=== PATIENT | female | born 1970 | race Caucasian/White ===

== ENCOUNTER 2022-12-18 10:50 | Outpatient (OUT) | payer OTHER, SELFPAY ==
--- NOTE | 2022-12-18 | MM_ITS ---
Patient: JANNETTE MORELOS. Exam Date: 12/18/2022 : 1970 Gender:F Ordering : DR. MINESH GARDNER M.D. Admission #: [id number] Family : Order #: [id number] CLICK HERE TO VIEW EXAM RADIOLOGY REPORT PROCEDURE: MM TOMOSYNTHESIS SCREENING BI COMPARISON: None. INDICATIONS: Justin Screening Mammogram Calculator Name NCI Breast Cancer Risk Assessment Tool 5 Year Breast Cancer Risk 0.90% Lifetime Breast Cancer Risk 7.90% Personal Breast Cancer No Personal Ovarian Cancer No Treatments None Family Cancers Aunt-maternal with breast cancer at age 45; Father with liver cancer at age 64; Grandfather-paternal with stomach/esophagus cancer at age 55. LOCATION: [facility] BREAST COMPOSITION: Scattered areas fibroglandular density. FINDINGS: DIAGNOSTIC CATEGORY 2--BENIGN FINDING. NO CHANGE FROM COMPARISON. Scattered benign-appearing nodules are present. Scattered benign-appearing calcifications are present. Scattered benign-appearing lymph nodes are present. RIGHT BREAST: No significant suspicious finding. LEFT BREAST: No significant suspicious finding. RECOMMENDATIONS: ROUTINE MAMMOGRAM AND CLINICAL EVALUATION IN 12 MONTHS. PLEASE NOTE: A NORMAL MAMMOGRAM DOES NOT EXCLUDE THE POSSIBILITY OF BREAST CANCER. A CLINICALLY SUSPICIOUS PALPABLE LUMP SHOULD BE BIOPSIED. Dictated by: Philippe Ballard MD on 12/18/2022 at 15:33 Approved by: Philippe Ballard MD on 12/18/2022 at 15:34
== END 2022-12-18 10:51 | disposition home or self-care (01) ==
LOC: MAMMO 10:52
PROVIDERS: PCP Family Medicine; Visit Provider Family Medicine
DX: Z12.31 Encounter for screening mammogram for malignant neoplasm of breast (principal); Z80.3 Family history of malignant neoplasm of breast; Z80.0 Family history of malignant neoplasm of digestive organs
CPT/HCPCS: 77063; 77067

== ENCOUNTER 2023-01-11 13:19 | Outpatient (OUT) | payer OTHER, SELFPAY ==
[2023-01-11 13:54] LABS: Alanine Aminotransferase 41 U/L (14-59); Albumin Globulin Ratio 0.9; Albumin Level 3.6 g/dL (3.4-5.0); Alkaline Phosphatase 85 U/L (46-116); Anion Gap 15.7; Aspartate Amino Transferase 37 U/L (15-37); BUN Creatinine Ratio 19.4; Bilirubin Total 0.3 mg/dL (0.2-1.0); Calcium 8.6 mg/dL (8.5-10.1); Carbon Dioxide 27.4 mmol/L (21.0-32.0); Chloride 98 mmol/L (98-107); Chol HDL Ratio 4.9; Cholesterol 173 mg/dL (<=200); Estimated GFR (African America >60 (>=60); Estimated GFR (Non-African Ame >60 (>=60); Globulin 4.2 g/dL; Glucose 173 mg/dL (74-106); HDL Cholesterol 35 mg/dL (40-60); Potassium 4.1 mmol/L (3.5-5.1); Sodium 137 mmol/L (136-145); Thyroid Stimulating Hormone 2.244 uIU/mL (0.358-3.740); Total Protein 7.8 g/dL (6.4-8.2); Triglycerides 195 mg/dL (<=150)
[2023-01-11 14:45] LABS: Basophils Percent Auto 0.4 % (0.2-2.0); Eosinophils Absolute Auto 0.2 10^3/uL (0.0-0.7); Hematocrit 35.9 % (36.0-48.0); Hemoglobin 11.3 g/dL (12.0-16.0); Immature Granulocytes Abs Auto 0.09 10^3/uL (0.00-0.03); Immature Granulocytes Pct Auto 1.2 % (0.0-0.5); Lymphocytes Absolute Auto 2.2 10^3/uL (1.2-3.8); Lymphocytes Percent Auto 28.4 % (20.5-60.0); Mean Corpuscular HGB Conc 31.5 g/dL (29.9-35.2); Mean Corpuscular Hemoglobin 29.4 pg (26.7-34.0); Mean Corpuscular Volume 93.2 fL (81.0-99.0); Monocytes Absolute Auto 0.4 10^3/uL (0.3-0.8); Neutrophils Absolute Auto 4.8 10^3/uL (1.4-6.5); Platelet Count 315 10^3/uL (150-450); Red Blood Count 3.85 10^6/uL (4.20-5.40); Red Cell Distribution Width 12.6 % (11.0-15.0); White Blood Count 7.6 10^3/uL (4.0-11.0)
[2023-01-11 14:52] LABS: Estimated Average Glucose 206 mg/dL; Glycohemoglobin A1C 8.8 % (4.5-6.2)
== END 2023-01-11 13:20 | disposition home or self-care (01) ==
LOC: LAB 13:19
PROVIDERS: PCP Family Medicine; Visit Provider Family Medicine
DX: I10 Essential (primary) hypertension (principal); R73.03 Prediabetes
CPT/HCPCS: 36415; 80053; 80061; 83036; 84443; 85025

== ENCOUNTER 2023-05-08 14:13 | Outpatient (RCR) | payer OTHER, SELFPAY | END 2023-06-03 12:28 | disposition home or self-care (01) | LOC: PT 14:13 | PROVIDERS: PCP Family Medicine; Visit Provider Nurse Practitioner Adult Health | DX: M54.2 Cervicalgia (principal); R20.2 Paresthesia of skin | CPT/HCPCS: 97014; 97110; 97140; 97162 ==

== ENCOUNTER 2023-06-06 11:40 | Outpatient (REF) | payer OTHER, SELFPAY ==
--- OUTSIDE RECORDS SUMMARY | 2023-06-06 11:55 | XMS_ITS | CCD ---
Author Organization [facility] Care Team Providers Care Contract Coordinator Name Role Phone [facility]mitting Unava ilable [facility] Attending Unava ilable [facility] Primary Care Unava ilable [facility] Consulting Unava ilable MISC, DR GOODE Admitting Unavailable MISC, DR GOODE Attending Unavailable MISC, DR GOODE Primary Care Unavailable MISC, DR GOODE Consulting Unavailable WINDNAGEL, DR LASHAUN Joaquin Admitting Unavaila ble WINDNAGEL, DR LASHAUN Joaquin Attending Unavaila ble [facility], [facility] Primary Care Unava ilable WINDNAGEL, DR LASHAUN Joaquin Consulting Unavaila ble MISC, DR GOODE Admitting Unavailable MISC, DR GOODE Attending Unavailable MISC, DR GOODE Primary Care Unavailable ALTOROKEBENEZERZAAsia I Attending Unavailable ALTOROK NEZAM I Attending Unavailable ALTOROK NEZAM I Attending Unavailable Allergies Allergy Classification Reported Allergen(s) Allergy Type Date of Onset Reaction(s) Facility (2 sources) Acetaminophen / HYDROcodone Drug Allergy 3 [facility] Repository (2 sources) Acetaminophen / oxyCODONE Drug Allergy 3 [facility] Repository (2 sources) Acetaminophen / oxyCODONE Drug Allergy 3 [facility] Repository (1 source) Acetaminophen / HYDROcodone; Translations: [HYDROCODONE-ACET AMINOPHEN] Drug Allergy 4 [facility] Repository (1 source) Acetaminophen / oxyCODONE; Translations: [OXYCODONE-ACETAM INOPHEN] Drug Allergy 4 [facility] Repository (1 source) diazePAM; Translations: [DIAZEPAM] Drug Allergy 2 [facility] Repository (1 source) HYDROcodone; Translations: [HYDROCODONE] Drug Allergy 2 [facility] Repository (1 source) oxyCODONE; Translations: [OXYCODONE] Drug Allergy 2 [facility] Repository (1 source) BEE VENOM PROTEIN (HONEY BEE); Translations: [BEE VENOM PROTEIN (HONEY BEE)] Propensity to adverse reactions to drug (disorder) 1 [facility] Repository (1 source) ADHESIVE TAPE-SILICONES; Translations: [ADHESIVE TAPE-SILICONES] Propensity to adverse reactions to drug (disorder) 1 [facility] Repository Problems Active Problems Problem Classification Problem Date Documented Da te Episodic/Chronic Disorders of lipid metabolism (3 sources) Pure hypercholesterolem ia, unspecified; Translations: [Other hyperlipidemia] Onset: 01-08-2022 Chronic Essential hypertension (1 source) Essential (primary) hypertension; Translations: [ESSENTIAL PRIMARY HYPERTENSION] Onset: 06-22-2022 Chronic Immunizations and screening for infectious disease (2 sources) Encounter for screening for other viral diseases; Translations: [Encounter for screening for other viral diseases] Onset: 03-27-2023 Episodic Other aftercare (2 sources) Other middle or intermediate school principal (current) drug therapy; Translations: [Other prison (current) drug therapy] Onset: 03-27-2023 Episodic Other nervous system disorders (4 sources) Tremor, unspecified; Translations: [TREMOR UNSPECIFIED] Onset: 06-20-2022 Episodic Other nervous system disorders (1 source) Anesthesia of skin; Translations: [ANESTHESIA OF SKIN] Onset: 06-22-2022 Episodic Rheumatoid arthritis and related disease (2 sources) Rheumatoid arthritis without rheumatoid factor, multiple sites; Translations: [Rheumatoid arthritis without rheumatoid factor, multiple sites] Onset: 03-27-2023 Chronic Past or Other Problems Problem Classification Problem Date Documented Da te Episodic/Chronic Diabetes mellitus without complication (4 sources) Impaired fasting glucose; Translations: [IMPAIRED FASTING GLUCOSE] Onset: 01-04-2022 Episodic Other connective tissue disease (2 sources) Fibromyalgia; Translations: [Fibromyalgia] Onset: 02-09-2022 Episodic Results Test Name Value Interpretation Reference Range Facil ity CBC WITH AUTO DIFFERENTIALon 03-27-2023 Basophils (Bld) [#/Vol] 0.03 10*3/uL Normal 0.00-0.20 [facility] Comment on above: Performed By: #### L [id number] #### [facility] ([facility]) [address] [place] [address] Basophils/100 WBC (Bld) 0.4 % Normal 0.0-1.0 [facility] Comment on above: Performed By: #### L [id number] #### [facility] ([facility]) [address] [place] [address] Eosinophils (Bld) [#/Vol] 0.11 10*3/uL Normal 0.00-0.50 [facility] Comment on above: Performed By: #### L [id number] #### [facility] ([facility]) [address] [place] [address] Eosinophils/100 WBC (Bld) 1.6 % Normal 0.0-6.0 [facility] Comment on above: Performed By: #### L [id number] #### [facility] ([facility]) [address] [place] [address] Erythrocyte distribution width (RBC) [Ratio] 12.5 % Normal 11.5-15.0 [facility] Comment on above: Performed By: #### L [id number] #### [facility] ([facility]) [address] [address] ERYTHROCYTE MEAN CORPUSCULAR HEMOGLOBIN CONCENTRATION (G/DL) BY AUTOMATED 31.0 g/dL Low 32.0-35.0 [facility] Comment on above: Performed By: #### L [id number] #### [facility] ([facility]) [address] [place] [address] Hematocrit (Bld) [Volume fraction] 40.0 % Normal 36.0-48.0 [facility] Comment on above: Performed By: #### L [id number] #### [facility] ([facility]) [address] [place] [address] Hemoglobin (Bld) [Mass/Vol] 12.4 g/dL Normal 12.0-15.0 [facility] Comment on above: Performed By: #### L [id number] #### [facility] ([facility]) [address] [place] [address] Immature granulocytes (Bld) [#/Vol] 0.03 10*3/uL Normal 0.00-0.20 [facility] Comment on above: Performed By: #### L [id number] #### [facility] ([facility]) [address] [address] Immature granulocytes/100 WBC (Bld) 0.4 % Normal 0.0-1.0 [facility] Comment on above: Performed By: #### L [id number] #### [facility] ([facility]) [address] [place] [address] Lymphocytes (Bld) [#/Vol] 1.89 10*3/uL Normal 1.20-4.00 [facility] Comment on above: Performed By: #### L [id number] #### [facility] ([facility]) [address] [place] [address] Lymphocytes/100 WBC (Bld) 27.3 % Normal 20.0-45.0 [facility] Comment on above: Performed By: #### L [id number] #### [facility] ([facility]) [address] [place] [address] MCH (RBC) [Entitic mass] 29.2 pg Normal 27.0-33.0 [facility] Comment on above: Performed By: #### L [id number] #### [facility] ([facility]) [address] [address] MCV (RBC) [Entitic vol] 94.3 fL Normal 82.0-98.0 [facility] Comment on above: Performed By: #### L [id number] #### [facility] ([facility]) [address] [place] [address] Monocytes (Bld) [#/Vol] 0.36 10*3/uL Normal 0.10-1.00 [facility] Comment on above: Performed By: #### L [id number] #### [facility] ([facility]) [address] [place] [address] Monocytes/100 WBC (Bld) 5.2 % Normal 5.0-12.0 [facility] Comment on above: Performed By: #### L [id number] #### [facility] ([facility]) [address] [place] [address] Neutrophils (Bld) [#/Vol] 4.51 10*3/uL Normal 1.60-7.60 [facility] Comment on above: Performed By: #### L [id number] #### [facility] ([facility]) [address] [place] [address] Neutrophils/100 WBC (Bld) 65.1 % Normal 40.0-72.0 [facility] Comment on above: Performed By: #### L [id number] #### [facility] ([facility]) [address] [place] [address] NRBC (PER 100 WBCS) BY AUTOMATED COUNT 0.0 % Normal 0 [facility] Comment on above: Performed By: #### L [id number] #### [facility] ([facility]) [address] [place] [address] PLATELETS (10*3/UL) IN BLOOD AUTOMATED COUNT 298 10*3/uL Normal 150-400 [facility] Comment on above: Performed By: #### L [id number] #### [facility] ([facility]) [address] [place] [address] RBC (Bld) [#/Vol] 4.24 10*6/uL Normal 3.80-5.00 [facility] Comment on above: Performed By: #### L [id number] #### [facility] ([facility]) [address] [place] [address] WBC (Bld) [#/Vol] 6.93 10*3/uL Normal 4.00-10.60 [facility] Comment on above: Performed By: #### L [id number] #### [facility] ([facility]) [address] [place] [address] COMPREHENSIVE METABOLIC PANE Edvin 03-27-2023 Albumin [Mass/Vol] 4.4 g/dL Normal 3.5-5.7 [facility] Comment on above: Performed By: #### L [id number] #### [facility] ([facility]) [address] [place] [address] ALP [Catalytic activity/Vol] 93 U/L Normal 34-104 [facility] Comment on above: Performed By: #### L [id number] #### [facility] ([facility]) [address] [place] [address] ALT [Catalytic activity/Vol] 46 U/L Normal 7-52 [facility] Comment on above: Performed By: #### L [id number] #### [facility] ([facility]) [address] [place] [address] Anion gap [Moles/Vol] 13 mmol/L Normal 7-20 [facility] Comment on above: Performed By: #### L [id number] #### [facility] ([facility]) [address] [place] [address] AST [Catalytic activity/Vol] 75 U/L High 13-39 [facility] Comment on above: Performed By: #### L [id number] #### [facility] ([facility]) [address] [place] [address] Bilirubin [Mass/Vol] 0.3 mg/dL Normal 0.3-1.0 [facility] Comment on above: Performed By: #### L [id number] #### [facility] ([facility]) [address] [place] [address] Calcium [Mass/Vol] 9.2 mg/dL Normal 8.6-10.3 [facility] Comment on above: Performed By: #### L [id number] #### [facility] ([facility]) [address] [place] [address] Chloride [Moles/Vol] 100 mmol/L Normal 98-107 [facility] Comment on above: Performed By: #### L [id number] #### [facility] ([facility]) [address] [place] [address] CO2 [Moles/Vol] 28 mmol/L Normal 21-31 [facility] Comment on above: Performed By: #### L [id number] #### [facility] ([facility]) [address] [place] [address] Creatinine [Mass/Vol] 0.79 mg/dL Normal 0.60-1.20 [facility] Comment on above: Performed By: #### L [id number] #### [facility] ([facility]) [address] [place] [address] GLOMERULAR FILTRATION RATE ML/MIN/1.73 SQ M.PREDICTED 90.5 mL/min/1.73m*2 Normal >60.0 [facility] Comment on above: Result Comment: The [facility]???s estimated glomerular filtration rate (eGFR) will no longer include consideration of race in its calculation. The National Kidney Foundation???s eGFR Task Force developed new recommendations for the estimation of the glomerular filtration rate in the [place] They recommend immediate implementation of the new equation refit without the race variable in all laboratories because the calculation does not include race. In addition to not including race in the calculation and reporting, it included diversity in its development, and has acceptable performance characteristics and potential consequences that do not disproportionately affect any one group of individuals. Performed By: #### L [id number] #### [facility] ([facility]) [address] [place] [address] Glucose [Mass/Vol] 140 mg/dL High 70-100 [facility] Comment on above: Performed By: #### L [id number] #### [facility] ([facility]) [address] [place] [address] Potassium [Moles/Vol] 4.6 mmol/L Normal 3.5-5.1 [facility] Comment on above: Performed By: #### L [id number] #### [facility] ([facility]) [address] [place] [address] Protein [Mass/Vol] 7.9 g/dL Normal 6.0-8.3 [facility] Comment on above: Performed By: #### L [id number] #### [facility] ([facility]) [address] [place] [address] Sodium [Moles/Vol] 136 mmol/L Normal 136-145 [facility] Comment on above: Performed By: #### L [id number] #### [facility] ([facility]) [address] [place] [address] Urea nitrogen [Mass/Vol] 19 mg/dL Normal 7-25 [facility] Comment on above: Performed By: #### L [id number] #### [facility] ([facility]) [address] [place] [address] UREA NITROGEN/CREATININE (MASS RATIO) IN SER/PLAS 24.1 Normal [facility] Comment on above: Performed By: #### L [id number] #### [facility] ([facility]) [address] [place] [address] Documentationon 03-27-2023 Documentation [id number] Asia Ramirez 1970 F Date Provider Department Center 03/27/2023 MARTHA SOSA [facility] Marisol Heal No family history on file [facility] Follow-Upon 03-27-2023 Follow-Up [id number] Asia Ramirez 1970 F Date Provider Department Center 03/27/2023 215-PAPITO STEWARD I [facility] Marisol Heal No family history on file Level of Service:91339 [place] OFFICE/OUTPATIENT ESTABLISHED MOD MDM 30 MIN (GC) Reason for Visit and Comments: Follow-up [[id number]] Normal [facility] HEPATITIS B CORE ANTIBODY, T Saeed 03-27-2023 HEPATITIS B VIRUS CORE AB (PRESENCE) IN SER/PLAS BY IMM Non-Reactive Normal Nonreactive [facility] Comment on above: Performed By: #### L [id number] #### [facility] ([facility]) [address] [place] [address] HEPATITIS B SURFACE ANTIGENo n 03-27-2023 HEPATITIS B VIRUS SURFACE AG PRESENCE IN SERUM Non-Reactive Normal Nonreactive [facility] Comment on above: Performed By: #### L [id number] #### [facility] ([facility]) [address] [place] [address] HEPATITIS C ANTIBODYon 03-27 HEPATITIS C VIRUS AB PRESENCE IN SERUM Non-Reactive Normal Nonreactive [facility] Comment on above: Performed By: #### L [id number] #### [facility] ([facility]) [address] [place] [address] QUANTIFERON TB GOLDon 2023 MITOGEN MINUS NIL 6.16 IU/mL Normal [facility] Comment on above: Performed By: #### L [id number] #### [facility] ([facility]) [address] [place] [address] NIL 0.05 IU/mL Normal [facility] Comment on above: Performed By: #### L [id number] #### [facility] ([facility]) [address] [place] [address] QUANTIFERON - TB GOLD TEST Negative Normal Negative [facility] Comment on above: Result Comment: Jomar tiferon TB Gold Interpretation (IU/mL): NEGATIVE: M. tuberculosis infection not likely. Nil: <=8.0 TB1 Antigen minus Nil ([id number]): <0.35 OR >=0.35; and <25% of Nil value. TB2 Antigen minus Nil ([id number]): <0.35 OR >=0.35; and <25% of Nil value. Performed By: #### L [id number] #### [facility] ([facility]) [address] [place] [address] TB1 AG 0.05 IU/mL [facility] Comment on above: Performed By: #### L [id number] #### [facility] ([facility]) [address] [place] [address] TB1 AG MINUS NIL 0.00 IU/mL Normal [facility] Comment on above: Performed By: #### L [id number] #### [facility] ([facility]) [address] [place] [address] TB2 AG 0.04 IU/mL Normal [facility] Comment on above: Performed By: #### L [id number] #### [facility] ([facility]) [address] [place] [address] TB2 AG MINUS NIL -0.01 IU/mL Normal [facility] Comment on above: Performed By: #### L [id number] #### [facility] ([facility]) [address] [place] [address] SEDIMENTATION RATEon 024 SEDIMENTATION RATE, ERYTHROCYTE 43 mm/hr High <=20 [facility] Comment on above: Performed By: #### L [id number] #### [facility] ([facility]) [address] [place] [address] 36on 01-10-2023 36 PT has requested all of her Rheum prescribed medications be transferred to [facility]. Pharmacy has requested new orders as created. Last vist: 11/21/22 Next visit: 03/27/23 CMP/CBC: 11/21/22 [facility] Refillon 01-10-2023 Refill [id number] Asia Ramirez 1970 F Date Provider Department Center 01/10/2023 ROXANNE BERRY [facility] Marisol Heal No family history on file Reason for Visit and Comments: Med Refill [[id number]] [facility] 36on 01-08-2023 36 Last visit: 11/21/22 Next visit: 03/27/23 CBC/CMP: 11/21/22 Patient has requested for medications to be filled at [facility] as noted. [facility] 01-08-2023 Refill [id number] Asia Ramirez 1970 F Date Provider Department Center 01/08/2023 [facility]OXANNE BERRY [facility] Marisol Heal No family history on file [facility] 36on 11-28-2022 36 Last visit 11/21/22 Upcoming visit 03/27/23 Last cbc/cmp 11/21/22 Normal [facility] 36on 11-21-2022 36 Last visit 06/29/22 Upcoming visit 11/21/22 Last cbc/cmp 06/29/22 Normal [facility] CBC WITH AUTO DIFFERENTIALon 11-21-2022 Basophils (Bld) [#/Vol] 0.03 10*3/uL Normal 0.00-0.20 [facility] Comment on above: Performed By: #### L [id number] #### [facility] ([facility]) [address] [place] [address] Basophils/100 WBC (Bld) 0.5 % Normal 0.0-1.0 [facility] Comment on above: Performed By: #### L [id number] #### [facility] ([facility]) [address] [place] [address] Eosinophils (Bld) [#/Vol] 0.13 10*3/uL Normal 0.00-0.50 [facility] Comment on above: Performed By: #### L [id number] #### [facility] ([facility]) [address] [place] [address] Eosinophils/100 WBC (Bld) 2.3 % Normal 0.0-6.0 [facility] Comment on above: Performed By: #### L [id number] #### [facility] ([facility]) [address] [place] [address] Erythrocyte distribution width (RBC) [Ratio] 12.9 % Normal 11.5-15.0 [facility] Comment on above: Performed By: #### L [id number] #### [facility] ([facility]) [address] [place] [address] ERYTHROCYTE MEAN CORPUSCULAR HEMOGLOBIN CONCENTRATION (G/DL) BY AUTOMATED 30.5 g/dL Low 32.0-35.0 [facility] Comment on above: Performed By: #### L [id number] #### [facility] ([facility]) [address] [place] [address] Hematocrit (Bld) [Volume fraction] 36.7 % Normal 36.0-48.0 [facility] Comment on above: Performed By: #### L [id number] #### [facility] ([facility]) [address] [place] [address] Hemoglobin (Bld) [Mass/Vol] 11.2 g/dL Low 12.0-15.0 [facility] Comment on above: Performed By: #### L [id number] #### [facility] ([facility]) [address] [place] [address] Immature granulocytes (Bld) [#/Vol] 0.20 10*3/uL Normal 0.00-0.20 [facility] Comment on above: Performed By: #### L [id number] #### [facility] ([facility]) [address] [place] [address] Immature granulocytes/100 WBC (Bld) 3.5 % High 0.0-1.0 [facility] Comment on above: Performed By: #### L [id number] #### [facility] ([facility]) [address] [place] [address] Lymphocytes (Bld) [#/Vol] 1.70 10*3/uL Normal 1.20-4.00 [facility] Comment on above: Performed By: #### L [id number] #### [facility] ([facility]) [address] [place] [address] Lymphocytes/100 WBC (Bld) 29.8 % Normal 20.0-45.0 [facility] Comment on above: Performed By: #### L [id number] #### [facility] ([facility]) [address] [place] [address] MCH (RBC) [Entitic mass] 29.1 pg Normal 27.0-33.0 [facility] Comment on above: Performed By: #### L [id number] #### [facility] ([facility]) [address] [place] [address] MCV (RBC) [Entitic vol] 95.3 fL Normal 82.0-98.0 [facility] Comment on above: Performed By: #### L [id number] #### [facility] ([facility]) [address] [place] [address] Monocytes (Bld) [#/Vol] 0.30 10*3/uL Normal 0.10-1.00 [facility] Comment on above: Performed By: #### L [id number] #### [facility] ([facility]) [address] [place] [address] Monocytes/100 WBC (Bld) 5.3 % Normal 5.0-12.0 [facility] Comment on above: Performed By: #### L [id number] #### [facility] ([facility]) [address] [place] [address] Neutrophils (Bld) [#/Vol] 3.35 10*3/uL Normal 1.60-7.60 [facility] Comment on above: Performed By: #### L [id number] #### [facility] ([facility]) [address] [place] [address] Neutrophils/100 WBC (Bld) 58.6 % Normal 40.0-72.0 [facility] Comment on above: Performed By: #### L [id number] #### [facility] ([facility]) [address] [place] [address] NRBC (PER 100 WBCS) BY AUTOMATED COUNT 0.0 % Normal 0 [facility] Comment on above: Performed By: #### L [id number] #### [facility] ([facility]) [address] [place] [address] PLATELETS (10*3/UL) IN BLOOD AUTOMATED COUNT 367 10*3/uL Normal 150-400 [facility] Comment on above: Performed By: #### L [id number] #### [facility] ([facility]) [address] [place] [address] RBC (Bld) [#/Vol] 3.85 10*6/uL Normal 3.80-5.00 [facility] Comment on above: Performed By: #### L [id number] #### [facility] ([facility]) [address] [place] [address] WBC (Bld) [#/Vol] 5.71 10*3/uL Normal 4.00-10.60 [facility] Comment on above: Performed By: #### L [id number] #### [facility] ([facility]) [address] [place] [address] COMPREHENSIVE METABOLIC PANE Edvin 11-21-2022 Albumin [Mass/Vol] 4.3 g/dL Normal 3.5-5.7 [facility] Comment on above: Performed By: #### L [id number] #### [facility] ([facility]) [address] [place] [address] ALP [Catalytic activity/Vol] 77 U/L Normal 34-104 [facility] Comment on above: Performed By: #### L [id number] #### [facility] ([facility]) [address] [place] [address] ALT [Catalytic activity/Vol] 51 U/L Normal 7-52 [facility] Comment on above: Performed By: #### L [id number] #### [facility] ([facility]) [address] [place] [address] Anion gap [Moles/Vol] 14 mmol/L Normal 7-20 [facility] Comment on above: Performed By: #### L [id number] #### [facility] ([facility]) [address] [place] [address] AST [Catalytic activity/Vol] 91 U/L High 13-39 [facility] Comment on above: Performed By: #### L [id number] #### [facility] ([facility]) [address] [place] [address] Bilirubin [Mass/Vol] 0.3 mg/dL Normal 0.3-1.0 [facility] Comment on above: Performed By: #### L [id number] #### [facility] ([facility]) [address] [place] [address] Calcium [Mass/Vol] 9.0 mg/dL Normal 8.6-10.3 [facility] Comment on above: Performed By: #### L [id number] #### [facility] ([facility]) [address] [place] [address] Chloride [Moles/Vol] 100 mmol/L Normal 98-107 [facility] Comment on above: Performed By: #### L [id number] #### [facility] ([facility]) [address] [place] [address] CO2 [Moles/Vol] 26 mmol/L Normal 21-31 [facility] Comment on above: Performed By: #### L [id number] #### [facility] ([facility]) [address] [place] [address] Creatinine [Mass/Vol] 0.74 mg/dL Normal 0.60-1.20 [facility] Comment on above: Performed By: #### L [id number] #### [facility] ([facility]) [address] [place] [address] GLOMERULAR FILTRATION RATE ML/MIN/1.73 SQ M.PREDICTED 97.9 mL/min/1.73m*2 Normal >60.0 [facility] Comment on above: Result Comment: The [facility]???s estimated glomerular filtration rate (eGFR) will no longer include consideration of race in its calculation. The National Kidney Foundation???s eGFR Task Force developed new recommendations for the estimation of the glomerular filtration rate in the [place] They recommend immediate implementation of the new equation refit without the race variable in all laboratories because the calculation does not include race. In addition to not including race in the calculation and reporting, it included diversity in its development, and has acceptable performance characteristics and potential consequences that do not disproportionately affect any one group of individuals. Performed By: #### L [id number] #### [facility] ([facility]) [address] [place] [address] Glucose [Mass/Vol] 191 mg/dL High 70-100 [facility] Comment on above: Performed By: #### L [id number] #### [facility] ([facility]) [address] [place] [address] Potassium [Moles/Vol] 3.9 mmol/L Normal 3.5-5.1 [facility] Comment on above: Performed By: #### L [id number] #### [facility] ([facility]) [address] [place] [address] Protein [Mass/Vol] 7.6 g/dL Normal 6.0-8.3 [facility] Comment on above: Performed By: #### L [id number] #### [facility] ([facility]) [address] [place] [address] Sodium [Moles/Vol] 136 mmol/L Normal 136-145 [facility] Comment on above: Performed By: #### L [id number] #### [facility] ([facility]) [address] [place] [address] Urea nitrogen [Mass/Vol] 12 mg/dL Normal 7-25 [facility] Comment on above: Performed By: #### L [id number] #### [facility] ([facility]) [address] [place] [address] UREA NITROGEN/CREATININE (MASS RATIO) IN SER/PLAS 16.2 Normal [facility] Comment on above: Performed By: #### L [id number] #### [facility] ([facility]) [address] [place] [address] Follow-Upon 11-21-2022 Follow-Up [id number] Asia Ramirez 1970 F Date Provider Department Center 11/21/2022 [place] I [facility] RHEUM Marisol Heal No family history on file Level of Service:24779 [place] OFFICE/OUTPATIENT ESTABLISHED MOD MDM 30-39 MIN () Reason for Visit and Comments: Follow-up [[id number]] Normal [facility] HEPATITIS B CORE ANTIBODY, T OTALon 11-21-2022 HEPATITIS B VIRUS CORE AB (PRESENCE) IN SER/PLAS BY IMM Non-Reactive Normal Nonreactive [facility] Comment on above: Performed By: #### L [id number] ####[facility] ([facility])[address] [place] [address] HEPATITIS B SURFACE ANTIGENo n 11-21-2022 HEPATITIS B VIRUS SURFACE AG PRESENCE IN SERUM Non-Reactive Normal Nonreactive [facility] Comment on above: Performed By: #### L [id number] #### [facility] ([facility]) [address] [place] [address] HEPATITIS C ANTIBODYon 11-21 HEPATITIS C VIRUS AB PRESENCE IN SERUM Non-Reactive Normal Nonreactive [facility] Comment on above: Performed By: #### L [id number] #### [facility] ([facility]) [address] [place] [address] LIPID PANELon 11-21-2022 CHOL/HDL 6.9 mg/dL Normal [facility] Comment on above: Performed By: #### L [id number] ####[facility] ([facility])[address] [place] [address] Cholesterol [Mass/Vol] 264 mg/dL High 120-200 [facility] Comment on above: Performed By: #### L [id number] ####[facility] ([facility])[address] [place] [address] CHOLESTEROL IN LDL (MG/DL) IN SERUM OR PLASMA BY CALCULATION Normal [facility] Comment on above: Result Comment: Calc ulated LDL invalid, triglycerides >400 mg/dl Performed By: #### L [id number] ####[facility] ([facility])[address] [place] [address] Magnesium [Mass/Vol] 491 mg/dL High 40-149 [facility] Comment on above: Result Comment: TRIG LYCERIDE REFERENCE RANGE: 20 YEARS AND OLDER CARDIOVASCULAR RISK LESS THAN 150 mg/dL LOW RISK 150 TO 199 mg/dL BORDERLINE RISK 200 mg/dL AND GREATER HIGH RISK Performed By: #### L [id number] ####[facility] ([facility])[address] [place] [address] Magnesium [Mass/Vol] 38 mg/dL Normal 23-92 [facility] Comment on above: Performed By: #### L [id number] ####[facility] ([facility])[address] [place] [address] NON HDL CHOL. (LDL+VLDL) 226 Normal [facility] Comment on above: Performed By: #### L [id number] ####[facility] ([facility])[address] [place] [address] TOTAL VLDL-C 98 mg/dL High 0-40 [facility] Comment on above: Performed By: #### L [id number] ####[facility] ([facility])[address] [place] [address] Orders Onlyon 11-21-2022 Orders Only [id number] Asia Ramirez 1970 F Date Provider Department Center 11/21/2022 [facility] R[facility]UM Marisol Heal No family history on file Normal [facility] QUANTIFERON TB GOLDon 2022 MITOGEN MINUS NIL 2.70 IU/mL Normal [facility] Comment on above: Performed By: #### L [id number] #### [facility] ([facility]) [address] [place] [address] NIL 0.09 IU/mL Normal [facility] Comment on above: Performed By: #### L [id number] #### [facility] ([facility]) [address] [place] [address] QUANTIFERON - TB GOLD TEST Negative Normal Negative [facility] Comment on above: Result Comment: Jomar tiferon TB Gold Interpretation (IU/mL): NEGATIVE: M. tuberculosis infection not likely. Nil: <=8.0 TB1 Antigen minus Nil ([id number]): <0.35 OR >=0.35; and <25% of Nil value. TB2 Antigen minus Nil ([id number]): <0.35 OR >=0.35; and <25% of Nil value. Performed By: #### L [id number] #### [facility] ([facility]) [address] [place] [address] TB1 AG 0.07 IU/mL Normal [facility] Comment on above: Performed By: #### L [id number] #### [facility] ([facility]) [address] [place] [address] TB1 AG MINUS NIL -0.02 IU/mL Normal [facility] Comment on above: Performed By: #### L [id number] #### [facility] ([facility]) [address] [place] [address] TB2 AG 0.06 IU/mL Normal [facility] Comment on above: Performed By: #### L [id number] #### [facility] ([facility]) [address] [place] [address] TB2 AG MINUS NIL -0.03 IU/mL Normal [facility] Comment on above: Performed By: #### L [id number] #### [facility] ([facility]) [address] [place] [address] Refillon 11-21-2022 Refill [id number] Asia Ramirez 1970 F Date Provider Department Center 11/21/2022 215-[place], [place] I [facility] Marisol Heal No family history on file Reason for Visit and Comments: Med Refill [[id number]] Normal [facility] SEDIMENTATION RATEon 023 SEDIMENTATION RATE, ERYTHROCYTE 55 mm/hr High <=20 [facility] Comment on above: Performed By: #### L [id number] #### [facility] ([facility]) [address] [place] [address] 36on 10-22-2022 36 Last visit 06/29/22 Upcoming visit 11/21/22 Last cbc/cmp 06/29/22 Normal [facility] 36 [facility] patient Normal [facility] Refillon 10-21-2022 Refill [id number] Asia Ramirez 1970 F Date Provider Department Center 10/21/2022 [place] I [facility] Marisol Heal No family history on file Reason for Visit and Comments: Med Refill [[id number]] Normal [facility] 36on 09-24-2022 36 R[facility] patient Normal [facility] Refillon 09-20-2022 Refill [id number] Asia Ramirez jud E 1970 F Date Provider Department Center 09/20/2022 [place] I [facility] RHEUM Marisol Heal No family history on file Reason for Visit and Comments: Med Refill [[id number]] Normal [facility] CBC WITH AUTO DIFFERENTIALon 06-29-2022 Basophils (Bld) [#/Vol] 0.04 10*3/uL Normal 0.00-0.20 [facility] Comment on above: Performed By: #### L [id number] ####[facility] ([facility])[address] [place] [address] Basophils/100 WBC (Bld) 0.5 % Normal 0.0-1.0 [facility] Comment on above: Performed By: #### L [id number] ####[facility] ([facility])[address] [place] [address] Eosinophils (Bld) [#/Vol] 0.14 10*3/uL Normal 0.00-0.50 [facility] Comment on above: Performed By: #### L [id number] ####[facility] ([facility])[address] [place] [address] Eosinophils/100 WBC (Bld) 1.7 % Normal 0.0-6.0 [facility] Comment on above: Performed By: #### L [id number] ####[facility] ([facility])[address] [place] [address] Erythrocyte distribution width (RBC) [Ratio] 13.2 % Normal 11.5-15.0 [facility] Comment on above: Performed By: #### L [id number] ####[facility] ([facility])[address] [place] [address] ERYTHROCYTE MEAN CORPUSCULAR HEMOGLOBIN CONCENTRATION (G/DL) BY AUTOMATED 32.0 g/dL Normal 32.0-35.0 [facility] Comment on above: Performed By: #### L [id number] ####[facility] ([facility])[address] [place] [address] Hematocrit (Bld) [Volume fraction] 36.9 % Normal 36.0-48.0 [facility] Comment on above: Performed By: #### L [id number] ####[facility] ([facility])[address] [place] [address] Hemoglobin (Bld) [Mass/Vol] 11.8 g/dL Low 12.0-15.0 [facility] Comment on above: Performed By: #### L [id number] ####[facility] ([facility])[address] [place] [address] Immature granulocytes (Bld) [#/Vol] 0.06 10*3/uL Normal 0.00-0.20 [facility] Comment on above: Performed By: #### L [id number] ####[facility] ([facility])[address] [place] [address] Immature granulocytes/100 WBC (Bld) 0.7 % Normal 0.0-1.0 [facility] Comment on above: Performed By: #### L [id number] ####[facility] ([facility])[address] [place] [address] Lymphocytes (Bld) [#/Vol] 1.46 10*3/uL Normal 1.20-4.00 [facility] Comment on above: Performed By: #### L [id number] ####[facility] ([facility])[address] [place] [address] Lymphocytes/100 WBC (Bld) 17.3 % Low 20.0-45.0 [facility] Comment on above: Performed By: #### L [id number] ####[facility] ([facility])[address] [place] [address] MCH (RBC) [Entitic mass] 29.5 pg Normal 27.0-33.0 [facility] Comment on above: Performed By: #### L [id number] ####[facility] ([facility])[address] [place] [address] MCV (RBC) [Entitic vol] 92.3 fL Normal 82.0-98.0 [facility] Comment on above: Performed By: #### L [id number] ####[facility] ([facility])[address] [place] [address] Monocytes (Bld) [#/Vol] 0.44 10*3/uL Normal 0.10-1.00 [facility] Comment on above: Performed By: #### L [id number] ####[facility] ([facility])[address] [place] [address] Monocytes/100 WBC (Bld) 5.2 % Normal 5.0-12.0 [facility] Comment on above: Performed By: #### L [id number] ####[facility] ([facility])[address] [place] [address] Neutrophils (Bld) [#/Vol] 6.30 10*3/uL Normal 1.60-7.60 [facility] Comment on above: Performed By: #### L [id number] ####[facility] ([facility])[address] [place] [address] Neutrophils/100 WBC (Bld) 74.6 % High 40.0-72.0 [facility] Comment on above: Performed By: #### L [id number] ####[facility] ([facility])[address] [place] [address] NRBC (PER 100 WBCS) BY AUTOMATED COUNT 0.0 % Normal 0.0-0.0 [facility] Comment on above: Performed By: #### L [id number] ####[facility] ([facility])[address] [place] [address] PLATELETS (10*3/UL) IN BLOOD AUTOMATED COUNT 278 10*3/uL Normal 150-400 [facility] Comment on above: Performed By: #### L [id number] ####[facility] ([facility])[address] [place] [address] RBC (Bld) [#/Vol] 4.00 10*6/uL Normal 3.80-5.00 [facility] Comment on above: Performed By: #### L [id number] ####[facility] ([facility])[address] [place] [address] WBC (Bld) [#/Vol] 8.44 10*3/uL Normal 4.00-10.60 [facility] Comment on above: Performed By: #### L [id number] ####[facility] ([facility])[address] [place] [address] COMPREHENSIVE METABOLIC PANE Edvin 06-29-2022 Albumin [Mass/Vol] 4.5 g/dL Normal 3.5-5.7 [facility] Comment on above: Performed By: #### L [id number] #### [facility] ([facility]) [address] [place] [address] ALP [Catalytic activity/Vol] 96 U/L Normal 34-104 [facility] Comment on above: Performed By: #### L [id number] #### [facility] ([facility]) [address] [place] [address] ALT [Catalytic activity/Vol] 50 U/L Normal 7-52 [facility] Comment on above: Performed By: #### L [id number] #### [facility] ([facility]) [address] [place] [address] Anion gap [Moles/Vol] 16 mmol/L Normal 7-20 [facility] Comment on above: Performed By: #### L [id number] #### [facility] ([facility]) [address] [place] [address] AST [Catalytic activity/Vol] 74 U/L High 13-39 [facility] Comment on above: Performed By: #### L [id number] #### [facility] ([facility]) [address] [place] [address] Bilirubin [Mass/Vol] 0.3 mg/dL Normal 0.3-1.0 [facility] Comment on above: Performed By: #### L [id number] #### [facility] ([facility]) [address] [place] [address] Calcium [Mass/Vol] 9.6 mg/dL Normal 8.6-10.3 [facility] Comment on above: Performed By: #### L [id number] #### [facility] ([facility]) [address] [place] [address] Chloride [Moles/Vol] 101 mmol/L Normal 98-107 [facility] Comment on above: Performed By: #### L [id number] #### [facility] ([facility]) [address] [place] [address] CO2 [Moles/Vol] 25 mmol/L Normal 21-31 [facility] Comment on above: Performed By: #### L [id number] #### [facility] ([facility]) [address] [place] [address] Creatinine [Mass/Vol] 0.98 mg/dL Normal 0.60-1.20 [facility] Comment on above: Performed By: #### L [id number] #### [facility] ([facility]) [address] [place] [address] GLOMERULAR FILTRATION RATE ML/MIN/1.73 SQ M.PREDICTED 70.3 mL/min/1.73m*2 Normal >60.0 [facility] Comment on above: Result Comment: The [facility]???s estimated glomerular filtration rate (eGFR) will no longer include consideration of race in its calculation. The National Kidney Foundation???s eGFR Task Force developed new recommendations for the estimation of the glomerular filtration rate in the [place] They recommend immediate implementation of the new equation refit without the race variable in all laboratories because the calculation does not include race. In addition to not including race in the calculation and reporting, it included diversity in its development, and has acceptable performance characteristics and potential consequences that do not disproportionately affect any one group of individuals. Performed By: #### L [id number] #### [facility] ([facility]) [address] [place] [address] Glucose [Mass/Vol] 177 mg/dL High 70-100 [facility] Comment on above: Performed By: #### L [id number] #### [facility] ([facility]) [address] [place] [address] Potassium [Moles/Vol] 4.6 mmol/L Normal 3.5-5.1 [facility] Comment on above: Performed By: #### L [id number] #### [facility] ([facility]) [address] [place] [address] Protein [Mass/Vol] 7.8 g/dL Normal 6.0-8.3 [facility] Comment on above: Performed By: #### L [id number] #### [facility] ([facility]) [address] [place] [address] Sodium [Moles/Vol] 137 mmol/L Normal 136-145 [facility] Comment on above: Performed By: #### L [id number] #### [facility] ([facility]) [address] [place] [address] Urea nitrogen [Mass/Vol] 29 mg/dL High 7-25 [facility] Comment on above: Performed By: #### L [id number] #### [facility] ([facility]) [address] [place] [address] UREA NITROGEN/CREATININE (MASS RATIO) IN SER/PLAS 29.6 Normal [facility] Comment on above: Performed By: #### L [id number] #### [facility] ([facility]) [address] [place] [address] Follow-Upon 06-29-2022 Follow-Up [id number] Asia Ramirez 1970 F Date Provider Department Center 06/29/[address] [place], [place] [address], [place] I [facility] RHEUM Marisol Heal No family history on file Level of Service:55882 [place] OFFICE/OUTPATIENT ESTABLISHED MOD MDM 30-39 MIN (GC) Reason for Visit and Comments: Follow-up [[id number]] Normal [facility] LIPID PANELon 06-29-2022 CHOL/HDL 4.8 mg/dL Normal [facility] Comment on above: Performed By: #### L [id number] #### [facility] ([facility]) [address] [facility] [place] [address] Cholesterol [Mass/Vol] 197 mg/dL Normal 120-200 [facility] Comment on above: Performed By: #### L [id number] #### [facility] ([facility]) [address] [place] [address] Magnesium [Mass/Vol] 258 mg/dL High 40-149 [facility] Comment on above: Result Comment: TRIG LYCERIDE REFERENCE RANGE: 20 YEARS AND OLDER CARDIOVASCULAR RISK LESS THAN 150 mg/dL LOW RISK 150 TO 199 mg/dL BORDERLINE RISK 200 mg/dL AND GREATER HIGH RISK Performed By: #### L [id number] #### [facility] ([facility]) [address] [place] [address] Magnesium [Mass/Vol] 104 mg/dL Normal 0-160 [facility] Comment on above: Performed By: #### L [id number] #### [facility] ([facility]) [address] [place] [address] Magnesium [Mass/Vol] 41 mg/dL Normal 23-92 [facility] Comment on above: Performed By: #### L [id number] #### [facility] ([facility]) [address] [place] [address] NON HDL CHOL. (LDL+VLDL) 156 Normal [facility] Comment on above: Performed By: #### L [id number] #### [facility] ([facility]) [address] [place] [address] TOTAL VLDL-C 52 mg/dL High 0-40 [facility] Comment on above: Performed By: #### L [id number] #### [facility] ([facility]) [address] [place] [address] Labon 06-29-2022 Lab [id number] Asia Ramirez 1970 F Date Provider Department Center 06/29/2022 2244-[facility] MP LAB RESOURCE MP DRAW Medical Pavi No family history on file Normal [facility] SEDIMENTATION RATEon 023 SEDIMENTATION RATE, ERYTHROCYTE 56 mm/hr High <=20 [facility] Comment on above: Performed By: #### L [id number] #### [facility] ([facility]) [address] [place] [address] 25-HYDROXY VIT D (D2+D3 FRAC ) LC/MS-MSon 06-26-2022 25-Hydroxy, Vitamin D 11 ng/mL Critically low [facility] Comment on above: Result Comment: Refe rence Range: All Ages: Target levels 30 - 100 Performed By: #### V ITDLC #### [facility] [address] [place] [address] Dr. Asia Potter 25-Hydroxy, Vitamin D-2 1.0 ng/mL Normal [facility] Comment on above: Result Comment: This test was developed and its performance characteristics determined by [facility]. It has not been cleared or approved by the Food and Drug Administration. Performed By: #### V ITDLC #### [facility] [address] [place] [address] Dr. Asia Potter 25-Hydroxy, Vitamin D-3 10 ng/mL Normal [facility] Comment on above: Result Comment: This test was developed and its performance characteristics determined by [facility]. It has not been cleared or approved by the Food and Drug Administration. Performed By: #### V ITDLC #### [facility] [address] [place] [address] Dr. Asia Potter PROF CHEM 8 (BAS METB)on Anion gap [Moles/Vol] 16.5 mmol/L Normal [facility] Comment on above: Performed By: #### B MP #### [facility] [address] [place] [address] Dr. Asia Potter Calcium [Mass/Vol] 10.0 mg/dL Normal 8.5-10.1 [facility] Comment on above: Performed By: #### B MP #### [facility] [address] [place] [address] [address] Asia Potter Chloride [Moles/Vol] 98 mmol/L Normal 98-107 [facility] Comment on above: Performed By: #### B MP #### [facility] [address] [place] [address] [address] Asia Potter CO2 [Moles/Vol] 28.3 mmol/L Normal 21.0-32.0 [facility] Comment on above: Performed By: #### B MP #### [facility] [address] [place] [address] Dr. Asia Potter Creatinine [Mass/Vol] 1.18 mg/dL Critically high 0.55-1.02 [facility] Comment on above: Performed By: #### B MP #### [facility] [address] [place] [address] Dr. Asia Potter EGFR-AF NEW ZEALANDER 59 mL/min/1.73m2 Critically low >=60 [facility] Comment on above: Performed By: #### B MP #### [facility] [address] [place] [address] Dr. Asia Potter EGFR-NON AF NEW ZEALANDER 48 mL/min/1.73m2 Critically low >=60 [facility] Comment on above: Performed By: #### B MP #### [facility] [address] [address] [address] Asia Potter Glucose [Mass/Vol] 238 mg/dL Critically high 74-[address] [facility] Comment on above: Performed By: #### B MP #### [facility] [address] [address] [address] Asia Potter Potassium [Moles/Vol] 4.8 mmol/L Normal 3.5-5.1 [facility] Comment on above: Performed By: #### B MP #### [facility] [address] [place] [address] Dr. Asia Potter Sodium [Moles/Vol] 138 mmol/L Normal 136-145 [facility] Comment on above: Performed By: #### B MP #### [facility] [address] [place] [address] Dr. Asia Potter Urea nitrogen [Mass/Vol] 30.0 mg/dL Critically high 7.0-18.0 [facility] Comment on above: Performed By: #### B MP #### [facility] [address] [place] [address] Dr. Asia Potter Urea nitrogen/Creatinine [Mass ratio] 25.4 mg/mg Normal [facility] Comment on above: Performed By: #### B MP #### [facility] [address] [place] [address] Dr. Asia Potter TSHon 06-20-2022 TSH 2.802 uIU/mL Normal 0.358-3.740 [facility] Comment on above: Performed By: #### T SH #### [facility] [address] [place] [address] Dr. Asia Potter VIT B12 AND FOLATEon 023 Cobalamin (Vitamin B12) [Mass/Vol] 369.0 pg/mL Normal 193.0-986.0 [facility] Comment on above: Performed By: #### B 12FOL #### [facility] [address] [place] [address] Dr. Asia Potter FOLATE 23.90 ng/mL Normal 8.60-58.90 [facility] Comment on above: Performed By: #### B 12FOL #### [facility] [address] [place] [address] Dr. Asia Potter CBC AUTO DIFFon 01-04-2022 BASO # 0.0 103/ul Normal 0.0-0.1 [facility] Comment on above: Performed By: #### C BC #### [facility] [address] [place] [address] Dr. Asia Potter Basophils/100 WBC (Bld) 0.3 % Normal 0.2-2.0 [facility] Comment on above: Performed By: #### C BC #### [facility] [address] [address] [address] Asia Potter EO # 0.2 103/ul Normal 0.0-0.7 The [facility] Comment on above: Performed By: #### C BC #### [facility] [address] [place] [address] Dr. Asia Potter Eosinophils/100 WBC (Bld) 2.1 % Normal 0.9-7.0 [facility] Comment on above: Performed By: #### C BC #### [facility] [address] [place] [address] Dr. Asia Potter Erythrocyte distribution width (RBC) [Ratio] 13.4 % Normal 11.0-15.0 [facility] Comment on above: Performed By: #### C BC #### [facility] [address] [place] [address] Dr. Asia Potter Hematocrit (Bld) [Volume fraction] 37.2 % Normal 36.0-48.0 [facility] Comment on above: Performed By: #### C BC #### [facility] [address] [place] [address] Dr. Asia Potter Hemoglobin (Bld) [Mass/Vol] 11.6 g/dL Critically low 12.0-16.0 [facility] Comment on above: Performed By: #### C BC #### [facility] [address] [place] [address] Dr. Asia Potter IG # 0.06 10e3/ul Critically high 0.00-0.03 [facility] Comment on above: Performed By: #### C BC #### [facility] [address] [place] [address] Dr. Asia Potter IG % 0.8 % Critically high 0.0-0.5 The [facility] Comment on above: Performed By: #### C BC #### [facility] [address] [place] [address] Dr. Asia Potter LYMPH # 1.7 103/ul Normal 1.2-3.8 The [facility] Comment on above: Performed By: #### C BC #### [facility] [address] [place] [address] Dr. Asia Potter Lymphocytes/100 WBC (Bld) 22.3 % Normal 20.5-60.0 [facility] Comment on above: Performed By: #### C BC #### [facility] [address] [place] [address] Dr. Asia Pottre MANUAL DIFF REQ NO Normal [facility] Comment on above: Performed By: #### C BC #### [facility] [address] [place] [address] Dr. Asia Potter MCH (RBC) [Entitic mass] 29.1 pg Normal 26.7-34.0 The [facility] Comment on above: Performed By: #### C BC #### [facility] [address] [place] [address] Dr. Asia Potter MCHC (RBC) [Mass/Vol] 31.2 g/dL Normal 29.9-35.2 The [facility] Comment on above: Performed By: #### C BC #### [facility] [address] [place] [address] Dr. Asia Potter MCV (RBC) [Entitic vol] 93.5 fL Normal 81.0-99.0 The [facility] Comment on above: Performed By: #### C BC #### [facility] [address] [place] [address] Dr. Asia Potter MONO # 0.4 103/ul Normal 0.3-0.8 The [facility] Comment on above: Performed By: #### C BC #### [facility] [address] [place] [address] Dr. Asia Potter Monocytes/100 WBC (Bld) 5.2 % Normal 1.7-12.0 The [facility] Comment on above: Performed By: #### C BC #### [facility] [address] [place] [address] Dr. Asia Ptoter NEUT # 5.4 103/ul Normal 1.4-6.5 The [facility] Comment on above: Performed By: #### C BC #### [facility] [address] [address] [address] Asia Potter Neutrophils/100 WBC (Bld) 69.3 % Normal 43.0-75.0 [facility] Comment on above: Performed By: #### C BC #### [facility] [address] [address] [address] Asia Potter Platelet mean volume (Bld) [Entitic vol] 9.4 fL Critically low 9.5-13.5 [facility] Comment on above: Performed By: #### C BC #### [facility] [address] [address] [address] Asia Potter PLT 316 103/ul Normal 150-450 [facility] Comment on above: Performed By: #### C BC #### [facility] [address] [address] [address] Asia Potter RBC 3.98 106/ul Critically low 4.20-5.40 [facility] Comment on above: Performed By: #### C BC #### [facility] [address] [address] [address] Asia Potter WBC 7.8 103/ul Normal 4.0-11.0 [facility] Comment on above: Performed By: #### C BC #### [facility] [address] [address] [address] Asia Potter GLYCOHEMOGLOBIN A1Con 2021 ADA RECOMMENDATION SEE BELOW Normal [facility] Comment on above: Result Comment: ADA RECOMMENDED LIMIT 4.0 - 6.0 ADA THERAPEUTIC TARGET < 7.0 ACTION SUGGESTED > 7.0 Performed By: #### A 1C #### [facility] [address] [place] [address] Dr. Asia Potter Glucose [Mass/Vol] 174 mg/dL Normal The [facility] Comment on above: Performed By: #### A 1C #### [facility] [address] [place] [address] Dr. Asia Potter HbA1c (Bld) [Mass fraction] 7.7 % Critically high 4.5-6.2 [facility] Comment on above: Performed By: #### A 1C #### [facility] [address] [address] [address] Asia Potter LIPID PROFILEon 01-04-2022 CHOL-HDL RATIO NORM SEE BELOW Normal [facility] Comment on above: Result Comment: 3.3 - 4.4 LOW RISK 4.4 - 7.1 AVERAGE RISK 7.1 - 11.0 MODERATE RISK >11.0 HIGH RISK Performed By: #### L IPID, TSH, CMP #### [facility] [address] [address] [address] Asia Potter Cholesterol [Mass/Vol] 161 mg/dL Normal <=200 [facility] Comment on above: Performed By: #### L IPID, TSH, CMP #### [facility] [address] [place] [address] Dr. Asia Potter Cholesterol in HDL [Mass/Vol] 37 mg/dL Critically low 40-60 [facility] Comment on above: Performed By: #### L IPID, TSH, CMP #### [facility] [address] [address] [address] Asia Potter Cholesterol in LDL [Mass/Vol] 94.8 mg/dL Normal [facility] Comment on above: Performed By: #### L IPID, TSH, CMP #### [facility] [address] [address] [address] Asia Potter Cholesterol.total/C holesterol in HDL [Mass ratio] 4.4 {ratio} Normal [facility] Comment on above: Performed By: #### L IPID, TSH, CMP #### [facility] [address] [place] [address] Dr. Asia Potter HDL NORMAL > or = 60 mg/dl - LO W CARDIOVASCULAR RISK <40 mg/dl - HIGH CARDIOVASCULAR RISK Normal [facility] Comment on above: Performed By: #### L IPID, TSH, CMP #### [facility] [address] [place] [address] Dr. Asia Potter LDL CALC NORMAL SEE BELOW Normal [facility] Comment on above: Result Comment: <100 mg/dl OPTIMAL 100 - 129 mg/dl NEAR OR ABOVE OPTIMAL 130 - 159 mg/dl BORDERLINE HIGH 160 - 189 mg/dl HIGH >190 mg/dl VERY HIGH Performed By: #### L IPID, TSH, CMP #### [facility] [address] [address] [address] Asia Potter Triglyceride [Mass/Vol] 146 mg/dL Normal <=150 [facility] Comment on above: Performed By: #### L IPID, TSH, CMP #### [facility] [address] [address] [address] Asia Potter VLDL CALC 29.2 mg/dL Normal [facility] Comment on above: Performed By: #### L IPID, TSH, CMP #### [facility] [address] [address] [address] Asia Potter PROF 14(COMP METB)on 022 Albumin [Mass/Vol] 3.7 g/dL Normal 3.4-5.0 [facility] Comment on above: Performed By: #### L IPID, TSH, CMP #### [facility] [address] [place] [address] Dr. Asia Potter Albumin/Globulin [Mass ratio] 0.9 {ratio} Normal [facility] Comment on above: Performed By: #### L IPID, TSH, CMP #### [facility] [address] [place] [address] Dr. Asia Potter ALP [Catalytic activity/Vol] 90 U/L Normal 46-116 [facility] Comment on above: Performed By: #### L IPID, TSH, CMP #### [facility] [address] [place] [address] Dr. Asia Potter ALT [Catalytic activity/Vol] 53 U/L Normal 14-59 The [facility] Comment on above: Performed By: #### L IPID, TSH, CMP #### [facility] [address] [place] [address] Dr. Asia Potter Anion gap [Moles/Vol] 11.8 mmol/L Normal [facility] Comment on above: Performed By: #### L IPID, TSH, CMP #### [facility] [address] [place] [address] Dr. Asia Potter AST [Catalytic activity/Vol] 42 U/L Critically high 15-37 The [facility] Comment on above: Performed By: #### L IPID, TSH, CMP #### [facility] [address] [address] [address] Asia Potter Bilirubin [Mass/Vol] 0.2 mg/dL Normal 0.2-1.0 [facility] Comment on above: Performed By: #### L IPID, TSH, CMP #### [facility] [address] [address] [address] Asia Potter Calcium [Mass/Vol] 9.3 mg/dL Normal 8.5-10.1 The [facility] Comment on above: Performed By: #### L IPID, TSH, CMP #### [facility] [address] [place] [address] Dr. Asia Potter Chloride [Moles/Vol] 100 mmol/L Normal 98-107 The [facility] Comment on above: Performed By: #### L IPID, TSH, CMP #### [facility] [address] [place] [address] Dr. Asia Potter CO2 [Moles/Vol] 27.5 mmol/L Normal 21.0-32.0 [facility] Comment on above: Performed By: #### L IPID, TSH, CMP #### [facility] [address] [place] [address] Dr. Asia Potter Creatinine [Mass/Vol] 0.77 mg/dL Normal 0.55-1.02 [facility] Comment on above: Performed By: #### L IPID, TSH, CMP #### [facility] [address] [place] [address] Dr. Asia Potter EGFR-AF NEW ZEALANDER >60 Normal >=60 [facility] Comment on above: Performed By: #### L IPID, TSH, CMP #### [facility] [address] [place] [address] Dr. Asia Potter EGFR-NON AF NEW ZEALANDER >60 Normal >=60 [facility] Comment on above: Performed By: #### L IPID, TSH, CMP #### [facility] [address] [address] [address] Asia Potter Globulin (S) [Mass/Vol] 4.1 g/dL Normal [facility] Comment on above: Performed By: #### L IPID, TSH, CMP #### [facility] [address] [address] [address] Asia Potter Glucose [Mass/Vol] 168 mg/dL Critically high 74-106 T [facility] Comment on above: Performed By: #### L IPID, TSH, CMP #### [facility] [address] [address] [address] Asia Potter Potassium [Moles/Vol] 4.3 mmol/L Normal 3.5-5.1 [facility] Comment on above: Performed By: #### L IPID, TSH, CMP #### [facility] [address] [place] [address] Dr. Asia Potter Protein [Mass/Vol] 7.8 g/dL Normal 6.4-8.2 [facility] Comment on above: Performed By: #### L IPID, TSH, CMP #### [facility] [address] [address] [address] Asia Potter Sodium [Moles/Vol] 135 mmol/L Critically low 136-145 [facility] Comment on above: Performed By: #### L IPID, TSH, CMP #### [facility] [address] [address] [address] Asia Potter Urea nitrogen [Mass/Vol] 17.0 mg/dL Normal 7.0-18.0 [facility] Comment on above: Performed By: #### L IPID, TSH, CMP #### [facility] [address] [address] [address] Asia Potter Urea nitrogen/Creatinine [Mass ratio] 22.1 mg/mg Normal [facility] Comment on above: Performed By: #### L IPID, TSH, CMP #### [facility] [address] [address] [address] Asia Potter TSHon 01-04-2022 TSH 2.411 uIU/mL Normal 0.358-3.740 [facility] Comment on above: Performed By: #### L IPID, TSH, CMP #### [facility] [address] [place], [place] [address] Dr. Asia Potter CBC W/DIFFon 06-06-2018 ABS BASOPHILS 0.0 10*3/uL Normal 0.0-0.2 The [facility] Comment on above: Performed By: #### 5 0103, [id number] #### [facility] [address] [place] [address], [facility] ABS IMM GRANS 0.0 10*3/uL Normal 0.0-0.2 [facility] Comment on above: Performed By: #### 5 010, 62496 #### [facility] [address] [place] [address], [facility] ABS NEUTROPHILS 5.1 10*3/uL Normal 1.6-7.6 [facility] Comment on above: Performed By: #### 5 010, 98761 #### [facility] [address] [place] [address], [facility] Basophils/100 WBC (Bld) 0.3 % Normal 0.0-1.0 [facility] Comment on above: Performed By: #### 5 0103, 55058 #### [facility] [address] [place] [address], [facility] Eosinophils (Bld) [#/Vol] 0.2 10*3/uL Normal 0.0-0.5 [facility] Comment on above: Performed By: #### 5 0103, [id number] #### [facility] [address] [place] [address], [facility] Eosinophils/100 WBC (Bld) 3.4 % Normal 0.0-6.0 [facility] Comment on above: Performed By: #### 5 010, 44504 #### [facility] [address] Erythrocyte distribution width (RBC) [Ratio] 13.2 % Normal 11.5-15.0 [facility] Comment on above: Performed By: #### 5 102, 27444 #### [facility] [address] Hematocrit (Bld) [Volume fraction] 36.3 % Normal 36.0-45.0 [facility] Comment on above: Performed By: #### 5 102, 15668 #### [facility] [address] Hemoglobin (Bld) [Mass/Vol] 11.6 g/dL Low 12.0-15.0 [facility] Comment on above: Performed By: #### 5 102, 57327 #### [facility] [address] IMMATURE GRANS 0.6 % Normal 0.0-1.0 [facility] Comment on above: Performed By: #### 102, [id number] #### [facility] [address] [facility] Lymphocytes (Bld) [#/Vol] 1.0 10*3/uL Low 1.2-4.0 [facility] Comment on above: Performed By: #### 5 102, 00257 #### [facility] [address] Lymphocytes/100 WBC (Bld) 15.3 % Low 20.0-45.0 [facility] Comment on above: Performed By: #### 5 102, 32490 #### [facility] [address] [place] [address], [facility] MCH (RBC) [Entitic mass] 29.1 pg Normal 27.0-33.0 [facility] Comment on above: Performed By: #### 102, 37995 #### [facility] [address] MCHC (RBC) [Mass/Vol] 32.0 g/dL Normal 32.0-35.0 [facility] Comment on above: Performed By: #### 5 102, 72463 #### [facility] [address] [facility]. [address] MCV (RBC) [Entitic vol] 91.0 fL Normal 82.0-98.0 [facility] Comment on above: Performed By: #### 5 102, 87485 #### [facility] [address] Monocytes (Bld) [#/Vol] 0.4 10*3/uL Normal 0.1-1.0 [facility] Comment on above: Performed By: #### 5 102, 41215 #### [facility] [address] [facility]. [address] MONOS 5.6 % Normal 5.0-12.0 [facility] Comment on above: Performed By: #### 5 102, 14318 #### [facility] [address] Neutrophils/100 WBC (Bld) 74.8 % High 40.0-72.0 [facility] Comment on above: Performed By: #### 5 102, 22439 #### [facility] [address] Nucleated RBC/100 WBC (Bld) [Ratio] 0 % Normal 0-0 [facility] Comment on above: Performed By: #### 5 102, 00162 #### [facility] [address] [place] [address], [facility] PLAT CNT 291 10*3/uL Normal 150-400 [facility] Comment on above: Performed By: #### 5 102, 07136 #### [facility] [address] RBC (Bld) [#/Vol] 3.99 10*6/uL Normal 3.80-5.00 [facility] Comment on above: Performed By: #### 5 0103, 60139 #### [facility] [address] [facility]. [address] WBC (Bld) [#/Vol] 6.75 10*3/uL Normal 4.00-10.60 [facility] Comment on above: Performed By: #### 5 0103, 02384 #### [facility] [address] COMP METABOLIC PANELon 06-06 Albumin [Mass/Vol] 4.0 g/dL Normal 3.5-5.7 [facility] Comment on above: Performed By: #### 0 0121, 54466 #### [facility] [address] ALKALINE PHOSPH 79 IU/L Normal 34-104 [facility] Comment on above: Performed By: #### 0 0121, 36321 #### [facility] [address] ALT [Catalytic activity/Vol] 21 U/L Normal 7-52 [facility] Comment on above: Performed By: #### 0 0121, 54476 #### [facility] [address] [facility]. [address] AST [Catalytic activity/Vol] 19 U/L Normal 13-39 [facility] Comment on above: Performed By: #### 0 0121, 69257 #### [facility] [address] [facility]. [address] Bilirubin [Mass/Vol] 0.3 mg/dL Normal 0.3-1.0 [facility] Comment on above: Performed By: #### 0 0121, 91817 #### [facility] [address] [place] [address], [place] Calcium [Mass/Vol] 9.2 mg/dL Normal 8.6-10.3 [facility] Comment on above: Performed By: #### 0 0121, 24981 #### [facility] [address] [place] [address], [place] Chloride [Moles/Vol] 100 mmol/L Normal 98-107 [facility] Comment on above: Performed By: #### 0 0121, 61774 #### [facility] [address] [place] [address], [place] CO2 [Moles/Vol] 30 mmol/L Normal 21-31 [facility] Comment on above: Performed By: #### 0 0121, 49097 #### [facility] [address] [place] [address], [place] Creatinine [Mass/Vol] 0.53 mg/dL Low 0.60-1.20 [facility] Comment on above: Performed By: #### 0 0121, 80204 #### [facility] [address] [place] [address], [place] GFR/1.73 sq M predicted among blacks MDRD (S/P/Bld) [Vol rate/Area] mL/min/{1.73_m2} Normal >60 [facility] Comment on above: Performed By: #### 0 0121, 07883 #### [facility] [address] [place] [address], [place] GFR/1.73 sq M predicted among non-blacks MDRD (S/P/Bld) [Vol rate/Area] mL/min/{1.73_m2} Normal >60 [facility] Comment on above: Performed By: #### 0 0121, 97997 #### [facility] [address] [place] [address], [place] Glucose [Mass/Vol] 156 mg/dL High 70-100 [facility] Comment on above: Performed By: #### 0 0121, 42812 #### [facility] [address] [place] [address], [facility] Potassium [Moles/Vol] 3.8 mmol/L Normal 3.5-5.1 [facility] Comment on above: Performed By: #### 0 0121, 62003 #### [facility] [address] [place] [address], [facility] Protein [Mass/Vol] 7.4 g/dL Normal 6.0-8.3 [facility] Comment on above: Performed By: #### 0 0121, 57839 #### [facility] [address] Sodium [Moles/Vol] 137 mmol/L Normal 136-145 [facility] Comment on above: Performed By: #### 0 0121, [id number] #### [facility] [address] Urea nitrogen [Mass/Vol] 7 mg/dL Normal 7-25 [facility] Comment on above: Performed By: #### 0 0121, [id number] #### [facility] [address] CYCLIC CITRULLINATED PEPTIDE AB [id number] 06-06-2018 CYCLIC CIT PEP 8 Units Normal 0-19 [facility] Comment on above: Result Comment: INTE RPRETIVE INFORMATION: Cyclic Citrullinated Peptide Antibody, IgG 19 Units or less ................... Negative 20-39 Units ........................ Weak Positive 40-59 Units ........................ Moderate Positive 60 Units or greater ................ Strong Positive Anti-cyclic citrullinated peptide (anti-CCP), IgG antibodies are present in about 69-83 percent of patients with rheumatoid arthritis (RA) and have specificities of 93-95 percent. These autoantibodies may be present in the preclinical phase of disease, are associated with future RA development, and may predict radiographic joint destruction. Patients with weak positive results should be monitored and testing repeated. Performed by [facility], [address] [place] [id number] [email or web address], Inocente Gregory MD - Lab. Director MISCELLANEOUS PATHon 019 RESULT Results to be mailed directly to physician's office by reference lab. Normal [facility] Comment on above: Order Comment: RA DI SEASE ACTIVITY WITH SCORING-VECTRA DA BOX Result Comment: [employer] RA DA [employer] [address] [place] [address] [id number] No result expected. For billing and tracking purposes only. Performed By: #### [id number] #### [facility] [address] RHEUMATOID FACTOR SERUMon RA <20 Normal 0-20 [facility] Comment on above: Performed By: #### 1 0204 #### [facility] 3000 [facility]. [address] SEDIMENTATION RATEon 019 SED RATE 40 mm/hr High 0-20 [facility] Comment on above: Performed By: #### 5 0103, [id number] #### [facility] [address] [facility] [address] TSH3 WITH REFLEXon 9 Free T4 [Mass/Vol] 0.71 ng/dL Normal 0.71-1.85 [facility] Comment on above: Result Comment: This result added by IF on 06/06/2018 15:57. Performed By: #### 0 0121, [id number] #### [facility] [address] TSH 3RD GENERATION 1.27 uIU/mL Normal 0.34-5.60 [facility] Comment on above: Performed By: #### 0 0121, [id number] #### [facility] [address] [place] [address], [facility] Encounters Encounter Date Encounter Type Care Provider Facility Start: 03-27-2023 End: 03-27-2023 ambulatory PAPITO STEWARD [facility] Start: 11-21-2022 End: 11-21-2022 ambulatory PAPITO STEWARD [facility] Start: 06-29-2022 ambulatory PAPITO STEWARD [facility] Start: 06-29-2022 End: 06-29-2022 [facility] Start: 06-20-2022 End: 06-21-2022 ambulatory [facility] Facility:[facility] Start: 01-04-2022 End: 01-05-[address] DOCTOR SPARKS Facility:[facility] Start: 10-08-[address] DOCTOR SPARKS Facility :[facility] Procedures Date Procedure Procedure Detail Performing Clinician Start: 06-29-2022 Follow-up visit Follow-up PAPITO STEWARD Payers Date Payer Category Payer Medicaid [id number] 1970 Unknown [id number] [id number] [id number] 1970 Unknown [id number] [id number] [id number] 1971 Unknown [id number] [id number] [id number] 1971 Unknown [id number] [id number] [id number] 1958 Self-pay 1958 Unknown [id number] Progress note 03-27-2023 Note Date & Type Note Facility 03-27-2023 Note Prior Authorization for Enbrel has been approved 03/28/2023-06/25/2023. Case ID/Authorization Number: [id number] Going through for a $0 copay, I called the patient and she would like us to mail that to her. Lexi Jacques [facility] 03/29/23 10:49 AM [facility] Progress note 03-27-2023 Note Date & Type Note Facility 03-27-2023 Note Specialty Pharmacy N ote: Enbrel Mini Cartridge Supervising Physician & Clinic:?? Dr. Papito Steward, [facility] Rheumatology Marisol Ramirez is a 52 y.o. year old female patient with PMH of: rheumatoid arthritis PharmD consulted for evaluation of Enbrel for treatment of rheumatoid arthritis (Diagnosis Code: M06.9). ?? Prescribed Dosing: Enbrel min cartridge 50 mg/mL, inject 50 mg under the skin once weekly Previous medications tried: Celecoxib (05/2013-current) Rinvoq ER 15 mg (01/2020-current) Prednisone (09/2013-current) Methotrexate (11/2013-04/2020) Xeljanz (05/2016-12/2019) Baclofen (03/2015-06/2018) Humira (06/2014-11/2014) Remicade (11/20140117-4747) Actemra (unknown dates) No pertinent drug interactions were noted. No renal or hepatic dose adjustments necessary. Vitals: Ht Readings from Last 1 Encounters: 03/27/23 1.524 m (5') Wt Readings from Last 1 Encounters: 03/27/23 126 kg (277 lb) BMI Readings from Last 1 Encounters: 03/27/23 54.10 kg/m??? BP Readings from Last 1 Encounters: 03/27/23 161/90 Pulse Readings from Last 1 Encounters: 03/27/23 75 Pertinent labs:?? CMP: Lab Results Component Value Date GLUCOSE 191 (H) 11/21/2022 CALCIUM 9.0 11/21/2022 NA 136 11/21/2022 K 3.9 11/21/2022 CO2 26 11/21/2022 CL 100 11/21/2022 BUN 12 11/21/2022 CREATININE 0.74 11/21/2022 CBC: Lab Results Component Value Date WBC 5.71 11/21/2022 HGB 11.2 (L) 11/21/2022 HCT 36.7 11/21/2022 MCV 95.3 11/21/2022 PLT 367 11/21/2022 TB: in process (03/27/2023), (negative 11/21/2022) Hep B: Lab Results Component Value Date HEPBCAB Nonreactive 11/21/2022 Evaluation: Based on pending labs within normal limits and trial and failure of above medications, patient is an appropriate candidate for this medication.? Follow-up: Called and spoke with patient to let her know that we received prescription and it requires prior authorization. Labs were drawn today. Patient did receive device in office today and Dr. Steward reviewed how to use. Will call with any further updates. Submitted PA using labs from 11/2022. Awaiting determination.? Martha Wilson, MioD, [facility] Outpatient Clinical Pharmacist [facility] [id number] 03/27/23 4:04 PM [facility] Progress note 03-27-2023 Note Date & Type Note Facility 03-27-2023 Note Attestation signed by Papito Steward MD at 03/27/2023 9:04 PM As the teaching physician, I have personally performed or re-performed the history of present illness, physical exam and medical decision making activities of the encounter and verified the medical student's documentation. I made pertinent changes as necessary to ensure accurate documentation. Subjective Patient ID: Marisol Ramirez is a 52 y.o. female who presents for Follow-up. Marisol Torres is a 52 year old female with seronegative RA and Fibromyalgia. Marisol reports her symptoms have remained the same since the last visit without improvement or worsening pain. She reports pain at 6/10. Pain is in her shoulders, neck, lower back, hands, feet, and toes. She continues on daily Rinvoq for RA management. Review of Systems Respiratory: Negative for shortness of breath. Musculoskeletal: Positive for arthralgias, back pain, joint swelling and neck pain. Objective Visit Vitals BP 161/90 (BP Location: Left wrist, Patient Position: Sitting) Pulse 75 Physical Exam Constitutional: Appearance: Normal appearance. Musculoskeletal: General: Swelling present. Comments: Bilateral hand swelling, nodes present in right hand. Neurological: Mental Status: She is alert. Assessment/Plan 1. Seronegative RA, not fully controlled - Stop Rinvoq 15 mg 1 daily. - Start Enbrel weekly injections. - Ultrasound performed today on 03/27/23 on right and left hands with notable inflammation on left hand consistent with uncontrolled RA. 2. Secondary fibromyalgia, stable - Continue Neurontin to 800 mg BID 3. Rinvoq use. - Last labs 11/21/22 not concerning for elevated HDL associated with Rinvoq use. - Stop Rinvoq. Labs today 03/27/23: CBC, CMP, Hepatitis B and C, TB, and ESR. Return to clinic in 3 months. Patient seen by Lakeisha Dhaliwal, MS-[address] Ste[address]. [facility] Progress note 03-27-2023 Note Date & Type Note Facility 03-27-2023 Note -------- Attestation signed by Papito Steward MD at 03/27/2023 9:04 PM By using the attestations below, the signing clinician agrees that I have read and verify that the documentation has been personally reviewed by me and ensure that the documentation accurately reflects the encounter. GC: I personally saw this patient on the day of the encounter, performed the pemberton portion(s) of the service and participated in the management and confirm the resident's documentation. Please note there may be an additional personal documentation from me. I was present and supervised the procedure -------- [place] Protocol Documentation for Invasive Procedures List all members of procedural/operative team: Kenneth Dan MD, Papito Steward MD Verification of correct patient using two patient identifiers. Verification of correct imaging studies and implant. Verification of correct equipment including emergency equipment. Site marked with marker???s initials. Verification of time-out process. Consent signed. LOCATION: Wrists, right hand extensors, right 3rd MCP CLINICAL INDICATION: Pain FINDINGS: * Joint Space: Hypoechoic synovium enlarged at wrists, bilaterally, with inflammatory doppler mildly positive. * Soft tissue structure around joint: Preserved without inflammatory doppler positive. * Abnormalities noted: Some erosive signs at right 3rd MCP, with enlargement of synovium and inflammatory doppler mildly positive at both wrists. IMPRESSION: Mild inflammation and increased synovium at both wrists, with some erosions at right 3rd MCP. (Must include permanently recorded images with 2 patient identifiers) Media Information Document Information [facility] Clinical: Clinical Unknown Left wrist 03/27/2023 11:37 Attached To: Follow-Up on 03/27/23 with Papito Steward MD Source Information Kenneth Dan MD [facility] Media Information Document Information [facility] Clinical: Clinical Unknown Right 3rd mcp 03/27/2023 11:37 Attached To: Follow-Up on 03/27/23 with Papito Steward MD Source Information Kenneth Dan MD [facility] Media Information Document Information [facility] Clinical: Clinical Unknown Right extensors 03/27/2023 11:36 Attached To: Follow-Up on 03/27/23 with Papito Steward MD Source Information Kenneth Dan MD [facility] Media Information Document Information [facility] Clinical: Clinical Unknown Right wrist 03/27/2023 11:36 Attached To: Follow-Up on 03/27/23 with Papito Steward MD Source Information Kenneth Dan MD [facility] Media Information Document Information [facility] Clinical: Clinical Unknown Right wrist 03/27/2023 11:36 Attached To: Follow-Up on 03/27/23 with Papito Steward MD Source Information Kenneth Dan MD [facility] Progress note 11-21-2022 Note Date & Type Note Facility 11-21-2022 Note -------- Attestation signed by Papito Steward MD at 11/21/2022 9:01 PM As the teaching physician, I have personally performed or re-performed the history of present illness, physical exam and medical decision making activities of the encounter and verified the medical student's documentation. I made pertinent changes as necessary to ensure accurate documentation. -------- Subjective Patient ID: Marisol Ramirez is a 52 y.o. female who presents for No chief complaint on file.. GUNJAN Torres is a 52 year old female with past medical history of seronegative RA (VECTRA score- 53) and Fibromyalgia. She states that she recently had the flu and was able to obtain OTC medications to help her through that illness. 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 She states that she does not have increased joint pain and thus is well controlled on Rinvoq. She reports occasional SOB, dizziness and has daily morning joint stiffness consistent with her RA Review of Systems Constitutional: Positive for activity change. Negative for appetite change, fatigue and fever. Weight loss HENT: Negative. Eyes: Negative. Respiratory: Positive for shortness of breath. Cardiovascular: Negative. Genitourinary: Negative. Neurological: Positive for dizziness. Objective There were no vitals taken for this visit. Physical Exam Constitutional: Appearance: Normal appearance. HENT: Head: Normocephalic and atraumatic. Eyes: Pupils: Pupils are equal, round, and reactive to light. Cardiovascular: Rate and Rhythm: Normal rate and regular rhythm. Pulses: Normal pulses. Heart sounds: Normal heart sounds. Pulmonary: Effort: Pulmonary effort is normal. Breath sounds: Normal breath sounds. Musculoskeletal: General: No deformity. Right lower leg: No edema. Left lower leg: No edema. Comments: Left hand swelling Skin: General: Skin is warm. Neurological: General: No focal deficit present. Mental Status: She is alert. Psychiatric: Mood and Affect: Mood normal. Behavior: Behavior normal. Assessment/Plan 1. Seronegative RA. She has active moderate disease,stable - Patient's pain remain at baseline on Rlsyks31 mg extended release - Continue Rinvoq 15 mg 1 daily - Ordered labs to check lipid panel while on Rinvoq - Patient notes no change in the steroid regimen every other day. Instructed her to stop the prednisone 2. Secondary fibromyalgia, stable - Continue Neurontin to 800 mg BID - She failed treatment with Lyrica 3. Rinvoq use. no history of diverticulosis, she is aware of the risk of bowel perforation. - Labs ESR, CRP, CBC, CMP. - Labs in June showed elevated total VLDL-C (52) and triglycerides (258) This patient was seen and note reviewed by PAPITO Olvera Note Written by: Cadence Martinez, MS4 [facility] Progress note 06-29-2022 Note Date & Type Note Facility 06-29-2022 Note -------- Attestation signed by Papito Steward MD at 06/29/2022 1:42 PM By using the attestations below, the signing clinician agrees that I have read and verify that the documentation has been personally reviewed by me and ensure that the documentation accurately reflects the encounter. GC: I personally saw this patient on the day of the encounter, performed the pemberton portion(s) of the service and participated in the management and confirm the resident's documentation. Please note there may be an additional personal documentation from me. -------- Subjective Patient ID: Marisol Ramirez is a 51 y.o. female who presents for Pain Patient presents for routine follow up regarding her RA. No acute complaints at this time. She reports that she still has her chronic RA pain in all her joints and it is worst in her hands. Her hand stiffness has been progressively getting a little worse and is worse in the mornings with mild improvement in the afternoon. Otherwise no further complaints. Remains complaint with meds wit no adverse effects. Pain is 6/10 constantly at baseline. Review of Systems Constitutional: Positive for fatigue. Negative for activity change, appetite change, chills and fever. HENT: Negative for congestion and ear pain. Eyes: Negative for pain and discharge. Respiratory: Negative for cough, shortness of breath and wheezing. Cardiovascular: Negative for chest pain, palpitations and leg swelling. Gastrointestinal: Negative for abdominal distention and abdominal pain. Endocrine: Negative for cold intolerance and polyuria. Genitourinary: Negative for difficulty urinating, dysuria, frequency and hematuria. Musculoskeletal: Positive for arthralgias and back pain. Negative for gait problem and joint swelling. Skin: Negative for rash and wound. Neurological: Negative for dizziness, numbness and headaches. Hematological: Negative for adenopathy. Psychiatric/Behavioral: Negative for agitation, behavioral problems and confusion. Objective Visit Vitals BP 126/82 (BP Location: Left wrist, Patient Position: Sitting) Pulse 81 Physical Exam Vitals and nursing note reviewed. Constitutional: General: She is not in acute distress. Appearance: Normal appearance. She is obese. She is not ill-appearing, toxic-appearing or diaphoretic. HENT: Head: Normocephalic and atraumatic. Right Ear: External ear normal. Left Ear: External ear normal. Nose: Nose normal. Mouth/Throat: Mouth: Mucous membranes are moist. Pharynx: Oropharynx is clear. Eyes: General: No scleral icterus. Right eye: No discharge. Left eye: No discharge. Extraocular Movements: Extraocular movements intact. Conjunctiva/sclera: Conjunctivae normal. Pupils: Pupils are equal, round, and reactive to light. Cardiovascular: Rate and Rhythm: Normal rate and regular rhythm. Heart sounds: No murmur heard. No friction rub. No gallop. Pulmonary: Effort: No respiratory distress. Breath sounds: No stridor. No wheezing, rhonchi or rales. Chest: Chest wall: No tenderness. Abdominal: General: Abdomen is flat. There is no distension. Palpations: Abdomen is soft. There is no mass. Tenderness: There is no abdominal tenderness. Musculoskeletal: General: Tenderness present. No swelling or deformity. Normal range of motion. Cervical back: Normal range of motion and neck supple. No tenderness. Right lower leg: No edema. Left lower leg: No edema. Comments: Mild tenderness to palpation of MCP, PIP. No swelling appreciated. No rashes noted. Skin: General: Skin is warm. Coloration: Skin is not jaundiced. Findings: No bruising, erythema, lesion or rash. Neurological: General: No focal deficit present. Mental Status: She is alert and oriented to person, place, and time. Motor: No weakness. Psychiatric: Mood and Affect: Mood normal. Behavior: Behavior normal. There is currently no information documented on the homunculus. Go to the Rheumatology activity and complete the homunculus joint exam. Assessment/Plan 1. 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 - Patient remains in 6/10 pain with no acute changes or concerns. - Cont rinvoq daily - Wean prednisone to 2.5 mg every other day. Discussed with patient that if she notices no change in the days that she does not take prednisone, we will stop the prednisone going forward. If there is significant change in the days she does not take prednisone, we will continue for a little longer before weaning. - VECTRA -DA with high disease activity (53). Then, better after using xeljanz. - She failed treatment with Xeljanz, Humira and Remicade, she developed an infection after actemra 2 infusions. Has failed methotrexate 15 mg weekly. Obtain labs prior to next visit. 2. Secondary fibromyalgia. (more content not included)... [facility] Progress note 06-29-2022 Note Date & Type Note Facility 06-29-2022 Note Positive PHQ. Pt is receiving care for this. Pt is taking Austedo 12mg 1 Tab PO Twice Daily. starting 06/30/22 [facility] Summary Purpose Family History No Family History Records FoundNo Family History Records FoundNo Family History Records Found Advance Directives No Advanced Directives Records FoundNo Advanced Directives Records FoundNo Advanced Directives Records Found Additional Source Comments INFORMATION SOURCE (unrecogn ized section and content) DATE CREATED AUTHOR 05/29/2019 [facility] DATE CREATED AUTHOR AUTHOR'S ORGANIZ ATION 06/27/2022 [facility] DATE CREATED AUTHOR AUTHOR'S ORGANIZ ATION 03/29/2023 [facility] FOR RECORDS PERTAINING TO PATIENTS WHO ARE OR HAVE BEEN ENROLLED IN A CHEMICAL DEPENDENCY/SUBSTANCEABUSE PROGRAM, SOME INFORMATION MAY BE OMITTED. This clinical summary was aggregated from multiple sources. Caution should be exercised in using it in the provision of clinical care. This summary normalizes information from multiple sources, and as a consequence, information in this document may materially change the coding, format and clinical context of patient data. In addition, data may be omitted in some cases. CLINICAL DECISIONS SHOULD BE BASED ON THE PRIMARY CLINICAL RECORDS. [employer] [facility]. provides no warranty or guarantee of the accuracy or completeness of information in this document.
== END 2023-06-06 11:41 | disposition home or self-care (01) ==
LOC: LAB 11:40
PROVIDERS: PCP Family Medicine; Visit Provider Nurse Practitioner
DX: Z12.4 Encounter for screening for malignant neoplasm of cervix (principal)
CPT/HCPCS: 36415; 87624; 88175

== ENCOUNTER 2023-07-17 11:57 | Outpatient (OUT) | payer OTHER, SELFPAY ==
--- OUTSIDE RECORDS SUMMARY | 2023-07-17 12:08 | XMS_ITS | CCD ---
Author Organization [facility] Care Team Providers Care Appointment Clerk Name Role Phone [facility] Admitting Unava ilable [facility] Attending Unava ilable [facility] Primary Care Unava ilable [facility] Consulting Unava ilable MISC, DR GOODE Admitting Unavailable MISC, DR GOODE Attending Unavailable MISC, DR GOODE Primary Care Unavailable MISC, DR GOODE Consulting Unavailable WINDNAGEL, DR LASHAUN Joaquin Admitting Unavaila ble WINDNAGEL, DR LASHAUN Joaquin Attending Unavaila ble [facility], [facility] Primary Care Unava ilable WINDNAGEL, DR LASHAUN Joaquin Consulting Unavaila ble MISC, DR GOODE Admitting Unavailable MISC, DR GOODE Attending Unavailable MISC, DR GOODE Primary Care Unavailable ALTOROKEBENEZERZAAsia I Attending Unavailable ALTOROK NEZAM I Attending Unavailable ALTOROK NEZAM I Attending Unavailable Allergies Allergy Classification Reported Allergen(s) Allergy Type Date of Onset Reaction(s) Facility (2 sources) Acetaminophen / HYDROcodone Drug Allergy 3 [facility] Repository (2 sources) Acetaminophen / oxyCODONE Drug Allergy 3 [facility] Repository (2 sources) Acetaminophen / oxyCODONE Drug Allergy 3 [facility] Repository (1 source) Acetaminophen / HYDROcodone; Translations: [HYDROCODONE-ACET AMINOPHEN] Drug Allergy 4 [facility] Repository (1 source) Acetaminophen / oxyCODONE; Translations: [OXYCODONE-ACETAM INOPHEN] Drug Allergy 4 [facility] Repository (1 source) diazePAM; Translations: [DIAZEPAM] Drug Allergy 2 [facility] Repository (1 source) HYDROcodone; Translations: [HYDROCODONE] Drug Allergy 2 [facility] Repository (1 source) oxyCODONE; Translations: [OXYCODONE] Drug Allergy 2 [facility] Repository (1 source) BEE VENOM PROTEIN (HONEY BEE); Translations: [BEE VENOM PROTEIN (HONEY BEE)] Propensity to adverse reactions to drug (disorder) 1 [facility] Repository (1 source) ADHESIVE TAPE-SILICONES; Translations: [ADHESIVE TAPE-SILICONES] Propensity to adverse reactions to drug (disorder) 1 [facility] Repository Problems Active Problems Problem Classification Problem Date Documented Da te Episodic/Chronic Disorders of lipid metabolism (3 sources) Pure hypercholesterolem ia, unspecified; Translations: [Other hyperlipidemia] Onset: 01-08-2022 Chronic Essential hypertension (1 source) Essential (primary) hypertension; Translations: [ESSENTIAL PRIMARY HYPERTENSION] Onset: 06-22-2022 Chronic Other nervous system disorders (4 sources) Tremor, unspecified; Translations: [TREMOR UNSPECIFIED] Onset: 06-20-2022 Episodic Other nervous system disorders (1 source) Anesthesia of skin; Translations: [ANESTHESIA OF SKIN] Onset: 06-22-2022 Episodic Rheumatoid arthritis and related disease (2 sources) Rheumatoid arthritis without rheumatoid factor, multiple sites; Translations: [Rheumatoid arthritis without rheumatoid factor, multiple sites] Onset: 11-21-2022 Chronic Past or Other Problems Problem Classification Problem Date Documented Da te Episodic/Chronic Diabetes mellitus without complication (4 sources) Impaired fasting glucose; Translations: [IMPAIRED FASTING GLUCOSE] Onset: 01-04-2022 Episodic Immunizations and screening for infectious disease (2 sources) Encounter for screening for other viral diseases; Translations: [Encounter for screening for other viral diseases] Onset: 11-21-2022 Episodic Other aftercare (2 sources) Other chcf (current) drug therapy; Translations: [Other watermaster (current) drug therapy] Onset: 11-21-2022 Episodic Other connective tissue disease (2 sources) Fibromyalgia; Translations: [Fibromyalgia] Onset: 02-09-2022 Episodic Results Test Name Value Interpretation Reference Range Facil ity Orders Onlyon 06-28-2023 Orders Only [id number] Asia Ramirez 1970 F Date Provider Department Center 06/28/2023 [facility] RHEUM Marisol Heal No family history on file Normal [facility] Orders Onlyon 06-27-2023 Orders Only [id number] Asia Ramirez ay E 1970 F Date Provider Department Center 06/27/2023 KENNETH BURNS [facility] RHEUM Marisol Heal No family history on file Normal [facility] Documentationon 06-26-2023 Documentation [id number] Asia Ramirez ay E 1970 Date Provider Department Center 06/26/2023 KATERINA PAPITO Su [facility] RHEUM Marisol Heal No family history on file Reason for Visit and Comments: Specialty Pharmacy Note Rinvoq [Other] Normal [facility] Follow-Upon 06-26-2023 Follow-Up [id number] Asia Ramirez jud E 1970 Date Provider Department [place] 06/26/2023 JOSE LUISSANTHOSH EBENEZERLEVARAsia Su [facility] RHEUM Marisol Heal No family history on file Level of Service:[id number] ME OFFICE/OUTPATIENT ESTABLISHED MOD MDM 30 MIN () Reason for Visit and Comments: Follow-up [[id number]] - 3 mth follow up Normal [facility] CBC WITH AUTO DIFFERENTIALon 03-27-2023 Basophils (Bld) [#/Vol] 0.03 10*3/uL Normal 0.00-0.20 [facility] Comment on above: Performed By: #### L [id number] #### [facility] ([facility]) [address] [place] [address] Basophils/100 WBC (Bld) 0.4 % Normal 0.0-1.0 [facility] Comment on above: Performed By: #### L [id number] #### [facility] ([facility]) [address] [place] [address] Eosinophils (Bld) [#/Vol] 0.11 10*3/uL Normal 0.00-0.50 [facility] Comment on above: Performed By: #### L [id number] #### [facility] ([facility]) [address] [place] [address] Eosinophils/100 WBC (Bld) 1.6 % Normal 0.0-6.0 [facility] Comment on above: Performed By: #### L [id number] #### [facility] ([facility]) [address] [place] [address] Erythrocyte distribution width (RBC) [Ratio] 12.5 % Normal 11.5-15.0 [facility] Comment on above: Performed By: #### L [id number] #### [facility] ([facility]) [address] [place] [address] ERYTHROCYTE MEAN CORPUSCULAR HEMOGLOBIN CONCENTRATION (G/DL) BY AUTOMATED 31.0 g/dL Low 32.0-35.0 [facility] Comment on above: Performed By: #### L [id number] #### [facility] ([facility]) [address] [place] [address] Hematocrit (Bld) [Volume fraction] 40.0 % Normal 36.0-48.0 [facility] Comment on above: Performed By: #### L [id number] #### [facility] ([facility]) [address] [place] [address] Hemoglobin (Bld) [Mass/Vol] 12.4 g/dL Normal 12.0-15.0 [facility] Comment on above: Performed By: #### L [id number] #### [facility] ([facility]) [address] [place] [address] Immature granulocytes (Bld) [#/Vol] 0.03 10*3/uL Normal 0.00-0.20 [facility] Comment on above: Performed By: #### L [id number] #### [facility] [address] [place] [address] Immature granulocytes/100 WBC (Bld) 0.4 % Normal 0.0-1.0 [facility] Comment on above: Performed By: #### L [id number] #### [facility] [address] [place] [address] Lymphocytes (Bld) [#/Vol] 1.89 10*3/uL Normal 1.20-4.00 [facility] Comment on above: Performed By: #### L [id number] #### [facility] ([facility] [address] [place] [address] Lymphocytes/100 WBC (Bld) 27.3 % Normal 20.0-45.0 [facility] Comment on above: Performed By: #### L [id number] #### [facility] ([facility]) [address] [place] [address] MCH (RBC) [Entitic mass] 29.2 pg Normal 27.0-33.0 [facility] Comment on above: Performed By: #### L [id number] #### [facility] ([facility]) [address] [place] [address] MCV (RBC) [Entitic vol] 94.3 fL Normal 82.0-98.0 [facility] Comment on above: Performed By: #### L [id number] #### [facility] ([facility] [address] [place] [address] Monocytes (Bld) [#/Vol] 0.36 10*3/uL Normal 0.10-1.00 [facility] Comment on above: Performed By: #### L [id number] #### [facility] ([facility] [address] [place] [address] Monocytes/100 WBC (Bld) 5.2 % Normal 5.0-12.0 [facility] Comment on above: Performed By: #### L [id number] #### [facility] ([facility] [address] [place] [address] Neutrophils (Bld) [#/Vol] 4.51 10*3/uL Normal 1.60-7.60 [facility] Comment on above: Performed By: #### L [id number] #### [facility] ([facility]) [address] [place] [address] Neutrophils/100 WBC (Bld) 65.1 % Normal 40.0-72.0 [facility] Comment on above: Performed By: #### L [id number] #### [facility] ([facility]) [address] [place] [address] NRBC (PER 100 WBCS) BY AUTOMATED COUNT 0.0 % Normal 0 [facility] Comment on above: Performed By: #### L [id number] #### [facility] ([facility]) [address] [place] [address] PLATELETS (10*3/UL) IN BLOOD AUTOMATED COUNT 298 10*3/uL Normal 150-400 [facility] Comment on above: Performed By: #### L [id number] #### [facility] ([facility]) [address] [place] [address] RBC (Bld) [#/Vol] 4.24 10*6/uL Normal 3.80-5.00 [facility] Comment on above: Performed By: #### L [id number] #### [facility] ([facility]) [address] [place] [address] WBC (Bld) [#/Vol] 6.93 10*3/uL Normal 4.00-10.60 [facility] Comment on above: Performed By: #### L [id number] #### [facility] ([facility]) [address] [place] [address] COMPREHENSIVE METABOLIC PANE Edvin 03-27-2023 Albumin [Mass/Vol] 4.4 g/dL Normal 3.5-5.7 [facility] Comment on above: Performed By: #### L [id number] ####[facility] ([facility])[address] [place] [address] ALP [Catalytic activity/Vol] 93 U/L Normal 34-104 [facility] Comment on above: Performed By: #### L [id number] ####[facility] ([facility] [place] [address] ALT [Catalytic activity/Vol] 46 U/L Normal 7-52 [facility] Comment on above: Performed By: #### L [id number] ####[facility] ([facility])[address] [place] [address] Anion gap [Moles/Vol] 13 mmol/L Normal 7-20 [facility] Comment on above: Performed By: #### L [id number] ####[facility] ([facility])[address] [place] [address] AST [Catalytic activity/Vol] 75 U/L High 13-39 [facility] Comment on above: Performed By: #### L [id number] ####[facility] ([facility])[address] [place] [address] Bilirubin [Mass/Vol] 0.3 mg/dL Normal 0.3-1.0 [facility] Comment on above: Performed By: #### L [id number] ####[facility] ([facility])[address] [place] [address] Calcium [Mass/Vol] 9.2 mg/dL Normal 8.6-10.3 [facility] Comment on above: Performed By: #### L [id number] ####[facility] ([facility])[address] [place] [address] Chloride [Moles/Vol] 100 mmol/L Normal 98-107 [facility] Comment on above: Performed By: #### L [id number] ####[facility] ([facility])[address] [place] [address] CO2 [Moles/Vol] 28 mmol/L Normal 21-31 [facility] Comment on above: Performed By: #### L [id number] ####[facility] ([facility])[address] [place] [address] Creatinine [Mass/Vol] 0.79 mg/dL Normal 0.60-1.20 [facility] Comment on above: Performed By: #### L [id number] ####[facility] ([facility])[address] [place] [address] GLOMERULAR FILTRATION RATE ML/MIN/1.73 SQ M.PREDICTED 90.5 mL/min/1.73m*2 Normal >60.0 [facility] Comment on above: Result Comment: [facility]???s estimated glomerular filtration rate (eGFR) will no [...] group of individuals. Performed By: #### L [id number] ####[facility] ([facility])[address] [place] [address] Glucose [Mass/Vol] 140 mg/dL High 70-100 [facility] Comment on above: Performed By: #### L [id number] ####[facility] ([facility])[address] [place] [address] Potassium [Moles/Vol] 4.6 mmol/L Normal 3.5-5.1 [facility] Comment on above: Performed By: #### L [id number] ####[facility] ([facility])[address] [place] [address] Protein [Mass/Vol] 7.9 g/dL Normal 6.0-8.3 [facility] Comment on above: Performed By: #### L [id number] ####[facility] ([facility])[address] [place] [address] Sodium [Moles/Vol] 136 mmol/L Normal 136-145 [facility] Comment on above: Performed By: #### L [id number] ####[facility] ([facility])[address] [place] [address] Urea nitrogen [Mass/Vol] 19 mg/dL Normal 7-25 [facility] Comment on above: Performed By: #### L [id number] ####[facility] ([facility])[address] [place] [address] UREA NITROGEN/CREATININE (MASS RATIO) IN SER/PLAS 24.1 Normal [facility] Comment on above: Performed By: #### L [id number] ####[facility] ([facility])[address] [place] [address] Documentationon 03-27-2023 Documentation [id number] Palmer ay E 1970 F Date Provider Department Center 03/27/2023 1067-MANPREET MARTHA [facility] RHEUM Marisol Heal No family history on file Reason for Visit and Comments: Specialty Pharmacy Note Enbrel [Other] [facility] Follow-Upon 03-27-2023 Follow-Up [id number] Asia Ramirez ay E 1970 F Date Provider Department Center 03/27/2023 215-PAPITO STEWARD I RHC RHEUM Marisol Heal No family history on file Level of Service:69327 ME OFFICE/OUTPATIENT ESTABLISHED MOD MDM 30 MIN () Reason for Visit and Comments: Follow-up [[id number]] [facility] HEPATITIS B CORE ANTIBODY, T OTALon 03-27-2023 HEPATITIS B VIRUS CORE AB (PRESENCE) IN SER/PLAS BY IMM Non-Reactive Normal Nonreactive [facility] Comment on above: Performed By: #### L [id number] #### [facility] ([facility]) [address] [place] [address] HEPATITIS B SURFACE ANTIGENo n 03-27-2023 HEPATITIS B VIRUS SURFACE AG PRESENCE IN SERUM Non-Reactive Normal Nonreactive [facility] Comment on above: Performed By: #### L [id number] #### [facility] ([facility]) [address] [place] [address] HEPATITIS C ANTIBODYon 03-27 HEPATITIS C VIRUS AB PRESENCE IN SERUM Non-Reactive Normal Nonreactive [facility] Comment on above: Performed By: #### L [id number] #### [facility] ([facility]) [address] [place] [address] QUANTIFERON TB GOLDon 2023 MITOGEN MINUS NIL 6.16 IU/mL Normal [facility] Comment on above: Performed By: #### L [id number] #### [facility] [address] [facility] [place] [address] NIL 0.05 IU/mL Normal [facility] Comment on above: Performed By: #### L [id number] #### [facility] ([facility]) [address] [place] [address] QUANTIFERON - TB GOLD TEST Negative Normal Negative [facility] Comment on above: Result Comment: Jomar tiferon TB Gold Interpretation (IU/mL): NEGATIVE: M. tuberculosis infection not likely. Nil: <=8.0 TB1 Antigen minus Nil (AH3RR-JLL): <0.35 OR >=0.35; and <25% of Nil value. TB2 Antigen minus Nil ([id number]-LVY): <0.35 OR >=0.35; and <25% of Nil value. Performed By: #### L [id number] #### [facility] ([facility]) [address] [place] [address] TB1 AG 0.05 IU/mL Normal [facility] Comment on above: Performed By: #### L [id number] #### [facility] ([facility]) [address] [place] [address] TB1 AG MINUS NIL 0.00 IU/mL Normal [facility] Comment on above: Performed By: #### L [id number] #### [facility] ([facility]) [address] [place] [address] TB2 AG 0.04 IU/mL Normal [facility] Comment on above: Performed By: #### L [id number] #### [facility] ([facility]) [address] [place] [address] TB2 AG MINUS NIL -0.01 IU/mL Normal [facility] Comment on above: Performed By: #### L [id number] #### [facility] ([facility]) [address] [place] [address] SEDIMENTATION RATEon 24-2 024 SEDIMENTATION RATE, ERYTHROCYTE 43 mm/hr High <=20 [facility] Comment on above: Performed By: #### L [id number] ####[facility] ([facility])[address] [place] [address] 36on 01-10-2023 36 PT has requested all of her Rheum prescribed medications be transferred to [facility]. Pharmacy has requested new orders as created. Last vist: 11/21/22 Next visit: 03/27/23 CMP/CBC: 11/21/22 [facility] Refillon 01-10-2023 Refill [id number] Asia Ramirez E 1970 F Date Provider Department [place] 01/10/2023 ROXANNE BERRY R[facility] RHEUM Marisol Heal No family history on file Reason for Visit and Comments: Med Refill [[id number]] [facility] 36on 01-08-2023 36 Last visit: 11/21/22 Next visit: 03/27/23 CBC/CMP: 11/21/22 Patient has requested for medications to be filled at [facility] as noted. [facility] Refillon 01-08-2023 Refill [id number] Asia Ramirez 1970 F Provider Department Center 01/08/2023 24411-LIPJQROXANNE HUGGINS RHC RHEUM Marisol Heal No family history on file [facility] 36on 11-28-2022 36 Last visit 11/21/22 Upcoming visit 03/27/23 Last cbc/cmp 11/21/22 [facility] 36on 11-21-2022 36 Last visit 06/29/22 Upcoming visit 11/21/22 Last cbc/cmp 06/29/22 [facility] CBC WITH AUTO DIFFERENTIALon 11-21-2022 Basophils (Bld) [#/Vol] 0.03 10*3/uL Normal 0.00-0.20 [facility] Comment on above: Performed By: #### L [id number] ####[facility] ([facility])[address] [place] [address] Basophils/100 WBC (Bld) 0.5 % Normal 0.0-1.0 [facility] Comment on above: Performed By: #### L [id number] ####[facility] ([facility])[address] [place] [address] Eosinophils (Bld) [#/Vol] 0.13 10*3/uL Normal 0.00-0.50 [facility] Comment on above: Performed By: #### L [id number] ####[facility] ([facility])[address] [place] [address] Eosinophils/100 WBC (Bld) 2.3 % Normal 0.0-6.0 [facility] Comment on above: Performed By: #### L [id number] ####[facility] [place] [address] Erythrocyte distribution width (RBC) [Ratio] 12.9 % Normal 11.5-15.0 [facility] Comment on above: Performed By: #### L [id number] ####[facility] ([facility])[address] [place] [address] ERYTHROCYTE MEAN CORPUSCULAR HEMOGLOBIN CONCENTRATION (G/DL) BY AUTOMATED 30.5 g/dL Low 32.0-35.0 [facility] Comment on above: Performed By: #### L [id number] ####[facility] ([facility])[address] [place] [address] Hematocrit (Bld) [Volume fraction] 36.7 % Normal 36.0-48.0 [facility] Comment on above: Performed By: #### L [id number] ####[facility] [place] [address] Hemoglobin (Bld) [Mass/Vol] 11.2 g/dL Low 12.0-15.0 [facility] Comment on above: Performed By: #### L [id number] ####[facility] ([facility])[address] [place] [address] Immature granulocytes (Bld) [#/Vol] 0.20 10*3/uL Normal 0.00-0.20 [facility] Comment on above: Performed By: #### L [id number] ####[facility] ([facility])[address] [place] [address] Immature granulocytes/100 WBC (Bld) 3.5 % High 0.0-1.0 [facility] Comment on above: Performed By: #### L [id number] ####[facility] ([facility])[address] [place] [address] Lymphocytes (Bld) [#/Vol] 1.70 10*3/uL Normal 1.20-4.00 [facility] Comment on above: Performed By: #### L [id number] ####[facility] ([facility])[address] [place] [address] Lymphocytes/100 WBC (Bld) 29.8 % Normal 20.0-45.0 [facility] Comment on above: Performed By: #### L [id number] ####[facility] ([facility])[address] [place] [address] MCH (RBC) [Entitic mass] 29.1 pg Normal 27.0-33.0 [facility] Comment on above: Performed By: #### L [id number] ####[facility] ([facility])[address] [place] [address] MCV (RBC) [Entitic vol] 95.3 fL Normal 82.0-98.0 [facility] Comment on above: Performed By: #### L [id number] ####[facility] ([facility])[address] [place] [address] Monocytes (Bld) [#/Vol] 0.30 10*3/uL Normal 0.10-1.00 [facility] Comment on above: Performed By: #### L [id number] ####[facility] ([facility])[address] [place] [address] Monocytes/100 WBC (Bld) 5.3 % Normal 5.0-12.0 [facility] Comment on above: Performed By: #### L [id number] ####[facility] ([facility])[address] [place] [address] Neutrophils (Bld) [#/Vol] 3.35 10*3/uL Normal 1.60-7.60 [facility] Comment on above: Performed By: #### L [id number] ####[facility] [place] [address] Neutrophils/100 WBC (Bld) 58.6 % Normal 40.0-72.0 [facility] Comment on above: Performed By: #### L [id number] ####[facility] ([facility])[address] [place] [address] NRBC (PER 100 WBCS) BY AUTOMATED COUNT 0.0 % Normal 0 [facility] Comment on above: Performed By: #### L [id number] ####[facility] ([facility])[address] [place] [address] PLATELETS (10*3/UL) IN BLOOD AUTOMATED COUNT 367 10*3/uL Normal 150-400 [facility] Comment on above: Performed By: #### L [id number] ####[facility] ([facility])[address] [place] [address] RBC (Bld) [#/Vol] 3.85 10*6/uL Normal 3.80-5.00 [facility] Comment on above: Performed By: #### L [id number] ####[facility] ([facility])[address] [place] [address] WBC (Bld) [#/Vol] 5.71 10*3/uL Normal 4.00-10.60 [facility] Comment on above: Performed By: #### L [id number] ####[facility] ([facility])[address] [place] [address] COMPREHENSIVE METABOLIC PANE Edvin 11-21-2022 Albumin [Mass/Vol] 4.3 g/dL Normal 3.5-5.7 [facility] Comment on above: Performed By: #### L [id number] #### [facility] ([facility]) [address] [place] [address] ALP [Catalytic activity/Vol] 77 U/L Normal 34-104 [facility] Comment on above: Performed By: #### L [id number] #### [facility] [address] [place] [address] ALT [Catalytic activity/Vol] 51 U/L Normal 7-52 [facility] Comment on above: Performed By: #### L [id number] #### [facility] [address] [place] [address] Anion gap [Moles/Vol] 14 mmol/L Normal 7-20 [facility] Comment on above: Performed By: #### L [id number] #### [facility] ([facility]) [address] [place] [address] AST [Catalytic activity/Vol] 91 U/L High 13-39 [facility] Comment on above: Performed By: #### L [id number] #### [facility] ([facility]) [address] [place] [address] Bilirubin [Mass/Vol] 0.3 mg/dL Normal 0.3-1.0 [facility] Comment on above: Performed By: #### L [id number] #### [facility] ([facility]) [address] [place] [address] Calcium [Mass/Vol] 9.0 mg/dL Normal 8.6-10.3 [facility] Comment on above: Performed By: #### L [id number] #### [facility] ([facility] [address] [place] [address] Chloride [Moles/Vol] 100 mmol/L Normal 98-107 [facility] Comment on above: Performed By: #### L [id number] #### [facility] ([facility] [address] [place] [address] CO2 [Moles/Vol] 26 mmol/L Normal 21-31 [facility] Comment on above: Performed By: #### L [id number] #### [facility] ([facility]) [address] [place] [address] Creatinine [Mass/Vol] 0.74 mg/dL Normal 0.60-1.20 [facility] Comment on above: Performed By: #### L [id number] #### [facility] ([facility]) [address] [place] [address] GLOMERULAR FILTRATION RATE ML/MIN/1.73 SQ M.PREDICTED 97.9 mL/min/1.73m*2 Normal >60.0 [facility] Comment on above: Result Comment: The [facility]???s estimated glomerular filtration rate (eGFR) will no [...] group of individuals. Performed By: #### L [id number] #### [facility] ([facility]) [address] [place] [address] Glucose [Mass/Vol] 191 mg/dL High 70-100 [facility] Comment on above: Performed By: #### L [id number] #### [facility] ([facility]) [address] [place] [address] Potassium [Moles/Vol] 3.9 mmol/L Normal 3.5-5.1 [facility] Comment on above: Performed By: #### L [id number] #### [facility] ([facility]) [address] [place] [address] Protein [Mass/Vol] 7.6 g/dL Normal 6.0-8.3 [facility] Comment on above: Performed By: #### L [id number] #### [facility] ([facility]) [address] [place] [address] Sodium [Moles/Vol] 136 mmol/L Normal 136-[address] [facility] Comment on above: Performed By: #### L [id number] #### [facility] ([facility]) [address] [place] [address] Urea nitrogen [Mass/Vol] 12 mg/dL Normal 7-25 [facility] Comment on above: Performed By: #### L [id number] #### [facility] ([facility]) [address] [place] [address] UREA NITROGEN/CREATININE (MASS RATIO) IN SER/PLAS 16.2 Normal [facility] Comment on above: Performed By: #### L [id number] #### [facility] ([facility]) [address] [place] [address] Follow-Upon 11-21-2022 Follow-Up [id number] Asia Ramirez 1970 F Date Provider Department Center 11/21/2022 [id number], [place] I [facility] RHEUM Marisol Heal No family history on file Level of Service:08812 ME OFFICE/OUTPATIENT ESTABLISHED MOD MDM 30-39 MIN (GC) Reason for Visit and Comments: Follow-up [128826] Normal [facility] HEPATITIS B CORE ANTIBODY, T OTALon 11-21-2022 HEPATITIS B VIRUS CORE AB (PRESENCE) IN SER/PLAS BY IMM Non-Reactive Normal Nonreactive [facility] Comment on above: Performed By: #### L [id number] #### [facility] ([facility]) [address] [place] [address] HEPATITIS B SURFACE ANTIGENo n 11-21-2022 HEPATITIS B VIRUS SURFACE AG PRESENCE IN SERUM Non-Reactive Normal Nonreactive [facility] Comment on above: Performed By: #### L [id number] #### [facility] ([facility]) [address] [place] [address] HEPATITIS C ANTIBODYon 11-21 HEPATITIS C VIRUS AB PRESENCE IN SERUM Non-Reactive Normal Nonreactive [facility] Comment on above: Performed By: #### L [id number] #### [facility] ([facility]) [address] [place] [address] LIPID PANELon 11-21-2022 CHOL/HDL 6.9 mg/dL Normal [facility] Comment on above: Performed By: #### L [id number] #### [facility] ([facility]) [address] [place] [address] Cholesterol [Mass/Vol] 264 mg/dL High 120-200 [facility] Comment on above: Performed By: #### L [id number] #### [facility] ([facility]) [address] [place] [address] CHOLESTEROL IN LDL (MG/DL) IN SERUM OR PLASMA BY CALCULATION Normal [facility] Comment on above: Result Comment: Calc ulated LDL invalid, triglycerides >400 mg/dl Performed By: #### L [id number] #### [facility] ([facility]) [address] [place] [address] Magnesium [Mass/Vol] 491 mg/dL High 40-149 [facility] Comment on above: Result Comment: TRIG LYCERIDE REFERENCE RANGE: 20 YEARS AND OLDER CARDIOVASCULAR RISK LESS THAN 150 mg/dL LOW RISK 150 TO 199 mg/dL BORDERLINE RISK 200 mg/dL AND GREATER HIGH RISK Performed By: #### L [id number] #### [facility] ([facility]) [address] [place] [address] Magnesium [Mass/Vol] 38 mg/dL Normal 23-92 [facility] Comment on above: Performed By: #### L [id number] #### [facility] ([facility]) [address] [address] NON HDL CHOL. (LDL+VLDL) 226 Normal [facility] Comment on above: Performed By: #### L [id number] #### [facility] ([facility]) [address] [address] TOTAL VLDL-C 98 mg/dL High 0-40 [facility] Comment on above: Performed By: #### L [id number] #### [facility] ([facility]) [address] [place] [address] Orders Onlyon 11-21-2022 Orders Only [id number] Asia Ramirez 1970 F Date Provider Department Center 11/21/2022 JUAN CARLOS [facility]STRO [facility] Marisol Heal No family history on file Normal [facility] QUANTIFERON TB GOLDon 2022 MITOGEN MINUS NIL 2.70 IU/mL Normal [facility] Comment on above: Performed By: #### L [id number] #### [facility] ([facility]) [address] [place] [address] NIL 0.09 IU/mL Normal [facility] Comment on above: Performed By: #### L [id number] #### [facility] ([facility]) [address] [place] [address] QUANTIFERON - TB GOLD TEST Negative Normal Negative [facility] Comment on above: Result Comment: Jomar tiferon TB Gold Interpretation (IU/mL): NEGATIVE: M. tuberculosis infection not likely. Nil: <=8.0 TB1 Antigen minus Nil (HN1XD-CPV): <0.35 OR >=0.35; and <25% of Nil value. TB2 Antigen minus Nil (JA4AG-DGT): <0.35 OR >=0.35; and <25% of Nil value. Performed By: #### L [id number] #### [facility] ([facility]) [address] [place] [address] TB1 AG 0.07 IU/mL Normal [facility] Comment on above: Performed By: #### L [id number] #### [facility] ([facility]) [address] [place] [address] TB1 AG MINUS NIL -0.02 IU/mL Normal [facility] Comment on above: Performed By: #### L [id number] #### [facility] ([facility]) [address] [place] [address] TB2 AG 0.06 IU/mL Normal [facility] Comment on above: Performed By: #### L [id number] #### [facility] ([facility]) [address] [place] [address] TB2 AG MINUS NIL -0.03 IU/mL Normal [facility] Comment on above: Performed By: #### L [id number] #### [facility] ([facility] [address] [place] [address] Refillon 11-21-2022 Refill [id number] Asia Ramirez ay E 1970 F Date Provider Department Center 11/21/2022 [place] I [facility] Marisol Heal No family history on file Reason for Visit and Comments: Med Refill [[id number]] [facility] SEDIMENTATION RATEon 023 SEDIMENTATION RATE, ERYTHROCYTE 55 mm/hr High <=20 [facility] Comment on above: Performed By: #### L [id number] #### [facility] ([facility]) [address] [address] 36on 10-22-2022 36 Last visit 06/29/22 Upcoming visit 11/21/22 Last cbc/cmp 06/29/22 [facility] 36 RHC patient [facility] Refillon 10-21-2022 Refill [id number] Asia Ramirez ay E 1970 F Date Provider Department Center 10/21/2022 [place] I [facility] Marisol Heal No family history on file Reason for Visit and Comments: Med Refill [[id number]] [facility] 36on 09-24-2022 36 RHC patient Normal [facility] Refillon 09-20-2022 Refill [id number] Asia Ramirez ay E 1970 F Date Provider Department Center 09/20/2022 [place] I [facility] Marisol Heal No family history on file Reason for Visit and Comments: Med Refill [[id number]] [facility] 25-HYDROXY VIT D (D2+D3 FRAC ) LC/MS-MSon 06-26-2022 25-Hydroxy, Vitamin D 11 ng/mL Critically low [facility] Comment on above: Result Comment: Refe rence Range: All Ages: Target levels 30 - 100 Performed By: #### V ITDLC #### [facility] [address] [place] [address] Dr. Asia Potter 25-Hydroxy, Vitamin D-2 1.0 ng/mL Normal [facility] Comment on above: Result Comment: This test was developed and its performance characteristics determined by [facility]. It has not been cleared or approved by the Food and Drug Administration. Performed By: #### V ITDLC #### [facility] [address] [place] [address] Dr. Asia Potter 25-Hydroxy, Vitamin D-3 10 ng/mL Normal [facility] Comment on above: Result Comment: This test was developed and its performance characteristics determined by [facility]. It has not been cleared or approved by the Food and Drug Administration. Performed By: #### V ITDLC #### [facility] [address] [place] [address] Dr. Asia Potter PROF CHEM 8 (BAS METB)on Anion gap [Moles/Vol] 16.5 mmol/L Normal [facility] Comment on above: Performed By: #### B MP #### [facility] [address] [place] [address] Dr. Asia Potter Calcium [Mass/Vol] 10.0 mg/dL Normal 8.5-10.1 [facility] Comment on above: Performed By: #### B MP #### [facility] [address] [place] [address] Dr. Asia Potter Chloride [Moles/Vol] 98 mmol/L Normal 98-107 [facility] Comment on above: Performed By: #### B MP #### [facility] [address] [place] [address] Dr. Asia Potter CO2 [Moles/Vol] 28.3 mmol/L Normal 21.0-32.0 [facility] Comment on above: Performed By: #### B MP #### [facility] [address] [place] [address] Dr. Asia Potter Creatinine [Mass/Vol] 1.18 mg/dL Critically high 0.55-1.02 [facility] Comment on above: Performed By: #### B MP #### [facility] [address] [address] [address] Asia Potter EGFR-AF CANADIAN 59 mL/min/1.73m2 Critically low >=60 [facility] Comment on above: Performed By: #### B MP #### [facility] [address] [address] [address] Asia Potter EGFR-NON AF CANADIAN 48 mL/min/1.73m2 Critically low >=60 [facility] Comment on above: Performed By: #### B MP #### [facility] [address] [address] [address] Asia Potter Glucose [Mass/Vol] 238 mg/dL Critically high 74-106 [facility] Comment on above: Performed By: #### B MP #### [facility] [address] [address] [address] Asia Potter Potassium [Moles/Vol] 4.8 mmol/L Normal 3.5-5.1 [facility] Comment on above: Performed By: #### B MP #### [facility] [address] [address] [address] Asia Potter Sodium [Moles/Vol] 138 mmol/L Normal 136-145 [facility] Comment on above: Performed By: #### B MP #### [facility] [address] [address] [address] Asia Potter Urea nitrogen [Mass/Vol] 30.0 mg/dL Critically high 7.0-18.0 [facility] Comment on above: Performed By: #### B MP #### [facility] [address] [address] [address] Asia Potter Urea nitrogen/Creatinine [Mass ratio] 25.4 mg/mg Normal [facility] Comment on above: Performed By: #### B MP #### [facility] [address] [address] [address] Asia Potter TSHon 06-20-2022 TSH 2.802 uIU/mL Normal 0.358-3.740 [facility] Comment on above: Performed By: #### T SH #### [facility] [address] [place] [address] Dr. Asia Potter VIT B12 AND FOLATEon 023 Cobalamin (Vitamin B12) [Mass/Vol] 369.0 pg/mL Normal 193.0-986.0 [facility] Comment on above: Performed By: #### B 12FOL #### [facility] [address] [place] [address] Dr. Asia Potter FOLATE 23.90 ng/mL Normal 8.60-58.90 [facility] Comment on above: Performed By: #### B 12FOL #### [facility] [address] [place] [address] Dr. Asia Potter CBC AUTO DIFFon 01-04-2022 BASO # 0.0 103/ul Normal 0.0-0.1 [facility] Comment on above: Performed By: #### C BC #### [facility] [address] [place] [address] Dr. Asia Potter Basophils/100 WBC (Bld) 0.3 % Normal 0.2-2.0 [facility] Comment on above: Performed By: #### C BC #### [facility] [address] [place] [address] Dr. Asia Potter EO # 0.2 103/ul Normal 0.0-0.7 [facility] Comment on above: Performed By: #### C BC #### [facility] [address] [place] [address] Dr. Asia Potter Eosinophils/100 WBC (Bld) 2.1 % Normal 0.9-7.0 [facility] Comment on above: Performed By: #### C BC #### [facility] [address] [place] [address] Dr. Asia Potter Erythrocyte distribution width (RBC) [Ratio] 13.4 % Normal 11.0-15.0 [facility] Comment on above: Performed By: #### C BC #### [facility] [address] [place] [address] Dr. Asia Potter Hematocrit (Bld) [Volume fraction] 37.2 % Normal 36.0-48.0 [facility] Comment on above: Performed By: #### C BC #### [facility] [address] [place] [address] Dr. Asia Potter Hemoglobin (Bld) [Mass/Vol] 11.6 g/dL Critically low 12.0-16.0 [facility] Comment on above: Performed By: #### C BC #### [facility] [address] [place] [address] Dr. Asia Potter IG # 0.06 10e3/ul Critically high 0.00-0.03 [facility] Comment on above: Performed By: #### C BC #### [facility] [address] [place] [address] Dr. Asia Potter IG % 0.8 % Critically high 0.0-0.5 [facility] Comment on above: Performed By: #### C BC #### [facility] [address] [place] [address] Dr. Asia Potter LYMPH # 1.7 103/ul Normal 1.2-3.8 [facility] Comment on above: Performed By: #### C BC #### [facility] [address] [place] [address] Dr. Asia Potter Lymphocytes/100 WBC (Bld) 22.3 % Normal 20.5-60.0 [facility] Comment on above: Performed By: #### C BC #### [facility] [address] [place] [address] Dr. Asia Potter MANUAL DIFF REQ NO Normal [facility] Comment on above: Performed By: #### C BC #### [facility] [address] [place] [address] Dr. Asia Potter MCH (RBC) [Entitic mass] 29.1 pg Normal 26.7-34.0 [facility] Comment on above: Performed By: #### C BC #### [facility] [address] [place] [address] Dr. Asia Potter MCHC (RBC) [Mass/Vol] 31.2 g/dL Normal 29.9-35.2 [facility] Comment on above: Performed By: #### C BC #### [facility] [address] [place] [address] Dr. Asia Potter MCV (RBC) [Entitic vol] 93.5 fL Normal 81.0-99.0 [facility] Comment on above: Performed By: #### C BC #### [facility] [address] [place] [address] Dr. Asia Potter MONO # 0.4 103/ul Normal 0.3-0.8 [facility] Comment on above: Performed By: #### C BC #### [facility] [address] [place] [address] Dr. Asia Potter Monocytes/100 WBC (Bld) 5.2 % Normal 1.7-12.0 [facility] Comment on above: Performed By: #### C BC #### [facility] [address] [place] [address] Dr. Asia Potter NEUT # 5.4 103/ul Normal 1.4-6.5 [facility] Comment on above: Performed By: #### C BC #### [facility] [address] [place] [address] Dr. Asia Potter Neutrophils/100 WBC (Bld) 69.3 % Normal 43.0-75.0 [facility] Comment on above: Performed By: #### C BC #### [facility] [address] [place] [address] Dr. Asia Potter Platelet mean volume (Bld) [Entitic vol] 9.4 fL Critically low 9.5-13.5 [facility] Comment on above: Performed By: #### C BC #### [facility] [address] [place] [address] Dr. Asia Potter PLT 316 103/ul Normal 150-450 [facility] Comment on above: Performed By: #### C BC #### [facility] [address] [place] [address] Dr. Asia Potter RBC 3.98 106/ul Critically low 4.20-5.40 [facility] Comment on above: Performed By: #### C BC #### [facility] [address] [address] [address] Asia Potter WBC 7.8 103/ul Normal 4.0-11.0 [facility] Comment on above: Performed By: #### C BC #### [facility] [address] [address] [address] Asia Potter GLYCOHEMOGLOBIN A1Con 2021 ADA RECOMMENDATION SEE BELOW Normal [facility] Comment on above: Result Comment: ADA RECOMMENDED LIMIT 4.0 - 6.0 ADA THERAPEUTIC TARGET < 7.0 ACTION SUGGESTED > 7.0 Performed By: #### A 1C #### [facility] [address] [place] [address] Dr. Asia Potter Glucose [Mass/Vol] 174 mg/dL Normal [facility] Comment on above: Performed By: #### A 1C #### [facility] [address] [address] [address] Asia Potter HbA1c (Bld) [Mass fraction] 7.7 % Critically high 4.5-6.2 [facility] Comment on above: Performed By: #### A 1C #### [facility] [address] [place] [address] Dr. Asia Potter LIPID PROFILEon 01-04-2022 CHOL-HDL RATIO NORM SEE BELOW Normal [facility] Comment on above: Result Comment: 3.3 - 4.4 LOW RISK 4.4 - 7.1 AVERAGE RISK 7.1 - 11.0 MODERATE RISK >11.0 HIGH RISK Performed By: #### L IPID, TSH, CMP #### [facility] [address] [address] [address] Asia Potter Cholesterol [Mass/Vol] 161 mg/dL Normal <=200 [facility] Comment on above: Performed By: #### L IPID, TSH, CMP #### [facility] [address] [address] [address] Asia Potter Cholesterol in HDL [Mass/Vol] 37 mg/dL Critically low 40-60 [facility] Comment on above: Performed By: #### L IPID, TSH, CMP #### [facility] [address] [address] [address] Asia Potter Cholesterol in LDL [Mass/Vol] 94.8 mg/dL Normal [facility] Comment on above: Performed By: #### L IPID, TSH, CMP #### [facility] [address] [address] [address] Asia Potter Cholesterol.total/C holesterol in HDL [Mass ratio] 4.4 {ratio} Normal [facility] Comment on above: Performed By: #### L IPID, TSH, CMP #### [facility] [address] [address] [address] Asia Potter HDL NORMAL > or = 60 mg/dl - LO W CARDIOVASCULAR RISK <40 mg/dl - HIGH CARDIOVASCULAR RISK Normal [facility] Comment on above: Performed By: #### L IPID, TSH, CMP #### [facility] [address] [address] [address] Asia Potter LDL CALC NORMAL SEE BELOW Normal [facility] Comment on above: Result Comment: <100 mg/dl OPTIMAL 100 - 129 mg/dl NEAR OR ABOVE OPTIMAL 130 - 159 mg/dl BORDERLINE HIGH 160 - 189 mg/dl HIGH >190 mg/dl VERY HIGH Performed By: #### L IPID, TSH, CMP #### [facility] [address] [address] [address] Asia Potter Triglyceride [Mass/Vol] 146 mg/dL Normal <=150 [facility] Comment on above: Performed By: #### L IPID, TSH, CMP #### [facility] [address] [address] [address] Asia Potter VLDL CALC 29.2 mg/dL Normal [facility] Comment on above: Performed By: #### L IPID, TSH, CMP #### [facility] [address] [address] [address] Asia Potter PROF 14(COMP METB)on 022 Albumin [Mass/Vol] 3.7 g/dL Normal 3.4-5.0 [facility] Comment on above: Performed By: #### L IPID, TSH, CMP #### [facility] [address] [address] [address] Asia Potter Albumin/Globulin [Mass ratio] 0.9 {ratio} Normal [facility] Comment on above: Performed By: #### L IPID, TSH, CMP #### [facility] [address] [address] [address] Asia Potter ALP [Catalytic activity/Vol] 90 U/L Normal 46-116 [facility] Comment on above: Performed By: #### L IPID, TSH, CMP #### [facility] [address] [address] [address] Asia Potter ALT [Catalytic activity/Vol] 53 U/L Normal 14-59 [facility] Comment on above: Performed By: #### L IPID, TSH, CMP #### [facility] [address] [address] [address] Asia Potter Anion gap [Moles/Vol] 11.8 mmol/L Normal [facility] Comment on above: Performed By: #### L IPID, TSH, CMP #### [facility] [address] [address] [address] Asia Potter AST [Catalytic activity/Vol] 42 U/L Critically high 15-37 [facility] Comment on above: Performed By: #### L IPID, TSH, CMP #### [facility] [address] [address] [address] Asia Potter Bilirubin [Mass/Vol] 0.2 mg/dL Normal 0.2-1.0 [facility] Comment on above: Performed By: #### L IPID, TSH, CMP #### [facility] [address] [address] [address] Asia Potter Calcium [Mass/Vol] 9.3 mg/dL Normal 8.5-10.1 [facility] Comment on above: Performed By: #### L IPID, TSH, CMP #### [facility] [address] [address] [address] Asia Potter Chloride [Moles/Vol] 100 mmol/L Normal 98-107 [facility] Comment on above: Performed By: #### L IPID, TSH, CMP #### [facility] [address] [place] [address] Dr. Asia Potter CO2 [Moles/Vol] 27.5 mmol/L Normal 21.0-32.0 [facility] Comment on above: Performed By: #### L IPID, TSH, CMP #### [facility] [address] [address] [address] Asia Potter Creatinine [Mass/Vol] 0.77 mg/dL Normal 0.55-1.02 [facility] Comment on above: Performed By: #### L IPID, TSH, CMP #### [facility] [address] [place] [address] Dr. Asia Potter EGFR-AF CANADIAN >60 Normal >=60 [facility] Comment on above: Performed By: #### L IPID, TSH, CMP #### [facility] [address] [place] [address] Dr. Asia Potter EGFR-NON AF CANADIAN >60 Normal >=60 [facility] Comment on above: Performed By: #### L IPID, TSH, CMP #### [facility] [address] [place] [address] Dr. Asia Potter Globulin (S) [Mass/Vol] 4.1 g/dL Normal [facility] Comment on above: Performed By: #### L IPID, TSH, CMP #### [facility] [address] [place] [address] Dr. Asia Potter Glucose [Mass/Vol] 168 mg/dL Critically high 74-106 [facility] Comment on above: Performed By: #### L IPID, TSH, CMP #### [facility] [address] [place] [address] Dr. Asia Potter Potassium [Moles/Vol] 4.3 mmol/L Normal 3.5-5.1 [facility] Comment on above: Performed By: #### L IPID, TSH, CMP #### [facility] [address] [place], [place] [id number] Dr. Asia Potter Protein [Mass/Vol] 7.8 g/dL Normal 6.4-8.2 [facility] Comment on above: Performed By: #### L IPID, TSH, CMP #### [facility] [address] [place] [address] Dr. Asia Potter Sodium [Moles/Vol] 135 mmol/L Critically low 136-145 Th [facility] Comment on above: Performed By: #### L IPID, TSH, CMP #### [facility] [address] [place] [address] Dr. Asia Potter Urea nitrogen [Mass/Vol] 17.0 mg/dL Normal 7.0-18.0 [facility] Comment on above: Performed By: #### L IPID, TSH, CMP #### [facility] [address] [place] [address] Dr. Asia Potter Urea nitrogen/Creatinine [Mass ratio] 22.1 mg/mg Normal [facility] Comment on above: Performed By: #### L IPID, TSH, CMP #### [facility] [address] [place] [address] Dr. Asia Potter TSHon 01-04-2022 TSH 2.411 uIU/mL Normal 0.358-3.740 [facility] Comment on above: Performed By: #### L IPID, TSH, CMP #### [facility] [address] [place] [address] Dr. Asia Potter CBC W/DIFFon 06-06-2018 ABS BASOPHILS 0.0 10*3/uL Normal 0.0-0.2 [facility] Comment on above: Performed By: #### 5 0103, 16641 #### [facility] [address] [place] [address], [facility] ABS IMM GRANS 0.0 10*3/uL Normal 0.0-0.2 [facility] Comment on above: Performed By: #### 5 0103, 77136 #### [facility] [address] [place] [address], [facility] ABS NEUTROPHILS 5.1 10*3/uL Normal 1.6-7.6 [facility] Comment on above: Performed By: #### 5 102, 03778 #### [facility] [address] [facility] [place] [address], [facility] Basophils/100 WBC (Bld) 0.3 % Normal 0.0-1.0 [facility] Comment on above: Performed By: #### 5 102, 00650 #### [facility] [address] [facility] [place] [address], [facility] Eosinophils (Bld) [#/Vol] 0.2 10*3/uL Normal 0.0-0.5 [facility] Comment on above: Performed By: #### 5 102, 60066 #### [facility] [address] [facility] [place] [address], [facility] Eosinophils/100 WBC (Bld) 3.4 % Normal 0.0-6.0 [facility] Comment on above: Performed By: #### 5 102, 24261 #### [facility] [address] [facility] Erythrocyte distribution width (RBC) [Ratio] 13.2 % Normal 11.5-15.0 [facility] Comment on above: Performed By: #### 5 102, 60830 #### [facility] [address] [place] [address], [facility] Hematocrit (Bld) [Volume fraction] 36.3 % Normal 36.0-45.0 [facility] Comment on above: Performed By: #### 5 102, 34323 #### [facility] [address] [place] [address], [facility] Hemoglobin (Bld) [Mass/Vol] 11.6 g/dL Low 12.0-15.0 [facility] Comment on above: Performed By: #### 102, 83024 #### [facility] [address] [place] [address], [facility] IMMATURE GRANS 0.6 % Normal 0.0-1.0 [facility] Comment on above: Performed By: #### 5 102, 72596 #### [facility] [address] [facility] [place] [address], [facility] Lymphocytes (Bld) [#/Vol] 1.0 10*3/uL Low 1.2-4.0 [facility] Comment on above: Performed By: #### 5 102, 70240 #### [facility] [address] [place] [address], [facility] Lymphocytes/100 WBC (Bld) 15.3 % Low 20.0-45.0 [facility] Comment on above: Performed By: #### 5 102, 63773 #### [facility] [address] MCH (RBC) [Entitic mass] 29.1 pg Normal 27.0-33.0 [facility] Comment on above: Performed By: #### 5 102, 30627 #### [facility] [address] MCHC (RBC) [Mass/Vol] 32.0 g/dL Normal 32.0-35.0 [facility] Comment on above: Performed By: #### 5 102, 17579 #### [facility] [address] [place] [address], [facility] MCV (RBC) [Entitic vol] 91.0 fL Normal 82.0-98.0 [facility] Comment on above: Performed By: #### 5 102, 00479 #### [facility] [address] [place] [address], [facility] Monocytes (Bld) [#/Vol] 0.4 10*3/uL Normal 0.1-1.0 [facility] Comment on above: Performed By: #### 5 102, 81856 #### [facility] [address] [place] [address], [facility] MONOS 5.6 % Normal 5.0-12.0 [facility] Comment on above: Performed By: #### 5 102, 57938 #### [facility] [address] [place] [address], [facility] Neutrophils/100 WBC (Bld) 74.8 % High 40.0-72.0 [facility] Comment on above: Performed By: #### 5 102, 73251 #### [facility] [address] [facility] [place] [address], [facility] Nucleated RBC/100 WBC (Bld) [Ratio] 0 % Normal 0-0 [facility] Comment on above: Performed By: #### 5 102, 83050 #### [facility] [address] [facility] [place] [address], [facility] PLAT CNT 291 10*3/uL Normal 150-400 [facility] Comment on above: Performed By: #### 5 102, 83163 #### [facility] [address] [facility] [place] [address], [facility] RBC (Bld) [#/Vol] 3.99 10*6/uL Normal 3.80-5.00 [facility] Comment on above: Performed By: #### 5 102, 58716 #### [facility] [address] [facility] [place] [address], [facility] WBC (Bld) [#/Vol] 6.75 10*3/uL Normal 4.00-10.60 [facility] Comment on above: Performed By: #### 5 102, 39712 #### [facility] [address] [place] [address], [facility] COMP METABOLIC PANELon 06-06 Albumin [Mass/Vol] 4.0 g/dL Normal 3.5-5.7 [facility] Comment on above: Performed By: #### 0 012, 40979 #### [facility] [address] [place] [address], [facility] ALKALINE PHOSPH 79 IU/L Normal 34-104 [facility] Comment on above: Performed By: #### 0 012, 24466 #### [facility] [address] [place] [address], [place] ALT [Catalytic activity/Vol] 21 U/L Normal 7-52 [facility] Comment on above: Performed By: #### 0 012, 60141 #### [facility] [address] [place] [address], [place] AST [Catalytic activity/Vol] 19 U/L Normal 13-39 [facility] Comment on above: Performed By: #### 0 012, 43893 #### [facility] [address] [place] [address], [place] Bilirubin [Mass/Vol] 0.3 mg/dL Normal 0.3-1.0 [facility] Comment on above: Performed By: #### 0 012, 22290 #### [facility] [address] [place] [address], [place] Calcium [Mass/Vol] 9.2 mg/dL Normal 8.6-10.3 [facility] Comment on above: Performed By: #### 0 012, 59406 #### [facility] [address] [place] [address], [place] Chloride [Moles/Vol] 100 mmol/L Normal 98-107 [facility] Comment on above: Performed By: #### 0 012, 26804 #### [facility] [address] [place] [address], [place] CO2 [Moles/Vol] 30 mmol/L Normal 21-31 [facility] Comment on above: Performed By: #### 0 012, 63312 #### [facility] [address] [place] [address], [place] Creatinine [Mass/Vol] 0.53 mg/dL Low 0.60-1.20 [facility] Comment on above: Performed By: #### 0 0121, 92999 #### [facility] [address] [place] [address], [place] GFR/1.73 sq M predicted among blacks MDRD (S/P/Bld) [Vol rate/Area] mL/min/{1.73_m2} Normal >60 [facility] Comment on above: Performed By: #### 0 0121, 53600 #### [facility] [address] [place] [address], [place] GFR/1.73 sq M predicted among non-blacks MDRD (S/P/Bld) [Vol rate/Area] mL/min/{1.73_m2} Normal >60 [facility] Comment on above: Performed By: #### 0 0121, 02938 #### [facility] [address] [place] [address], [place] Glucose [Mass/Vol] 156 mg/dL High 70-100 [facility] Comment on above: Performed By: #### 0 0121, 56268 #### [facility] [address] [place] [address], [place] Potassium [Moles/Vol] 3.8 mmol/L Normal 3.5-5.1 [facility] Comment on above: Performed By: #### 0 0121, 84708 #### [facility] [address] [place] [address], [place] Protein [Mass/Vol] 7.4 g/dL Normal 6.0-8.3 [facility] Comment on above: Performed By: #### 0 0121, 30703 #### [facility] [address] [place] [address], [place] Sodium [Moles/Vol] 137 mmol/L Normal 136-145 [facility] Comment on above: Performed By: #### 0 0121, 99426 #### [facility] [address] [facility]. [address] Urea nitrogen [Mass/Vol] 7 mg/dL Normal 7-25 [facility] Comment on above: Performed By: #### 0 0121, 04870 #### [facility] [address] [facility]. [address] CYCLIC [place]INATED PEPTIDE [place] [id number] 06-06-2018 CYCLIC CIT PEP 8 Units Normal 0-19 [facility] Comment on above: Result Comment: INTE RPRETIVE [...] be monitored and testing repeated. Performed by [employer], [address] [place] [id number] [email or web address], Inocente Gregory MD - Lab. Director [facility] PATHon 019 RESULT Results to be mailed directly to physician's office by reference lab. Normal [facility] Comment on above: Order Comment: RA DI SEASE ACTIVITY WITH SCORING-VECTRA DA BOX Result Comment: VECT RA DA [employer] [address] [facility] [place], [place] [address] No result expected. For billing and tracking purposes only. Performed By: #### 8 4608 #### [facility] [address] [place] [address], [facility] RHEUMATOID FACTOR SERUMon RA <20 Normal 0-20 [facility] Comment on above: Performed By: #### 1 0204 #### [facility] [address] [place] [address], [facility] SEDIMENTATION RATEon 019 SED RATE 40 mm/hr High 0-20 [facility] Comment on above: Performed By: #### 5 0103, 92617 #### [facility] [address] [facility] [place] [address], [facility] TSH3 WITH REFLEXon 9 Free T4 [Mass/Vol] 0.71 ng/dL Normal 0.71-1.85 [facility] Comment on above: Result Comment: This result added by IF on 06/06/2018 15:57. Performed By: #### 0 0121, 39057 #### [facility] [address] [facility] [place] [address], [facility] TSH 3RD GENERATION 1.27 uIU/mL Normal 0.34-5.60 [facility] Comment on above: Performed By: #### 0 0121, 19190 #### [facility] [address] [facility]. [address] Encounters Encounter Date Encounter Type Care Provider Facility Start: 06-26-2023 End: 06-26-20[facility] Start: 03-27-2023 End: 03-27-2023 ambulatory PAPITO Su [facility] Start: 11-21-2022 End: 11-21-2022 [facility] Start: 06-20-2022 End: 06-21-2022 ambulatory [facility] Facility:[facility] Start: 01-04-2022 End: 01-05-[address] DOCTOR SPARKS Facility:[facility] Start: 10-08-[address] DOCTOR SPARKS Facility :[facility] Procedures Date Procedure Procedure Detail Performing Clinician Start: 06-26-2023 Follow-up visit Follow-up PAPITO STEWARD Payers Date Payer Category Payer Medicaid [id number] 1970 Unknown [id number] [id number] [id number] 1970 Unknown [id number] 2.16.84 [id number] 1971 Unknown [id number] 2.16.84 [id number] 1971 Unknown [id number] 2.16.84 [id number] 1958 Self-pay 1958 Unknown [id number] Clinical Notes 11-21-2022 to 06-28-2023 Note Date & Type Note Facility 06-28-2023 Note Consult agreement. Patient requests RX be sent to [facility]. [facility] 06-26-2023 Note Called patient to se valdovinos if she heard from [employer] regarding shipment/delivery- LVMTCB. Joycelyn Galvez PharmD Outpatient Clinical Pharmacist [facility] [phone] 07/05/23 11:29 AM [facility] 06-26-2023 Note Specialty Pharmacy N ote: Rinvoq Supervising Physician & Clinic:?? Dr Papito Steward & [facility] Rheumatology Marisol Ramirez is a 52 y.o. year old female patient with PMH of: Rheumatoid Arthritis with rheumatoid factor and Fibromyalgia. Patient Active Problem List Diagnosis Fibromyositis Joint pain Seronegative rheumatoid arthritis (CMS/HCC) Allergies Allergen Reactions Hydrocodone Other Oxycodone Other Bee Venom Protein (Honey Bee) Other reaction(s): Hives Hydrocodone-Acetaminophen Other reaction(s): stomach upset violently Oxycodone-Acetaminophen Other reaction(s): couldn't breath, wired, insomnia Adhesive Tape-Silicones Rash Diazepam Palpitations PharmD consulted for evaluation of Rinvoq for treatment of Rheumatoid Arthritis (Diagnosis Code: M05.9). ?? Prescribed Dosing: Rinvoq 15 mg PO QD Previous medications tried: Enbrel (03/2023-06/2023); ineffective Gabapentin (02/2021-current) Celecoxib (05/2013-current) Rinvoq ER 15 mg (01/2020-03/2023); switched to Enbrel Prednisone (09/2013-current) Methotrexate (11/2013-04/2020); side effects, increased LFT's Xeljanz (05/2016-12/2019); ineffective Baclofen (03/2015-06/2018); ineffective Humira (06/2014-11/2014); ineffective Remicade (11/[id number]); allergic reaction Actemra (unknown dates); ineffective Lyrica No pertinent drug interactions were noted. No renal or hepatic dose adjustments necessary. Vitals: Ht Readings from Last 1 Encounters: 06/26/23 1.524 m (5') Wt Readings from Last 1 Encounters: 06/26/23 119 kg (262 lb) BMI Readings from Last 1 Encounters: 06/26/23 51.17 kg/m??? BP Readings from Last 1 Encounters: 06/26/23 153/80 Pulse Readings from Last 1 Encounters: 06/26/23 80 Pertinent labs: CMP: Lab Results Component Value Date GLUCOSE 140 (H) 03/27/2023 CALCIUM 9.2 03/27/2023 NA 136 03/27/2023 K 4.6 03/27/2023 CO2 28 03/27/2023 CL 100 03/27/2023 BUN 19 03/27/2023 CREATININE 0.79 03/27/2023 EGFR 90.5 03/27/2023 LFTs: Lab Results Component Value Date ALT 46 03/27/2023 AST 75 (H) 03/27/2023 ALKPHOS 93 03/27/2023 BILITOT 0.3 03/27/2023 ALBUMIN 4.4 03/27/2023 PROT 7.9 03/27/2023 CBC: Lab Results Component Value Date WBC 6.93 03/27/2023 HGB 12.4 03/27/2023 HCT 40.0 03/27/2023 MCV 94.3 03/27/2023 PLT 298 03/27/2023 NEUTROABS 4.51 03/27/2023 LYMPHSABS 1.89 03/27/2023 TB: Lab Results Component Value Date QFG Negative 03/27/2023 Viral Hepatitis: Lab Results Component Value Date HEPBSAG Nonreactive 03/27/2023 HEPBCAB Nonreactive 03/27/2023 HEPCAB Nonreactive 03/27/2023 Evaluation: Based on evaluation within normal limits and trial and failure of several medications, patient is an appropriate candidate for this medication.? Follow-up: We received a new prescription for Rinvoq. Upon looking at the patient's chart, its appears this is a re-start. Rinvoq was recently discontinued in Mar 2023 and Enbrel was started. Patient failed Enbrel and Rinvoq is being restarted. Dr Steward's note is still open and incomplete. We are awaiting clinic notes to see why she taken off Rinvoq and now restarting it. Patient also has high cholesterol. The Rinvoq is requiring a Prior Authorization through the insurance. Once Dr Steward's note is signed and completed, we can submit PA in CMM. I called patient to discuss new medication Rinvoq, PA process, and to get a detailed medication history- LVMTCB. Joycelyn Galvez PharmD Outpatient Clinical Pharmacist [facility] [phone] 06/26/23 4:15 PM [facility] 06-26-2023 Note Patient returned tari l to let us know that [facility] will include the Rinvoq in her next pill packs. She currently has enough on hand to last until then. We will no longer follow up until time for PA renewal. Patient will call with any further questions or issues. Martha Wilson PharmD, [facility] Outpatient Clinical Pharmacist [facility] [phone] 07/09/23 12:49 PM [facility] 06-26-2023 Note [facility] the [facility]- she still hasn't reached out to [facility]. She will call them today and call us back with an update. Joycelyn Galvez PharmD Outpatient Clinical Pharmacist [facility] [phone] 07/09/23 12:43 PM [facility] 06-26-2023 Note Called patient to in form her of PA approval, $0 copay, and RX at [facility]. Patient states she has not heard from [facility]- I called them to check the status of the RX and it is currently in process and ready for shipment when they hear from the patient ($0 copay). I called patient to provide her with [facility] phone # [phone]. Also discussed repeating her lipid panel that Dr Sy ross ordered- LVAZCB. Joycelyn Galvez PharmD Outpatient Clinical Pharmacist [facility] [phone] 07/02/23 12:56 PM [facility] 06-26-2023 Note The prior authorizat ion has been approved through 09/24/2023, authorization #: [id number]. Copay $0. I tried reaching the patient to provide an update - no answer, LVMTCB. Makenna Jackson CPhT [facility] 06/28/23 9:01 AM [facility] 06-26-2023 Note Patient called back and requested RX be transferred to [facility]. I will send RX there. Mady Segovia PharmD Outpatient Clinical Pharmacist [facility] [phone] 06/28/23 9:29 AM [facility] 06-26-2023 Note -------- Attestation signed by Papito Steward MD at 06/26/2023 10:37 PM By using the attestations below, the [...] was present and supervised the procedure -------- [place] Protocol Documentation for Invasive Procedures List all members of procedural/operative team: Dr. Dan and Dr Steward Verification of correct patient using two patient identifiers. Verification of correct imaging studies and implant. Verification of correct equipment including emergency equipment. Site marked with marker???s initials. Verification of time-out process. Consent signed. LOCATION: Wrists, 2nd right MCP, 3rd left MCP CLINICAL INDICATION: Pain and swelling FINDINGS: * Joint Space: Preserved, mildly enlarged synovium at MCPs, some power doppler positive at wrists joints, bilaterally, indicative of inflammation * Soft tissue structure around joint: Preserved * Abnormalities noted: Bilateral wrist inflammation and some synovial enlargement at MCPs IMPRESSION: Bilateral wrist synovitis. (Must include permanently recorded images with 2 patient identifiers) Media Information Document Information [facility] [place] Clinical Unknown Left 3rd mcp 06/26/2023 11:18 Attached To: Follow-Up on 06/26/23 with Papito Steward MD Source Information Kenneth Dan MD [facility] Media Information Document Information [facility] [place]: Clinical Unknown Left wrist 06/26/2023 11:18 Attached To: Follow-Up on 06/26/23 with Papito Steward MD Source Information Kenneth Dan MD [facility] Media Information Document Information [facility] [place]: Clinical Unknown Right 2nd mcp 06/26/2023 11:17 Attached To: Follow-Up on 06/26/23 with Papito Steward MD Source Information Kenneth Dan MD [facility] Media Information Document [place] [facility] [place]: Clinical Unknown Right wrist 06/26/2023 11:17 Attached To: Follow-Up on 06/26/23 with Papito Steward MD Source Information Kenneth Dan MD [facility] Media Information Document Information [facility] [place]: Clinical Unknown Right wrist 06/26/2023 11:17 Attached To: Follow-Up on 06/26/23 with Papito Steward MD Source Information Kenneth Dan MD [facility] 06-26-2023 Note Subjective Patient ID: Marisol Ramirez is a 52 y.o. female who presents for Follow-up (3 mth follow up). HPI We switched her from Rinvoq to Enbrel last visit hoping that it would improve her symptoms. However she continues to have increased in joint pain compared to before. She feels that Rinvoq was more effective. She has morning stiffness lasting for 1 to 2 hours. Pain in the small joints of the hands and large joints of the upper extremities is moderate to severe in intensity. Review of Systems Constitutional: Positive for activity change and fatigue. Negative for appetite change, chills and fever. HENT: Negative for congestion and ear pain. Eyes: Negative for pain and discharge. Respiratory: Negative for cough, shortness of breath and wheezing. Cardiovascular: Negative for chest pain, palpitations and leg swelling. Gastrointestinal: Negative for abdominal distention and abdominal pain. Endocrine: Negative for cold intolerance and polyuria. Genitourinary: Negative for difficulty urinating, dysuria, frequency and hematuria. Musculoskeletal: Positive for arthralgias, back pain, gait problem and joint swelling. Skin: Negative for rash and wound. Neurological: Negative for dizziness, numbness and headaches. Hematological: Negative for adenopathy. Psychiatric/Behavioral: Negative for agitation, behavioral problems and confusion. Objective Visit Vitals BP 153/80 (BP Location: Left wrist, Patient Position: Sitting) Pulse 80 Physical Exam Vitals and nursing note reviewed. [...] There is no abdominal tenderness. Musculoskeletal: General: Swelling, tenderness and deformity present. Normal range of motion. Cervical back: Normal range of motion and neck supple. No tenderness. Right lower leg: No edema. Left lower leg: No edema. Skin: General: Skin is warm. Coloration: Skin is not jaundiced. Findings: No bruising, erythema, lesion or rash. Neurological: General: No focal deficit present. Mental Status: She is alert and oriented to person, place, and time. Cranial Nerves: No cranial nerve deficit. Motor: No weakness. Psychiatric: Mood and Affect: Mood normal. Behavior: Behavior normal. ANAND-28 (ESR): 5.35 (High disease activity) Assessment/Plan 1. 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 DAS28 (ESR) 5.08 --> 5.35 MSK US today with mild to moderate synovitis. Now she failed Enbrel. She feels better was more effective. Resume rinvoq and prednisone 2.5 mg daily. Failed methotrexate 15 mg mg weekly and xeljanz. She failed treatment with Xeljanz, Humira and Remicade, she developed an infection after actemra 2 infusions. Now failed enbrel. 2. Secondary fibromyalgia. This has been going on for at least 5 years, causing significant pain all over her joints. Cont Neurontin to 2400 mg daily. She had weight gain with cymbalta. 15 out of 18 tender spots suggestive for fibromyalgia. She failed treatment with lyrica before. Aquatic physical therapy. 3. Rinvoq use - Labs ESR, CRP, CBC, CMP. 4. Rinvoq use. no history of diverticulosis, she is aware of the risk of bowel perforation. 5. Celebrex use. She had been using it for 8 years, recently it has been denied by her insurance. She needs to go back on it. [facility] 03-27-2023 Note Prior Authorization for Enbrel has been approved 03/28/2023-06/25/2023. Case ID/Authorization Number: [id number] Going through for a $0 copay, I called the patient and she would like us to mail that to her. Lexi Jacques [facility] 03/29/23 10:49 AM [facility] 03-27-2023 Note Specialty Pharmacy N ote: Enbrel Mini Cartridge Supervising Physician & Clinic:?? Dr. Papito Steward, [facility] Rheumatology Marisol Ramirez is a 52 y.o. [...] Xeljanz (05/2016-12/2019) Baclofen (03/2015-06/2018) Humira (06/2014-11/2014) Remicade ([id number]) Actemra (unknown dates) No pertinent drug interactions [...] using labs from 11/2022. Awaiting determination.? Martha Wilson PharmD, [facility] Outpatient Clinical Pharmacist [facility] [id number] 03/27/23 4:04 PM [facility] 03-27-2023 Note -------- Attestation signed by Papito [...] by Lakeisha Dhaliwal, MS-[address] Ste[address] [facility] 03-27-2023 Note -------- Attestation signed by Papito [...] was present and supervised the procedure -------- [place] Protocol Documentation for Invasive Procedures List all [...] 2 patient identifiers) Media Information [place] [facility] [place] Clinical Unknown Left wrist 03/27/2023 11:37 Attached To: Follow-Up on 03/27/23 with Papito Steward MD Source Information Kenneth Dan MD [facility] Media Information [place] [facility] [place]: Clinical Unknown Right 3rd mcp 03/27/2023 11:37 Attached To: Follow-Up on 03/27/23 with Papito Steward MD Source Information Kenneth Dan MD [facility] Media Information [place] [facility] [place]: Clinical Unknown Right extensors 03/27/2023 11:36 Attached To: Follow-Up on 03/27/23 with Papito Steward MD Source Information Kenneth Dan MD [facility] Media Information [place] [facility] [place]: Clinical Unknown Right wrist 03/27/2023 11:36 Attached To: Follow-Up on 03/27/23 with Papito Steward MD Source Information Kenneth Dan MD [facility] Media Information [place] [facility] [place]: Clinical Unknown Right wrist 03/27/2023 11:36 Attached To: Follow-Up on 03/27/23 with Papito Steward MD Source Information Kenneth Dan MD [facility] 11-21-2022 Note -------- Attestation signed by Papito [...] - Patient's pain remain at baseline on [id number] mg extended release - Continue Rinvoq 15 [...] Olvera Note Written by: Cadence Martinez, MS4 [facility] Summary Purpose Family History No Family History Records FoundNo Family History Records FoundNo Family History Records Found Advance Directives No Advanced Directives Records FoundNo Advanced Directives Records FoundNo Advanced Directives Records Found Additional Source Comments INFORMATION SOURCE (unrecogn ized section and content) DATE CREATED AUTHOR 05/29/2019 [facility] DATE CREATED AUTHOR AUTHOR'S ORGANIZ ATION 06/27/2022 [facility] DATE CREATED AUTHOR AUTHOR'S ORGANIZ ATION 07/11/2023 [facility] FOR RECORDS PERTAINING TO PATIENTS WHO ARE [...] BE BASED ON THE PRIMARY CLINICAL RECORDS. [employer] provides no warranty or guarantee of the accuracy or completeness of information in this document.
--- NOTE | 2023-07-17 12:09 | XR_ITS ---
[facility] [place] [id number] Patient Name: JANNETTE MORELOS MRN: [id number] date: 1970 Sex: F Assigned Patient Location: [facility] Current Patient Location: Accession/Order Number: [id number] Exam Date: 07/17/2023 12:15 Report Date: 07/18/2023 08:23 At the request of: LASHAUN HILL Procedure: XR cervical spine 5V EXAMINATION: XR cervical spine 5V HISTORY: Cervical Paraspinal Muscle Spasm M62.838 ; chronic neck pain; left arm pain, numbness, tingling COMPARISON: No relevant comparison available. FINDINGS: BONES: Uncovertebral joint spurring and mild degenerative degenerative facet arthropathy encroaching on the neural foramen causing moderate narrowing at C4-5 and C6-7. DISC SPACES: Moderate narrowing C6-7. PARASPINOUS: Negative. No paraspinous abnormality is seen. OTHER: Negative. XR/XR cervical spine 5V IMPRESSION: 1. Degenerative changes of cervical spine resulting in bone encroachment on the neural foramen at least involving C4-5 and C6-7. Consider MRI for further evaluation. Electronically authenticated by: HUSAM MIRANDA Date: 07/18/2023 08:23
== END 2023-07-17 11:58 | disposition home or self-care (01) ==
LOC: RAD 11:58
PROVIDERS: PCP Family Medicine; Visit Provider Nurse Practitioner Adult Health
DX: M62.838 Other muscle spasm (principal); M50.30 Other cervical disc degeneration, unspecified cervical region
CPT/HCPCS: 72050

== ENCOUNTER 2024-04-30 11:24 | Outpatient (OUT) | payer OTHER, SELFPAY ==
--- OUTSIDE RECORDS SUMMARY | 2024-04-30 11:40 | XMS_ITS | CCD ---
Author Organization [facility] Care Team Providers Care Managing Consultant Clinical Professor Name Role Phone [facility] Admitting Unava ilable [facility] Attending Unava ilable [facility] Primary Care Unava ilable [facility] Consulting Unava ilable MISC, DR GOODE Admitting Unavailable MISC, DR GOODE Attending Unavailable MISC, DR GOODE Primary Care Unavailable MISC, DR GOODE Consulting Unavailable WINDNAGEL, DR LASHAUN Joaquin Admitting Unavaila ble WINDNAGEL, DR LASHAUN Joaquin Attending Unavaila ble [facility] Primary Care Unava ilable WINDNAGEL, DR LASHAUN Joaquin Consulting Unavaila ble MISC, DR GOODE Admitting Unavailable MISC, DR GOODE Attending Unavailable MISC, DR GOODE Primary Care Unavailable WINDNAGELLASHAUN Attending Unavailable WINDNAGEL, LASHAUN Joaquin Attending Unavailable PAPITO STEWARD I Attending Unavailable PAPITO STEWARD I Attending Unavailable Allergies Allergy Classification Reported Allergen(s) Allergy Type Date of Onset Reaction(s) Facility (2 sources) Acetaminophen / HYDROcodone Drug Allergy 3 [facility] Repository (2 sources) Acetaminophen / oxyCODONE Drug Allergy 3 [facility] Repository (2 sources) Acetaminophen / oxyCODONE Drug Allergy 3 [facility] Repository (1 source) Acetaminophen / HYDROcodone; Translations: [HYDROCODONE-ACET AMINOPHEN] Drug Allergy 4 [facility] Repository (1 source) Acetaminophen / oxyCODONE; Translations: [OXYCODONE-ACETAM INOPHEN] Drug Allergy 4 [facility] Repository (1 source) diazePAM; Translations: [DIAZEPAM] Drug Allergy 2 [facility] Repository (1 source) HYDROcodone; Translations: [HYDROCODONE] Drug Allergy 2 [facility] Repository (1 source) oxyCODONE; Translations: [OXYCODONE] Drug Allergy 2 [facility] Repository (1 source) BEE VENOM PROTEIN (HONEY BEE); Translations: [BEE VENOM PROTEIN (HONEY BEE)] Propensity to adverse reactions to drug (disorder) 1 [facility] Repository (1 source) ADHESIVE TAPE-SILICONES; Translations: [ADHESIVE TAPE-SILICONES] Propensity to adverse reactions to drug (disorder) 1 [facility] Repository Problems Active Problems Problem [...] 03-27-2023 Episodic Other aftercare (2 sources) Other [facility] (current) drug therapy; Translations: [Other terminal manager (current) drug therapy] Onset: 03-27-2023 Episodic Results Test Name Value Interpretation Reference Range Facil ity 36on 01-23-2024 36 Last Visit: 06/26/23 No Upcoming Visit Normal [facility] Refillon 01-23-2024 Refill [id number] Asia Ramirez 1970 F Date Provider Department Center 01/23/2024 [place] [facility] Marisol Heal No family history on file Reason for Visit and Comments: Med Refill [[id number]] [facility] 36on 12-20-2023 36 Last Visit: 06/26/23 Upcoming Visit: 12/27/23 [facility] Refillon 12-19-2023 Refill [id number] Palmer E 1970 F Date Provider Department [place] 12/19/2023 [place] [facility] Marisol Heal No family history on file Reason for Visit and Comments: Med Refill [[id number]] [facility] 36on 09-23-2023 36 Last visit: 06/26/23 Next visit: 10/11/23 CBC/CMP: 03/27/23 [facility] Refillon 09-20-2023 Refill [id number] Palmer E 1970 F Date Provider Department [place] 09/20/2023 [place] [facility] Marisol Heal No family history on file Reason for Visit and Comments: Med Refill [[id number]] [facility] Orders Onlyon 06-28-2023 Orders Only [id number] Palmer E 1970 F Date Provider Department [place] 06/28/2023 [id number], MADY [facility] Marisol Heal No family history on file [facility] Orders Onlyon 06-27-2023 Orders Only [id number] Palmer E 1970 F Date Provider Department Center 06/27/[id number]-UBVYEWFROSALINDA URIOSTEGUIIEL [facility] Marisol Heal No family history on file [facility] Documentationon 06-26-2023 Documentation [id number] Palmer E 1970 F Date Provider Department [place] 06/26/2023 [place] [facility] Marisol Heal No family history on file Reason for Visit and Comments: Specialty Pharmacy Note Rinvoq [Other] [facility] Follow-Upon 06-26-2023 Follow-Up [id number] TamyAsia jud Tello 1970 F Date Provider Department Center 06/26/2023 Katharina-PAPITO STEWARD I [facility] Marisol Heal No family history on file Level of Service:51684 [place] OFFICE/OUTPATIENT ESTABLISHED MOD MDM 30 MIN (GC) Reason for Visit and Comments: Follow-up [[id number]] - 3 mth follow up Normal [facility] CBC WITH AUTO DIFFERENTIALon 03-27-2023 Basophils (Bld) [#/Vol] 0.03 10*3/uL Normal 0.00-0.20 [facility] Comment on above: Performed By: #### L [id number] ####[facility] (BEAKER)[address] [place] [address] Basophils/100 WBC (Bld) 0.4 % Normal 0.0-1.0 [facility] Comment on above: Performed By: #### L [id number] ####[facility] (BEAKER)[address] [place] [address] Eosinophils (Bld) [#/Vol] 0.11 10*3/uL Normal 0.00-0.50 [facility] Comment on above: Performed By: #### L [id number] ####[facility] (BEAKER)[address] [place] [address] Eosinophils/100 WBC (Bld) 1.6 % Normal 0.0-6.0 [facility] Comment on above: Performed By: #### L [id number] ####[facility] (BEAKER)[address] [place] [address] Erythrocyte distribution width (RBC) [Ratio] 12.5 % Normal 11.5-15.0 [facility] Comment on above: Performed By: #### L [id number] ####[facility] (BEAKER)[address] [place] [address] ERYTHROCYTE MEAN CORPUSCULAR HEMOGLOBIN CONCENTRATION (G/DL) BY AUTOMATED 31.0 g/dL Low 32.0-35.0 [facility] Comment on above: Performed By: #### L [id number] ####[facility] (BEAKER)[address] [place] [address] Hematocrit (Bld) [Volume fraction] 40.0 % Normal 36.0-48.0 [facility] Comment on above: Performed By: #### L [id number] ####[facility] (BEAKER)[address] [place] [address] Hemoglobin (Bld) [Mass/Vol] 12.4 g/dL Normal 12.0-15.0 [facility] Comment on above: Performed By: #### L [id number] ####[facility] (BEAKER)[address] [place] [address] Immature granulocytes (Bld) [#/Vol] 0.03 10*3/uL Normal 0.00-0.20 [facility] Comment on above: Performed By: #### L [id number] ####[facility] (BEAKER)[address] [place] [address] Immature granulocytes/100 WBC (Bld) 0.4 % Normal 0.0-1.0 [facility] Comment on above: Performed By: #### L [id number] ####[facility] (BEAKER)[address] [place] [address] Lymphocytes (Bld) [#/Vol] 1.89 10*3/uL Normal 1.20-4.00 [facility] Comment on above: Performed By: #### L [id number] ####[facility] (BEAKER)[address] [place] [address] Lymphocytes/100 WBC (Bld) 27.3 % Normal 20.0-45.0 [facility] Comment on above: Performed By: #### L [id number] ####[facility] (BEAKER)[address] [place] [address] MCH (RBC) [Entitic mass] 29.2 pg Normal 27.0-33.0 [facility] Comment on above: Performed By: #### L [id number] ####[facility] (BEAKER)[address] [place] [address] MCV (RBC) [Entitic vol] 94.3 fL Normal 82.0-98.0 [facility] Comment on above: Performed By: #### L [id number] ####[facility] (BEAKER)[address] [place] [address] Monocytes (Bld) [#/Vol] 0.36 10*3/uL Normal 0.10-1.00 [facility] Comment on above: Performed By: #### L [id number] ####[facility] (BEAKER)[address] [place] [address] Monocytes/100 WBC (Bld) 5.2 % Normal 5.0-12.0 [facility] Comment on above: Performed By: #### L [id number] ####[facility] (BEAKER)[address] [place] [address] Neutrophils (Bld) [#/Vol] 4.51 10*3/uL Normal 1.60-7.60 [facility] Comment on above: Performed By: #### L [id number] ####[facility] (BEAKER)[address] [place] [address] Neutrophils/100 WBC (Bld) 65.1 % Normal 40.0-72.0 [facility] Comment on above: Performed By: #### L [id number] ####[facility] (BEAKER)[address] [place] [address] NRBC (PER 100 WBCS) BY AUTOMATED COUNT 0.0 % Normal 0 [facility] Comment on above: Performed By: #### L [id number] ####[facility] (BEAKER)[address] [place] [address] PLATELETS (10*3/UL) IN BLOOD AUTOMATED COUNT 298 10*3/uL Normal 150-400 [facility] Comment on above: Performed By: #### L [id number] ####[facility] (BEAKER)[address] [place] [address] RBC (Bld) [#/Vol] 4.24 10*6/uL Normal 3.80-5.00 [facility] Comment on above: Performed By: #### L [id number] ####[facility] ([facility])[address] [place] [address] WBC (Bld) [#/Vol] 6.93 10*3/uL Normal 4.00-10.60 [facility] Comment on above: Performed By: #### L [id number] ####[facility] ([facility])[address] [place] [address] COMPREHENSIVE METABOLIC PANE Edvin 03-27-2023 Albumin [Mass/Vol] 4.4 g/dL Normal 3.5-5.7 [facility] Comment on above: Performed By: #### L [id number] #### [facility] ([facility]) [address] [place] [address] ALP [Catalytic activity/Vol] 93 U/L Normal 34-104 [facility] Comment on above: Performed By: #### L [id number] #### [facility] ([facility]) [address] [place] [address] ALT [Catalytic activity/Vol] 46 U/L Normal 7-52 [facility] Comment on above: Performed By: #### L [id number] #### [facility] ([facility]) [address] [place] [address] Anion gap [Moles/Vol] 13 mmol/L Normal 7-20 [facility] Comment on above: Performed By: #### L [id number] #### [facility] ([facility]) [address] [place] [address] AST [Catalytic activity/Vol] 75 U/L High 13-39 [facility] Comment on above: Performed By: #### L [id number] #### [facility] ([facility]) [address] [place] [address] Bilirubin [Mass/Vol] 0.3 mg/dL Normal 0.3-1.0 [facility] Comment on above: Performed By: #### L [id number] #### [facility] (BEAKER) [address] [place] [address] Calcium [Mass/Vol] 9.2 mg/dL Normal 8.6-10.3 [facility] Comment on above: Performed By: #### L [id number] #### [facility] (BEAKER) [address] [place] [address] Chloride [Moles/Vol] 100 mmol/L Normal 98-107 [facility] Comment on above: Performed By: #### L [id number] #### [facility] ([facility]) [address] [place] [address] CO2 [Moles/Vol] 28 mmol/L Normal 21-31 [facility] Comment on above: Performed By: #### L [id number] #### [facility] ([facility]) [address] [place] [address] Creatinine [Mass/Vol] 0.79 mg/dL Normal 0.60-1.20 [facility] Comment on above: Performed By: #### L [id number] #### [facility] ([facility]) [address] [place] [address] GLOMERULAR FILTRATION RATE ML/MIN/1.73 SQ M.PREDICTED 90.5 mL/min/1.73m*2 Normal >60.0 [facility] Comment on above: Result Comment: [facility]???s estimated glomerular filtration rate (eGFR) [...] of individuals. Performed By: #### L [id number] #### [facility] [address] [place] [address] Glucose [Mass/Vol] 140 mg/dL High 70-100 [facility] Comment on above: Performed By: #### L [id number] #### [facility] ([facility]) [address] [place] [address] Potassium [Moles/Vol] 4.6 mmol/L Normal 3.5-5.1 [facility] Comment on above: Performed By: #### L [id number] #### [facility] ([facility]) [address] [place] [address] Protein [Mass/Vol] 7.9 g/dL Normal 6.0-8.3 [facility] Comment on above: Performed By: #### L [id number] #### [facility] ([facility]) [address] [place] [address] Sodium [Moles/Vol] 136 mmol/L Normal 136-145 [facility] Comment on above: Performed By: #### L [id number] #### [facility] ([facility]) [address] [place] [address] Urea nitrogen [Mass/Vol] 19 mg/dL Normal 7-25 [facility] Comment on above: Performed By: #### L [id number] #### [facility] ([facility]) [address] [place] [address] UREA NITROGEN/CREATININE (MASS RATIO) IN SER/PLAS 24.1 Normal [facility] Comment on above: Performed By: #### L [id number] #### [facility] ([facility]) [address] [place] [address] Documentationon 03-27-2023 Documentation [id number] Asia Ramirez 1970 F Date Provider Department Center 03/27/2023 MARTHA SOSA [facility] R[facility]UM Marisol Heal No family history on file Reason for Visit and Comments: Specialty Pharmacy Note Enbrel [Other] Normal [facility] Follow-Upon 03-27-2023 Follow-Up [id number] Asia Ramirez 1970 F Date Provider Department Center 03/27/2023 215-PAPITO STEWARD I [facility] Marisol Heal No family history on file Level of Service:[id number] [place] OFFICE/OUTPATIENT ESTABLISHED MOD MDM 30 MIN () Reason for Visit and Comments: Follow-up [[id number]] Normal [facility] HEPATITIS B CORE ANTIBODY, T OTALon 03-27-2023 HEPATITIS B VIRUS CORE AB (PRESENCE) IN SER/PLAS BY IMM Non-Reactive Normal Nonreactive [facility] Comment on above: Performed By: #### L [id number] ####[facility] ([facility])[address] [place] [address] HEPATITIS B SURFACE ANTIGENo n 03-27-2023 HEPATITIS B VIRUS SURFACE AG PRESENCE IN SERUM Non-Reactive Normal Nonreactive [facility] Comment on above: Performed By: #### L [id number] ####[facility] ([facility])[address] [place] [address] HEPATITIS C ANTIBODYon 03-27 HEPATITIS C VIRUS AB PRESENCE IN SERUM Non-Reactive Normal Nonreactive [facility] Comment on above: Performed By: #### L [id number] #### [facility] ([facility]) [address] [place] [address] QUANTIFERON TB GOLDon 2023 MITOGEN MINUS NIL 6.16 IU/mL Normal [facility] Comment on above: Performed By: #### L [id number] #### [facility] ([facility]) [address] [place] [address] NIL 0.05 IU/mL Normal [facility] Comment on above: Performed By: #### L [id number] #### [facility] ([facility]) [address] [place] [address] QUANTIFERON - TB GOLD TEST Negative Normal Negative [facility] Comment on above: Result Comment: Jomar tiferon TB Gold Interpretation (IU/mL): NEGATIVE: M. tuberculosis infection not likely. Nil: <=8.0 TB1 Antigen minus Nil (BY3LT-FRH): <0.35 OR >=0.35; and <25% of Nil value. TB2 Antigen minus Nil (PK3PV-OBK): <0.35 OR >=0.35; and <25% of Nil value. Performed By: #### L [id number] #### [facility] ([facility]) [address] [place] [address] TB1 AG 0.05 IU/mL Normal [facility] Comment on above: Performed By: #### L [id number] #### [facility] ([facility]) [address] [place] [address] TB1 AG MINUS NIL 0.00 IU/mL Normal [facility] Comment on above: Performed By: #### L [id number] #### [facility] ([facility]) [address] [place] [address] TB2 AG 0.04 IU/mL Normal [facility] Comment on above: Performed By: #### L [id number] #### [facility] ([facility]) [address] [place] [address] TB2 AG MINUS NIL -0.01 IU/mL Normal [facility] Comment on above: Performed By: #### L [id number] #### [facility] ([facility]) [address] [place] [address] SEDIMENTATION RATEon 024 SEDIMENTATION RATE, ERYTHROCYTE 43 mm/hr High <=20 [facility] Comment on above: Performed By: #### L [id number] #### [facility] ([facility]) [address] [place] [address] 25-HYDROXY VIT D (D2+D3 FRA ) LC/MS-MSon 06-26-2022 25-Hydroxy, Vitamin D 11 ng/mL Critically low [facility] Comment on above: Result Comment: Refe astrid Range: All Ages: Target levels 30 - 100 Performed By: #### V ITDLC #### [facility] [address] [place] [address] Dr. Asia Potter 25-Hydroxy, Vitamin D-2 1.0 ng/mL Normal [facility] Comment on above: Result Comment: This test was developed and its performance characteristics determined by [facility]. It has not been cleared or approved by the Food and Drug Administration. Performed By: #### V ITDLC #### [facility] [address] [place] [address] Dr. Asia Potter 25-Hydroxy, Vitamin D-3 10 ng/mL Normal [facility] Comment on above: Result Comment: This test was developed and its performance characteristics determined by [facility]. It has not been cleared or approved by the Food and Drug Administration. Performed By: #### V ITDLC #### [facility] [address] [place] [address] Dr. Asia Potter PROF CHEM 8 (BAS METB)on Anion gap [Moles/Vol] 16.5 mmol/L Normal [facility] Comment on above: Performed By: #### B MP #### [facility] [address] [place] [address] Dr. Asia Potter Calcium [Mass/Vol] 10.0 mg/dL Normal 8.5-10.1 [facility] Comment on above: Performed By: #### B MP #### [facility] [address] [place] [address] Dr. Asia Potter Chloride [Moles/Vol] 98 mmol/L Normal 98-107 [facility] Comment on above: Performed By: #### B MP #### [facility] [address] [place] [address] Dr. Asia Potter CO2 [Moles/Vol] 28.3 mmol/L Normal 21.0-32.0 [facility] Comment on above: Performed By: #### B MP #### [facility] [address] [place] [address] Dr. Asia Potter Creatinine [Mass/Vol] 1.18 mg/dL Critically high 0.55-1.02 [facility] Comment on above: Performed By: #### B MP #### [facility] [address] [place] [address] Dr. Asia Potter EGFR-AF TONGAN 59 mL/min/1.73m2 Critically low >=60 [facility] Comment on above: Performed By: #### B MP #### [facility] [address] [address] [address] Asia Potter EGFR-NON AF TONGAN 48 mL/min/1.73m2 Critically low >=60 [facility] Comment on above: Performed By: #### B MP #### [facility] [address] [address] [address] Asia Potter Glucose [Mass/Vol] 238 mg/dL Critically high 74-106 [facility] Comment on above: Performed By: #### B MP #### [facility] [address] [address] [address] Asia Potter Potassium [Moles/Vol] 4.8 mmol/L Normal 3.5-5.1 [facility] Comment on above: Performed By: #### B MP #### [facility] [address] [address] [address] Asia Potter Sodium [Moles/Vol] 138 mmol/L Normal 136-145 [facility] Comment on above: Performed By: #### B MP #### [facility] [address] [address] [address] Asia Potter Urea nitrogen [Mass/Vol] 30.0 mg/dL Critically high 7.0-18.0 [facility] Comment on above: Performed By: #### B MP #### [facility] [address] [address] [address] Asia Potter Urea nitrogen/Creatinine [Mass ratio] 25.4 mg/mg Normal [facility] Comment on above: Performed By: #### B MP #### [facility] [address] [address] [address] Asia Potter TSHon 06-20-2022 TSH 2.802 uIU/mL Normal 0.358-3.740 [facility] Comment on above: Performed By: #### T SH #### [facility] [address] [address] [address] Asia Potter VIT B12 AND FOLATEon 023 Cobalamin (Vitamin B12) [Mass/Vol] 369.0 pg/mL Normal 193.0-986.0 [facility] Comment on above: Performed By: #### B 12FOL #### [facility] [address] [place] [address] Dr. Asia Potter FOLATE 23.90 ng/mL Normal 8.60-58.90 [facility] Comment on above: Performed By: #### B 12FOL #### [facility] [address] [place] [address] Dr. Asia Potter CBC AUTO DIFFon 01-04-2022 BASO # 0.0 103/ul Normal 0.0-0.1 [facility] Comment on above: Performed By: #### C BC #### [facility] [address] [place] [address] Dr. Asia Potter Basophils/100 WBC (Bld) 0.3 % Normal 0.2-2.0 [facility] Comment on above: Performed By: #### C BC #### [facility] [address] [place] [address] Dr. Asia Potter EO # 0.2 103/ul Normal 0.0-0.7 [facility] Comment on above: Performed By: #### C BC #### [facility] [address] [place] [address] Dr. Asia Potter Eosinophils/100 WBC (Bld) 2.1 % Normal 0.9-7.0 [facility] Comment on above: Performed By: #### C BC #### [facility] [address] [place] [address] Dr. Asia Potter Erythrocyte distribution width (RBC) [Ratio] 13.4 % Normal 11.0-15.0 [facility] Comment on above: Performed By: #### C BC #### [facility] [address] [place] [address] Dr. Asia Potter Hematocrit (Bld) [Volume fraction] 37.2 % Normal 36.0-48.0 [facility] Comment on above: Performed By: #### C BC #### [facility] [address] [place] [address] Dr. Asia Potter Hemoglobin (Bld) [Mass/Vol] 11.6 g/dL Critically low 12.0-16.0 [facility] Comment on above: Performed By: #### C BC #### [facility] [address] [place] [address] Dr. Asia Potter IG # 0.06 10e3/ul Critically high 0.00-0.03 [facility] Comment on above: Performed By: #### C BC #### [facility] [address] [place] [address] Dr. Asia Potter IG % 0.8 % Critically high 0.0-0.5 [facility] Comment on above: Performed By: #### C BC #### [facility] [address] [place] [address] Dr. Asia Potter LYMPH # 1.7 103/ul Normal 1.2-3.8 [facility] Comment on above: Performed By: #### C BC #### [facility] [address] [place] [address] Dr. Asia Potter Lymphocytes/100 WBC (Bld) 22.3 % Normal 20.5-60.0 [facility] Comment on above: Performed By: #### C BC #### [facility] [address] [place] [address] Dr. Asia Potter MANUAL DIFF REQ NO Normal [facility] Comment on above: Performed By: #### C BC #### [facility] [address] [place] [address] Dr. Asia Potter MCH (RBC) [Entitic mass] 29.1 pg Normal 26.7-34.0 [facility] Comment on above: Performed By: #### C BC #### [facility] [address] [place] [address] Dr. Asia Potter MCHC (RBC) [Mass/Vol] 31.2 g/dL Normal 29.9-35.2 [facility] Comment on above: Performed By: #### C BC #### [facility] [address] [place] [address] Dr. Asia Potter MCV (RBC) [Entitic vol] 93.5 fL Normal 81.0-99.0 [facility] [facility] Comment on above: Performed By: #### C BC #### [facility] [address] [address] [address] Asia Potter MONO # 0.4 103/ul Normal 0.3-0.8 [facility] Comment on above: Performed By: #### C BC #### [facility] [address] [address] [address] Asia Potter Monocytes/100 WBC (Bld) 5.2 % Normal 1.7-12.0 [facility] Comment on above: Performed By: #### C BC #### [facility] [address] [address] [address] Asia Potter NEUT # 5.4 103/ul Normal 1.4-6.5 [facility] Comment on above: Performed By: #### C BC #### [facility] [address] [place] [address] Dr. Asia Potter Neutrophils/100 WBC (Bld) 69.3 % Normal 43.0-75.0 [facility] Comment on above: Performed By: #### C BC #### [facility] [address] [address] [address] Asia Potter Platelet mean volume (Bld) [Entitic vol] 9.4 fL Critically low 9.5-13.5 [facility] Comment on above: Performed By: #### C BC #### [facility] [address] [place] [address] Dr. Asia Potter PLT 316 103/ul Normal 150-[address] [facility] Comment on above: Performed By: #### C BC #### [facility] [address] [address] [address] Asia Potter RBC 3.98 106/ul Critically low 4.20-5.40 [facility] Comment on above: Performed By: #### C BC #### [facility] [address] [address] [address] Asia Potter WBC 7.8 103/ul Normal 4.0-11.[address] [facility] Comment on above: Performed By: #### C BC #### [facility] [address] [address] [address] Asia Potter GLYCOHEMOGLOBIN A1Con 2021 ADA RECOMMENDATION SEE BELOW Normal [facility] Comment on above: Result Comment: ADA RECOMMENDED LIMIT 4.0 - 6.0 ADA THERAPEUTIC TARGET < 7.0 ACTION SUGGESTED > 7.0 Performed By: #### A 1C #### [facility] [address] [address] [address] Asia Potter Glucose [Mass/Vol] 174 mg/dL Normal [facility] Comment on above: Performed By: #### A 1C #### [facility] [address] [address] [address] Asia Potter HbA1c (Bld) [Mass fraction] 7.7 % Critically high 4.5-6.2 [facility] Comment on above: Performed By: #### A 1C #### [facility] [address] [place] [address] Dr. Asia Potter LIPID PROFILEon 01-04-2022 CHOL-HDL RATIO NORM SEE BELOW Normal [facility] Comment on above: Result Comment: 3.3 - 4.4 LOW RISK 4.4 - 7.1 AVERAGE RISK 7.1 - 11.0 MODERATE RISK >11.0 HIGH RISK Performed By: #### L IPID, TSH, CMP #### [facility] [address] [place] [address] Dr. Asia Potter Cholesterol [Mass/Vol] 161 mg/dL Normal <=200 [facility] Comment on above: Performed By: #### L IPID, TSH, CMP #### [facility] [address] [place] [address] Dr. Asia Potter Cholesterol in HDL [Mass/Vol] 37 mg/dL Critically low 40-60 [facility] Comment on above: Performed By: #### L IPID, TSH, CMP #### [facility] [address] [address] [address] Asia Potter Cholesterol in LDL [Mass/Vol] 94.8 mg/dL Normal [facility] Comment on above: Performed By: #### L IPID, TSH, CMP #### [facility] [address] [address] [address] Asia Potter Cholesterol.total/C holesterol in HDL [Mass ratio] 4.4 {ratio} Normal [facility] Comment on above: Performed By: #### L IPID, TSH, CMP #### [facility] [address] [address] [address] Asia Potter HDL NORMAL > or = 60 mg/dl - LO W CARDIOVASCULAR RISK <40 mg/dl - HIGH CARDIOVASCULAR RISK Normal [facility] Comment on above: Performed By: #### L IPID, TSH, CMP #### [facility] [address] [address] [address] Asia Potter LDL CALC NORMAL SEE BELOW Normal [facility] Comment on above: Result Comment: <100 mg/dl OPTIMAL 100 - 129 mg/dl NEAR OR ABOVE OPTIMAL 130 - 159 mg/dl BORDERLINE HIGH 160 - 189 mg/dl HIGH >190 mg/dl VERY HIGH Performed By: #### L IPID, TSH, CMP #### [facility] [address] [address] [address] Asia Potter Triglyceride [Mass/Vol] 146 mg/dL Normal <=150 [facility] Comment on above: Performed By: #### L IPID, TSH, CMP #### [facility] [address] [place] [address] Dr. Asia Potter VLDL CALC 29.2 mg/dL Normal [facility] Comment on above: Performed By: #### L IPID, TSH, CMP #### [facility] [address] [address] [address] Asia Potter PROF 14(COMP METB)on 022 Albumin [Mass/Vol] 3.7 g/dL Normal 3.4-5.0 [facility] Comment on above: Performed By: #### L IPID, TSH, CMP #### [facility] [address] [address] [address] Asia Potter Albumin/Globulin [Mass ratio] 0.9 {ratio} Normal [facility] Comment on above: Performed By: #### L IPID, TSH, CMP #### [facility] [address] [address] [address] Asia Potter ALP [Catalytic activity/Vol] 90 U/L Normal 46-116 [facility] Comment on above: Performed By: #### L IPID, TSH, CMP #### [facility] [address] [address] [address] Asia Potter ALT [Catalytic activity/Vol] 53 U/L Normal 14-59 [facility] Comment on above: Performed By: #### L IPID, TSH, CMP #### [facility] [address] [address] [address] Asia Potter Anion gap [Moles/Vol] 11.8 mmol/L Normal [facility] Comment on above: Performed By: #### L IPID, TSH, CMP #### [facility] [address] [address] [address] Asia Potter AST [Catalytic activity/Vol] 42 U/L Critically high 15-37 [facility] Comment on above: Performed By: #### L IPID, TSH, CMP #### [facility] [address] [address] [address] Asia Potter Bilirubin [Mass/Vol] 0.2 mg/dL Normal 0.2-1.0 [facility] Comment on above: Performed By: #### L IPID, TSH, CMP #### [facility] [address] [address] [address] Asia Potter Calcium [Mass/Vol] 9.3 mg/dL Normal 8.5-10.1 [facility] Comment on above: Performed By: #### L IPID, TSH, CMP #### [facility] [address] [address] [address] Asia Potter Chloride [Moles/Vol] 100 mmol/L Normal 98-107 [facility] Comment on above: Performed By: #### L IPID, TSH, CMP #### [facility] [address] [address] [address] Asia Potter CO2 [Moles/Vol] 27.5 mmol/L Normal 21.0-32.0 [facility] Comment on above: Performed By: #### L IPID, TSH, CMP #### [facility] [address] [address] [address] Asia Potter Creatinine [Mass/Vol] 0.77 mg/dL Normal 0.55-1.02 [facility] Comment on above: Performed By: #### L IPID, TSH, CMP #### [facility] [address] [address] [address] Asia Potter EGFR-AF TONGAN >60 Normal >=60 [facility] Comment on above: Performed By: #### L IPID, TSH, CMP #### [facility] [address] [address] [address] Asia Potter EGFR-NON AF TONGAN >60 Normal >=60 [facility] Comment on above: Performed By: #### L IPID, TSH, CMP #### [facility] [address] [place] [address] Dr. Asia Potter Globulin (S) [Mass/Vol] 4.1 g/dL Normal [facility] Comment on above: Performed By: #### L IPID, TSH, CMP #### [facility] [address] [place] [address] Dr. Asia Potter Glucose [Mass/Vol] 168 mg/dL Critically high 74-106 [facility] Comment on above: Performed By: #### L IPID, TSH, CMP #### [facility] [address] [address] [address] Asia Potter Potassium [Moles/Vol] 4.3 mmol/L Normal 3.5-5.1 [facility] Comment on above: Performed By: #### L IPID, TSH, CMP #### [facility] [address] [address] [address] Asia Potter Protein [Mass/Vol] 7.8 g/dL Normal 6.4-8.2 [facility] Comment on above: Performed By: #### L IPID, TSH, CMP #### [facility] [address] [place] [address] Dr. Asia Potter Sodium [Moles/Vol] 135 mmol/L Critically low 136-145 [facility] Comment on above: Performed By: #### L IPID TSH, CMP #### [facility] [address] [address] [address] Asia Potter Urea nitrogen [Mass/Vol] 17.0 mg/dL Normal 7.0-18.0 [facility] Comment on above: Performed By: #### L IPID TSH, CMP #### [facility] [address] [address] [address] Asia Potter Urea nitrogen/Creatinine [Mass ratio] 22.1 mg/mg Normal [facility] Comment on above: Performed By: #### L IPID TSH, CMP #### [facility] [address] [place] [address] Dr. Asia Potter TSHon 01-04-2022 TSH 2.411 uIU/mL Normal 0.358-3.740 [facility] Comment on above: Performed By: #### L IPID TSH, CMP #### [facility] [address] [place] [address] Dr. Asia Potter CBC W/DIFFon 06-06-2018 ABS BASOPHILS 0.0 10*3/uL Normal 0.0-0.2 [facility] Comment on above: Performed By: #### 5 0103, 53450 #### [facility] [address] ABS IMM GRANS 0.0 10*3/uL Normal 0.0-0.2 [facility] Comment on above: Performed By: #### 5 0103, [id number] #### [facility] [address] [place] [address], [facility] ABS NEUTROPHILS 5.1 10*3/uL Normal 1.6-7.6 [facility] Comment on above: Performed By: #### 5 0103, 09188 #### [facility] [address] [place] [address], [facility] Basophils/100 WBC (Bld) 0.3 % Normal 0.0-1.0 [facility] Comment on above: Performed By: #### 5 102, 43200 #### [facility] [address] Eosinophils (Bld) [#/Vol] 0.2 10*3/uL Normal 0.0-0.5 [facility] Comment on above: Performed By: #### 5 102, 54151 #### [facility] [address] [place] [address], [facility] Eosinophils/100 WBC (Bld) 3.4 % Normal 0.0-6.0 [facility] Comment on above: Performed By: #### 5 102, 47028 #### [facility] [address] Erythrocyte distribution width (RBC) [Ratio] 13.2 % Normal 11.5-15.0 [facility] Comment on above: Performed By: #### 5 102, 54535 #### [facility] [address] Hematocrit (Bld) [Volume fraction] 36.3 % Normal 36.0-45.0 [facility] Comment on above: Performed By: #### 5 102, 47273 #### [facility] [address] Hemoglobin (Bld) [Mass/Vol] 11.6 g/dL Low 12.0-15.0 [facility] Comment on above: Performed By: #### 102, 57390 #### [facility] [address] [place] [address], [facility] IMMATURE GRANS 0.6 % Normal 0.0-1.0 [facility] Comment on above: Performed By: #### 102, 37665 #### [facility] [address] Lymphocytes (Bld) [#/Vol] 1.0 10*3/uL Low 1.2-4.0 [facility] Comment on above: Performed By: #### 5 102, 29966 #### [facility] [address] Lymphocytes/100 WBC (Bld) 15.3 % Low 20.0-45.0 [facility] Comment on above: Performed By: #### 5 102, 27218 #### [facility] [address] MCH (RBC) [Entitic mass] 29.1 pg Normal 27.0-33.0 [facility] Comment on above: Performed By: #### 102, 51112 #### [facility] [address] MCHC (RBC) [Mass/Vol] 32.0 g/dL Normal 32.0-35.0 [facility] Comment on above: Performed By: #### 5 102, 56219 #### [facility] [address] [facility]. [address] MCV (RBC) [Entitic vol] 91.0 fL Normal 82.0-98.0 [facility] Comment on above: Performed By: #### 5 102, 78249 #### [facility] [address] [facility] [place] [address], [facility] Monocytes (Bld) [#/Vol] 0.4 10*3/uL Normal 0.1-1.0 [facility] Comment on above: Performed By: #### 5 102, 58738 #### [facility] [address] [facility] [place] [address], [facility] MONOS 5.6 % Normal 5.0-12.0 [facility] Comment on above: Performed By: #### 5 102, 67999 #### [facility] [address] [facility] [place] [address], [facility] Neutrophils/100 WBC (Bld) 74.8 % High 40.0-72.0 [facility] Comment on above: Performed By: #### 5 102, 35731 #### [facility] [address] [facility]. [address] Nucleated RBC/100 WBC (Bld) [Ratio] 0 % Normal 0-0 [facility] Comment on above: Performed By: #### 5 102, 80438 #### [facility] [address] [facility] [place] [address], [facility] PLAT CNT 291 10*3/uL Normal 150-400 [facility] Comment on above: Performed By: #### 5 102, 47289 #### [facility] [address] [facility]. [address] RBC (Bld) [#/Vol] 3.99 10*6/uL Normal 3.80-5.00 [facility] Comment on above: Performed By: #### 5 102, 08660 #### [facility] [address] [facility]. [address] WBC (Bld) [#/Vol] 6.75 10*3/uL Normal 4.00-10.60 [facility] Comment on above: Performed By: #### 5 102, 55261 #### [facility] [address] [facility]. [address] COMP METABOLIC PANELon 06-06 Albumin [Mass/Vol] 4.0 g/dL Normal 3.5-5.7 [facility] Comment on above: Performed By: #### 0 012, 14901 #### [facility] [address] [facility] [place] [address], [facility] ALKALINE PHOSPH 79 IU/L Normal 34-104 [facility] Comment on above: Performed By: #### 0 012, 25778 #### [facility] [address] [place] [address], [place] ALT [Catalytic activity/Vol] 21 U/L Normal 7-52 [facility] Comment on above: Performed By: #### 0 0121, 80990 #### [facility] [address] [place] [address], [place] AST [Catalytic activity/Vol] 19 U/L Normal 13-39 [facility] Comment on above: Performed By: #### 0 0121, 31748 #### [facility] [address] [place] [address], [place] Bilirubin [Mass/Vol] 0.3 mg/dL Normal 0.3-1.0 [facility] Comment on above: Performed By: #### 0 0121, 63849 #### [facility] [address] [place] [address], [place] Calcium [Mass/Vol] 9.2 mg/dL Normal 8.6-10.3 [facility] Comment on above: Performed By: #### 0 0121, 59597 #### [facility] [address] [place] [address], [place] Chloride [Moles/Vol] 100 mmol/L Normal 98-107 [facility] Comment on above: Performed By: #### 0 0121, 00514 #### [facility] [address] [place] [address], [place] CO2 [Moles/Vol] 30 mmol/L Normal 21-31 [facility] Comment on above: Performed By: #### 0 0121, 11667 #### [facility] [address] [place] [address], [place] Creatinine [Mass/Vol] 0.53 mg/dL Low 0.60-1.20 [facility] Comment on above: Performed By: #### 0 0121, 43295 #### [facility] [address] [place] [address], [place] GFR/1.73 sq M predicted among blacks MDRD (S/P/Bld) [Vol rate/Area] mL/min/{1.73_m2} Normal >60 [facility] Comment on above: Performed By: #### 0 0121, 49055 #### [facility] [address] [place] [address], [place] GFR/1.73 sq M predicted among non-blacks MDRD (S/P/Bld) [Vol rate/Area] mL/min/{1.73_m2} Normal >60 [facility] Comment on above: Performed By: #### 0 0121, 10173 #### [facility] [address] [place] [address], [place] Glucose [Mass/Vol] 156 mg/dL High 70-100 [facility] Comment on above: Performed By: #### 0 0121, 06504 #### [facility] [address] [place] [address], [place] Potassium [Moles/Vol] 3.8 mmol/L Normal 3.5-5.1 [facility] Comment on above: Performed By: #### 0 0121, 48473 #### [facility] [address] [place] [address], [place] Protein [Mass/Vol] 7.4 g/dL Normal 6.0-8.3 [facility] Comment on above: Performed By: #### 0 0121, 97133 #### [facility] [address] [place] [address], [place] Sodium [Moles/Vol] 137 mmol/L Normal 136-145 [facility] Comment on above: Performed By: #### 0 0121, 91492 #### [facility] [address] [place] [address], [place] Urea nitrogen [Mass/Vol] 7 mg/dL Normal 7-25 [facility] Comment on above: Performed By: #### 0 0121, 76875 #### [facility] [address] CYCLIC [place]INATED PEPTIDE [place] [id number] 06-06-2018 CYCLIC CIT PEP 8 Units Normal 0-19 [facility] Comment on above: Result Comment: INTE RPRETIVE [...] be monitored and testing repeated. Performed by [employer], [address] [place] [id number] [email or web address], Inocente Gregory MD - Lab. Director MISCELLANEOUS PATHon 019 RESULT Results to be mailed directly to physician's office by reference lab. Normal [facility] Comment on above: Order Comment: RA DI SEASE ACTIVITY WITH SCORING-VECTRA DA BOX Result Comment: VECT RA DA [employer] [address] [place] [address]. [place], [place] [id number] No result expected. For billing and tracking purposes only. Performed By: #### 8 4608 #### [facility] [address] [place] [address], [facility] RHEUMATOID FACTOR SERUMon RA <20 Normal 0-20 [facility] Comment on above: Performed By: #### 1 0204 #### [facility] [address] SEDIMENTATION RATEon 019 SED RATE 40 mm/hr High 0-20 [facility] Comment on above: Performed By: #### 5 0103, 17293 #### [facility] [address] [facility]. [address] TSH3 WITH REFLEXon 9 Free T4 [Mass/Vol] 0.71 ng/dL Normal 0.71-1.85 [facility] Comment on above: Result Comment: This result added by IF on 06/06/2018 15:57. Performed By: #### 0 0121, 82456 #### [facility] [address] [facility]. [address] TSH 3RD GENERATION 1.27 uIU/mL Normal 0.34-5.60 [facility] Comment on above: Performed By: #### 0 0121, 45498 #### [facility] [address] [facility]. [address] Encounters Encounter Date Encounter Type Care Provider Facility Start: 10-08-2023 End: 10-08-2023 ambulatory LASHAUN HILL Not Available Start: 07-17-2023 End: 07-17-2023 ambulatory LASHAUN HILL Not Available Start: 06-26-2023 End: 06-26-2023 ambulatory PAPITO STEWARD [facility] Start: 03-27-2023 End: 03-27-2023 ambulatory PAPITO STEWARD [facility] Start: 06-20-2022 End: 06-21-2022 ambulatory [facility] Facility[facility] Start: 01-04-2022 End: 01-05-[address] DOCTOR SPARKS Facility:[facility] Start: 10-08-[address] DOCTOR SPARKS Facility :[facility] Procedures Date Procedure Procedure Detail Performing Clinician Start: 06-26-2023 Follow-up visit Follow-up PAPITO STEWARD Payers Date Payer Category Payer Medicaid [id number] 1970 Unknown [id number] 2.16.84 [id number] 1970 Unknown [id number] 2.16.84 [id number] 1971 Unknown [id number] 2.16.84 [id number] 1971 Unknown [id number] 2.16.84 [id number] 1971 Unknown [id number] 2.16.84 [id number] 1971 Unknown [id number] 2.16.84 [id number] 1959 Self-pay 1958 Unknown [id number] Clinical Notes 03-27-2023 to 06-28-2023 Note Date & Type Note Facility 06-28-2023 Note Consult agreement. Patient requests RX be sent to [facility]. [facility] 06-26-2023 Note The prior authorizat ion has been approved through 09/24/2023, authorization #: [id number]. Copay $0. I tried reaching the patient to provide an update - no answer, LVMTCB. Makenna Jackson CPhT [facility] 06/28/23 9:01 AM [facility] 06-26-2023 Note Specialty Pharmacy N ote: [facility] Supervising Physician & Clinic:?? Dr Papito Steward & [facility] Rheumatology Marisol Ramirez is a 52 y.o. [...] Baclofen (03/2015-06/2018); ineffective Humira (06/2014-11/2014); ineffective Remicade (11/[id number]); allergic reaction Actemra (unknown dates); ineffective Lyrica [...] LVMTCB. Joycelyn Galvez PharmD Outpatient Clinical Pharmacist [facility] [phone] 06/26/23 4:15 PM [facility] 06-26-2023 Note Patient returned tari l to let us know that [facility] will include the Rinvoq in her next pill packs. She currently has enough on hand to last until then. We will no longer follow up until time for PA renewal. Patient will call with any further questions or issues. Martha Wlison PharmD, [facility] Outpatient Clinical Pharmacist [facility] [phone] 07/09/23 12:49 PM [facility] 06-26-2023 Note Called patient to janene thompson on the status of her Rinvoq- she still hasn't reached out to [facility]. She will call them today and call us back with an update. Joycelyn Galvez PharmD Outpatient Clinical Pharmacist [facility] [phone] 07/09/23 12:43 PM [facility] 06-26-2023 Note Called patient to se tello if she heard from [facility] regarding shipment/delivery- LVMTCB. Joycelyn Galvez PharmD Outpatient Clinical Pharmacist [facility] [phone] 07/05/23 11:29 AM [facility] 06-26-2023 Note Called patient to in form her of PA approval, $0 copay, and RX at [facility]. Patient states she has not heard from [facility]- I called them to check the status of the RX and it is currently in process and ready for shipment when they hear from the patient ($0 copay). I called patient to provide her with [facility] phone # [phone]. Also discussed repeating her lipid panel that Dr Sy ross ordered- LVMTCB. Joycelyn Galvez PharmD Outpatient Clinical Pharmacist [facility] [phone] 07/02/23 12:56 PM [facility] 06-26-2023 Note Patient called back and requested RX be transferred to [facility]. I will send RX there. Mady Segovia PharmD Outpatient Clinical Pharmacist [facility] [phone] 06/28/23 9:29 AM [facility] 06-26-2023 Note -------- Attestation signed [...] was present and supervised the procedure -------- [place] Protocol Documentation for Invasive Procedures List all members of procedural/operative team: Dr. Uriostegui and Dr Steward Verification of correct patient [...] 2 patient identifiers) Media Information Document Information [facility] Clinical: Clinical Unknown Left 3rd mcp 06/26/2023 11:18 Attached To: Follow-Up on 06/26/23 with Papito Steward MD Source Information Kenneth Uriostegui MD [facility] Media Information Document Information [facility] Clinical: Clinical Unknown Left wrist 06/26/2023 11:18 Attached To: Follow-Up on 06/26/23 with Papito Steward MD Source Information Kenneth Uriostegui MD [facility] Media Information Document Information [facility] Clinical: Clinical Unknown Right 2nd mcp 06/26/2023 11:17 Attached To: Follow-Up on 06/26/23 with Papito Steward MD Source Information Kenneth Uriostegui MD [facility] Media Information Document Information [facility] Clinical: Clinical Unknown Right wrist 06/26/2023 11:17 Attached To: Follow-Up on 06/26/23 with Papito Steward MD Source Information Kenneth Uriostegui MD [facility] Media Information Document Information [facility] Clinical: Clinical Unknown Right wrist 06/26/2023 11:17 Attached To: Follow-Up on 06/26/23 with Papito Steward MD Source Information Kenneth Uriostegui MD [facility] 06-26-2023 Note Subjective Patient ID: [...] She needs to go back on it. [facility] 03-27-2023 Note Specialty Pharmacy N ote: Enbrel Mini Cartridge Supervising Physician & Clinic:?? Dr. Papito Steward, [facility] Rheumatology Marisol Omer Binhbreannekvng is a 52 y.o. year old female [...] Xeljanz (05/2016-12/2019) Baclofen (03/2015-06/2018) Humira (06/2014-11/2014) Remicade ([id number]) Actemra (unknown dates) No pertinent drug interactions [...] labs from 11/2022. Awaiting determination.? Martha Wilson, [place], [facility] Outpatient Clinical Pharmacist [facility] [phone] 03/27/23 4:04 PM [facility] 03-27-2023 Note Prior Authorization for Enbrel has been approved 03/28/2023-06/25/2023. Case ID/Authorization Number: [id number] Going through for a $0 copay, I called the patient and she would like us to mail that to her. Lexi Jacques [facility] 03/29/23 10:49 AM [facility] 03-27-2023 Note -------- Attestation signed [...] by Lakeisha Dhaliwal, MS-[address] Steward. [facility] 03-27-2023 Note -------- Attestation signed [...] was present and supervised the procedure -------- [place] Protocol Documentation for Invasive Procedures List all members of procedural/operative team: Kenneth Uriostegui MD, Papito Steward MD Verification of correct [...] 2 patient identifiers) Media Information Document Information [facility] Clinical: Clinical Unknown Left wrist 03/27/2023 11:37 Attached To: Follow-Up on 03/27/23 with Papito Steward MD Source Information Kenneth Uriostegui MD [facility] Media Information Document Information [facility] Clinical: Clinical Unknown Right 3rd mcp 03/27/2023 11:37 Attached To: Follow-Up on 03/27/23 with Papito Steward MD Source Information Kenneth Uriostegui MD [facility] Media Information Document Information [facility] Clinical: Clinical Unknown Right extensors 03/27/2023 11:36 Attached To: Follow-Up on 03/27/23 with Papito Steward MD Source Information Kenneth Uriostegui MD [facility] Media Information Document Information [facility] Clinical: Clinical Unknown Right wrist 03/27/2023 11:36 Attached To: Follow-Up on 03/27/23 with Papito Steward MD Source Information Kenneth Uriostegui MD [facility] Media Information Document Information [facility] Clinical: Clinical Unknown Right wrist 03/27/2023 11:36 Attached To: Follow-Up on 03/27/23 with Papito Steward MD Source Information Kenneth Uriostegui MD [facility] Summary Purpose Family History No Family History Records FoundNo Family History Records FoundNo Family History Records FoundNo Family History Records Found Advance Directives No Advanced Directives Records FoundNo Advanced Directives Records FoundNo Advanced Directives Records FoundNo Advanced Directives Records Found Additional Source Comments INFORMATION SOURCE (unrecogn ized section and content) DATE CREATED AUTHOR 05/29/2019 [facility] DATE CREATED AUTHOR AUTHOR'S ORGANIZ ATION 06/27/2022 [facility] DATE CREATED AUTHOR AUTHOR'S ORGANIZ ATION 10/10/[address] [facility] EPIC DATE CREATED AUTHOR AUTHOR'S ORGANIZ ATION 01/26/2024 [facility] FOR RECORDS PERTAINING TO PATIENTS WHO ARE [...] BE BASED ON THE PRIMARY CLINICAL RECORDS. [facility] [email or web address] [facility]. provides no warranty or guarantee of the accuracy or completeness of information in this document.
[2024-04-30 11:55] LABS: Alanine Aminotransferase 31 U/L (14-59); Albumin Globulin Ratio 0.9; Albumin Level 3.7 g/dL (3.4-5.0); Alkaline Phosphatase 81 U/L (46-116); Anion Gap 11.7; Aspartate Amino Transferase 40 U/L (15-37); BUN Creatinine Ratio 14.5; Bilirubin Total 0.3 mg/dL (0.2-1.0); Calcium 8.9 mg/dL (8.5-10.1); Carbon Dioxide 28.5 mmol/L (21.0-32.0); Chloride 104 mmol/L (98-107); Chol HDL Ratio 3.2; Cholesterol 150 mg/dL (<=200); Estimated GFR (African America >60 (>=60 mL/min/1.73m^2); Estimated GFR (Non-African Ame >60 (>=60 mL/min/1.73m^2); Globulin 3.9 g/dL; Glucose 95 mg/dL (74-106); HDL Cholesterol 47 mg/dL (40-60); LDL Cholesterol Calculated 81.4 mg/dL; Potassium 4.2 mmol/L (3.5-5.1); Sodium 140 mmol/L (136-145); Total Protein 7.6 g/dL (6.4-8.2); Triglycerides 108 mg/dL (<=150); VLDL CHOLESTEROL 21.6 mg/dL
== END 2024-04-30 11:25 | disposition home or self-care (01) ==
DX: E78.5 Hyperlipidemia, unspecified (principal)
CPT/HCPCS: 36415; 80053; 80061